=== PATIENT | female | born 1985 | race Caucasian/White ===

== ENCOUNTER 2023-04-07 10:45 | Emergency (ER) | payer OTHER, SELFPAY ==
[2023-04-07 10:54] VITALS: BP 107/70; PULSE 77; RESP 18; TEMP 36.8; O2SAT 100; BMI 35.9
--- NOTE | 2023-04-07 10:58 | XR_ITS ---
The [address] [address] Patient Name: LIANA JASON MRN: [id number] date: 1985 Sex: F Assigned Patient Location: ER Current Patient Location: ER Accession/Order Number: [id number] Exam Date: 04/07/2023 11:25 Report Date: 04/07/2023 12:07 At the request of: NIRMAL MORRISON Procedure: XR mandible <4V EXAM: XR mandible <4V HISTORY: right-sided pain after a seizure two days ago COMPARISON: None TECHNIQUE: Mandible study was performed with a total of 5 views obtained. FINDINGS: Mandible to include the condyles appears grossly unremarkable. No convincing evidence of acute fracture or dislocation. No obvious temporomandibular joint dislocation. Soft tissues appear grossly unremarkable. XR/XR mandible <4V IMPRESSION: Mandible study fails to demonstrate definite evidence of acute fracture or dislocation. If symptoms persist follow-up CT facial bones study may be considered for further evaluation. Follow-up as needed. Electronically authenticated by: SUZI JEONG Date: 04/07/2023 12:07
--- NOTE | 2023-04-07 10:59 | ED_ITS ---
HPI - General Adult General Chief complaint: Dental/Oral Stated complaint: UPPER EXTREMITY PAIN L SIDE FACE Time Seen by Provider: 04/07/23 10:48 Source: patient Mode of arrival: walk-in Limitations: no limitations History of Present Illness HPI narrative: 37-year-old female presents for pain in the right side of her jaw. She's had this for two days and she woke from a seizure. She didn't fall when she had her seizure. She doesn't recall any trauma and she doesn't complain of a tooth pain. It just isn't getting better so she came in here to get it checked out and it's moderate to severe. Related Data Home Medications Medication Instructions Recorded Confirmed levetiracetam 1,000 mg tablet 1,500 mg PO BID 04/07/23 04/07/23 topiramate 50 mg tablet 50 mg PO BID 04/07/23 04/07/23 Previous Rx's Medication Instructions Recorded ibuprofen 800 mg tablet 800 mg PO Q8H PRN pain #20 tabs 04/07/23 Allergies Allergy/AdvReac Type Severity Reaction Status Date / Time No Known Drug Allergies Allergy Verified 04/07/23 10:53 Review of Systems ROS Narrative A ten point review of systems is negative except as noted above. PFSH PFSH Social History Smoking status: Never smoker Exam Narrative Exam Narrative: Nurses note and vital signs reviewed and patient is not hypoxic. General: The patient appears uncomfortable. She is tearful. Skin: Warm, dry, no pallor noted. There is no rash noted. Head: Normocephalic, atraumatic Eye: Normal conjunctiva, no drainage Ears, Nose, Mouth, and Throat: oral mucosa is moist. Nares patent. mouth has no intraoral lesions. There is no obvious dental caries. No gingival swelling or erythema. No bleeding or pus. No swelling to the floor of her mouth. She has no obvious swelling to her face. Cardiovascular: Regular Rate and Rhythm Respiratory: Patient is in no distress, no accessory muscle use, lungs are clear to auscultation, no wheezing, rales or rhonchi Back: non-tender GI: soft and nontender Musculoskeletal: The patient has no evidence of calf tenderness, no pitting edema, symmetrical pulses noted bilaterally Neurological: A&O, normal speech Psychiatric: Cooperative Constitutional Vital Signs, click to edit/add: Last Vital Signs Temp 98.2 F 04/07/23 10:54 Pulse 77 04/07/23 10:54 Resp 18 04/07/23 10:54 BP 107/70 04/07/23 10:54 Pulse Ox 100 04/07/23 10:54 O2 Del Method Room Air 04/07/23 10:54 Course Vital Signs Vital signs: Vital Signs Temperature 98.2 F 04/07/23 10:54 Pulse Rate 77 04/07/23 10:54 Respiratory Rate 18 04/07/23 10:54 Blood Pressure 107/70 04/07/23 10:54 Pulse Oximetry 100 04/07/23 10:54 Oxygen Delivery Method Room Air 04/07/23 10:54 Temperature 98.2 F 04/07/23 10:54 Pulse Rate 77 04/07/23 10:54 Respiratory Rate 18 04/07/23 10:54 Blood Pressure 107/70 04/07/23 10:54 Pulse Oximetry 100 04/07/23 10:54 Oxygen Delivery Method Room Air 04/07/23 10:54 Medical Decision Making MDM Narrative Medical decision making narrative: mandible x-ray per radiologist shows no acute findings. She was given IM Toradol and she is going to follow-up with her dentist. Treatment diagnosis and follow- up were discussed with the patient. Differential Diagnosis Differential Diagnosis: jaw pain, mandible fracture, dental caries Imaging Data mandible x-ray: Radiologist's impression: Procedure: XR mandible <4V EXAM: XR mandible <4V HISTORY: right-sided pain after a seizure two days ago COMPARISON: None TECHNIQUE: Mandible study was performed with a total of 5 views obtained. FINDINGS: Mandible to include the condyles appears grossly unremarkable. No convincing evidence of acute fracture or dislocation. No obvious temporomandibular joint dislocation. Soft tissues appear grossly unremarkable. IMPRESSION: Mandible study fails to demonstrate definite evidence of acute fracture or dislocation. If symptoms persist follow-up CT facial bones study may be considered for further evaluation. Follow-up as needed. Electronically authenticated by: SUZI JEONG Date: 04/07/2023 12:07 Discharge Plan Discharge Chief Complaint: Dental/Oral Clinical Impression: Pain in lower jaw Patient Disposition: Home, Self-Care Time of Disposition Decision: 12:15 Condition: Good Mode of Transportation: Private Vehicle Prescriptions / Home Meds: New ibuprofen 800 mg tablet 800 mg PO Q8H PRN (Reason: pain) Qty: 20 0RF No Action levetiracetam 1,000 mg tablet 1,500 mg PO BID topiramate 50 mg tablet 50 mg PO BID Instructions: Atypical Facial Pain (ED) Additional Instructions: follow-up with your dentist Stand Alone Forms: Portal Instructions Referrals: STEFANI RUBY [Primary Care Provider] - 1 week
--- NOTE | 2023-04-07 11:00 | PC.NURSE ---
Reports pain to right side of jaw, no redness or swelling present.
[2023-04-07] MEDS: KETOROLAC TROMETHAMINE 60 MG/2 ML VIAL IM (12:22)
== END 2023-04-07 12:27 | disposition home or self-care (01) ==
PROVIDERS: Emergency Provider Emergency Medicine; PCP Family Medicine
DX: R68.84 Jaw pain (principal); R56.9 Unspecified convulsions
CPT/HCPCS: 70100; 96372; 99284

== ENCOUNTER 2023-10-03 11:27 | Outpatient (OUT) | payer BC, SELFPAY ==
--- NOTE | 2023-10-03 11:35 | US_ITS ---
[address] [address] Patient Name: LIANA JASON MRN: [id number] date: 1985 Sex: F Assigned Patient Location: [facility] Current Patient Location: [facility] Accession/Order Number: [id number] Exam Date: 10/03/2023 12:12 Report Date: 10/03/2023 12:54 At the request of: NON-STAFF PHYSICIAN Procedure: US renal BI EXAMINATION: US renal BI HISTORY: Dysuria, Tenderness COMPARISON: No relevant comparison available. TECHNIQUE: Ultrasound examination was performed of the bladder. FINDINGS: Right Kidney: Normal in size, contour and echotexture. 2 mm echogenic focus, nonobstructing nephrolith. The cortex measures 1.2 cm. Height: 4.3 cm Length: 10.5 cm Width: 4.1 cm Left Kidney: Normal in size, contour and echotexture. The cortex measures 1.3 cm. 1.1 cm anechoic area inferior lateral cortex, cortical cyst Height: 4.1 cm Length: 10.2 cm Width: 4.0 cm Urinary bladder: 250 mL Ureteral jets: Visualized bilaterally US/US renal BI IMPRESSION: 2 mm nonobstructing right nephrolith 1.1 cm left renal cortical cyst Electronically authenticated by: XANDER VITAL Date: 10/03/2023 12:54
--- OUTSIDE RECORDS SUMMARY | 2023-10-03 11:36 | XMS_ITS | CCD ---
Author Organization [facility] Care Team Providers Care Margin Clerk Name Role Phone DR KEERTHI WILLIAM Consulting Unavailable WILLIAM, DR KEERTHI Acevedo Attending Unavailable WILLIAM, DR KEERTHI Acevedo Admitting Unavailable WILLIAM, DR KEERTHI Acevedo Primary Care Unavailable MISC, DR ARMAS Admitting Unavailable MISC, DR ARMAS Consulting Unavailable MISC, DR ARMAS Attending Unavailable WILLIAM, DR KEERTHI Acevedo Primary Care Unavailable Joycelyn Nash Unavailable MD Keerthi William Primary Care Provider [phone] SHYAM Nash Attending Provider Joycelyn Nash Attending Unavailable Joycelyn Nash Admitting Unavailable Keerthi William Primary Care Unavailable Brigida Martin Primary Care Physician Laila Carmona Unavailable MARTA Santoyo Attending Rekha FAHAD Colby Attending Unavailable Allergies Allergy Classification Reported Allergen(s) Allergy Type Date of Onset Reaction(s) Facility (4 sources) NIFEdipine; Translations: [Procardia] Drug Allergy 6 tachycardia [facility] Repository (3 sources) NIFEdipine; Translations: [nifedipine] Drug Allergy 1 Tachycardia (finding) [facility] Medications Current Medications Medication Drug Class(es) Dates Sig (Normalized) Sig (Original) [id number] 200 actuat albuterol 0.09 mg/actuat metered dose inhaler (1 source) beta2-Adrenergic Agonist Start: 03-15-2023 take 2 puff(s) by inhalation four times daily as needed Albuterol Sulfate HFA 108 (90 Base) MCG/ACT 2 puffs Inhalation 4 times a day prn Feb, Active amitriptyline hydrochloride 25 mg oral tablet (1 source) Tricyclic Antidepressant Start: 10-21-2020 take 25 mg by mouth once daily at bedtime Amitriptyline Active 25 MG PO Daily at bedtime 30 October 21, 2020 12:00am benzonatate 100 mg oral capsule (1 source) Non-narcotic Antitussive Start: 03-14-2023 End: 03-24-2023 take 1 capsule by mouth three times daily Tessalon 100 mg Cap 100 mg = 1 cap(s), Oral, TID, X 10 day(s), # 30 cap(s), Refills(s) 0, Pharmacy: [phone], 154, cm, 03/14/23 11:26:00 EST, Height/Length Dosing, 86.7, kg, 02/11/23 10:10:00 EDT, Weight Dosing Start Date: 03/14/23 Stop Date: 03/24/23 Status: Ordered levETIRAcetam 1000 mg oral tablet (4 sources) Start: 02-11-2023 levetiracetam 1000 mg oral tablet See Instructions, Take 1 and 1/2 tablets BID, Refills(s) 0 Start Date: 02/11/23 Status: Ordered Start: 10-19-2020 End: 10-21-2020 take 750 mg by mouth twice daily Levetiracetam Discontinued 750 MG PO Twice daily October 19, 2020 12:00am October 21, 2020 1:39pm Keppra Active meclizine hydrochloride 25 mg oral tablet (1 source) Antiemetic Start: 10-21-2020 take 25 mg by mouth every eight hours Meclizine Active 25 MG PO Q8H October 21, 2020 12:00am predniSONE 20 mg oral tablet (1 source) Start: 03-15-2023 take 1 tablet by mouth every twelve hours predniSONE 20 MG 1 tablet Orally bid for 5 day(s) Feb, Active tiZANidine 4 mg oral tablet (3 sources) Central alpha-2 Adrenergic Agonist Start: 02-11-2023 take 2 tablets by mouth at bedtime tiZANidine 4 mg Tab 8 mg = 2 tab(s), Oral, Bedtime, Refills(s) 0 Start Date: 02/11/23 Status: Ordered tiZANidine HCl A ctive topiramate 100 mg oral tablet (3 sources) Start: 02-11-2023 take 1 tablet by mouth twice daily topiramate 100 mg Tab 100 mg = 1 tab(s), Oral, BID, Refills(s) 0 Start Date: 02/11/23 Status: Ordered Topamax Active traZODone hydrochloride 50 mg oral tablet (1 source) Serotonin Reuptake Inhibitor Start: 02-11-2023 traZODONE 50 mg Tab See Instructions, take half tablet for 2 weeks then increase to 1 tablet daily at bedtime, Refills(s) 0 Start Date: 02/11/23 Status: Ordered venlafaxine 37.5 mg oral tablet (1 source) Serotonin and Norepinephrine Reuptake Inhibitor Start: 10-19-2020 take 37.5 mg by mouth twice daily Venlafaxine Active 37.5 MG PO Twice daily October 19, 2020 12:00am Completed/Discontinued Medications Medication Drug Class(es) Dates Sig (Normalized) Sig (Original) Ketorolac (2 sources) Nonsteroidal Anti-inflammatory Drug, Cyclooxygenase Inhibitor Start: 09-11-2018 Toradol per 15 mg August, 60 mg Problems Active Problems Problem Classification Problem Date Documented Da te Episodic/Chronic Epilepsy; convulsions (4 sources) Epilepsy, unspecified, not intractable, without status epilepticus; Translations: [EPILEPSY UNS NOT INTRACT W/O SE] Onset: 04-30-2022 Chronic Epilepsy; convulsions (3 sources) Unspecified convulsions; Translations: [Seizure] Onset: 07-30-2021 10-21-2020 Episodic Headache; including migraine (1 source) Headache; Translations: [Headache] 10-21-2020 Episodic Other gastrointestinal disorders (2 sources) Diarrhea; Translations: [Diarrhea, unspecified] Onset: 03-14-2023 Episodic Other injuries and conditions due to external causes (1 source) Injury, unspecified, initial encounter Episodic Other lower respiratory disease (2 sources) Cough; Translations: [Cough, unspecified] Onset: 03-14-2023 Episodic Other upper respiratory infections (1 source) Sinusitis 02-11-2023 Chronic Other upper respiratory infections (2 sources) Acute pharyngitis; Translations: [Acute pharyngitis, unspecified] Onset: 03-14-2023 Episodic Otitis media and related conditions (1 source) Otitis media of left ear 02-11-2023 Episodic Residual codes; unclassified (1 source) Sleep deprivation; Translations: [Sleep deprivation] 10-21-2020 Episodic Superficial injury; contusion (1 source) Contusion of right hand, initial encounter Episodic Thyroid disorders (4 sources) Nontoxic multinodular goiter; Translations: [NONTOXIC MULTINODULAR GOITER] Onset: 07-25-2021 Chronic Unclassified (1 source) Contusion of right hand, initial encounter; Translations: [Contusion of right hand, initial encounter] Onset: 08-18-2022 Unclassified (1 source) History of clinical finding in subject 03-14-2023 Past or Other Problems Problem Classification Problem Date Documented Da te Episodic/Chronic Unclassified (1 source) Contact with and (suspected) exposure to covid-19 Z20.822 Viral infection (3 sources) Disease caused by 2019-nCoV; Translations: [COVID-19] Onset: 03-14-2023 Results Test Name Value Interpretation Reference Range Facility [facility] 04-25-2023 Forms [id number] IFF Normal [facility] ED Note-Physicianon 04-08-20 ED Note-Physician [id number] IFF Normal [facility] RAD - MISCon 04-07-2023 RAD - MISC [id number] IFF Normal [facility] COVID Quick Testingon 2022 Result Negative [employer] Other COVID/FLU RT-PCRon SARS-CoV-2 (COVID-19) RNA CECILE+probe Ql (Unsp spec) Positive [employer] Other COVID/FLU RT-PCR Negative [employer] Other Ambulatory Visit Summaryon 05-14-2022 Ambulatory Visit Summary LIANA JASON :1985 Visit Date:03/14/2023 Ambulatory Visit Instructions Your Diagnosis COVID Cough Sore throat Diarrhea Your Care Team Attending Physician - Leatha Coyne Primary Care Physician - Brigida Garg This Is Your Medications List benzonatate (Tessalon 100 mg Cap) Contact prescribing physician if questions or concerns levetiracetam (levetiracetam 1000 mg oral tablet) tizanidine (tiZANidine 4 mg Tab) topiramate (topiramate 100 mg Tab) trazodone (traZODONE 50 mg Tab) [Image Removed: STOP]Stop taking these medications fluconazole (Diflucan 150 mg Tab) Discharge Vitals Height 154 cm Height 61 in What to do next You Need to Schedule the Following Appointments Follow Up with Natanael LOZANO, Leatha Alvarado When: Only if needed Where: [address], [place] [address]- Medications What How Much When Why Instructions New benzonatate (Tessalon 100 mg Cap) 1 Capsules By Mouth 3 times a day Cough Duration: 10 Days Pickup at [phone] Unchanged levetiracetam (levetiracetam 1000 mg oral tablet) See instructions Take 1 and 1/ 2 tablets BID Contact prescribing physician if questions or concerns Unchanged tizanidine (tiZANidine 4 mg Tab) 2 Tablets By Mouth At bedtime Contact prescribing physician if questions or concerns Unchanged topiramate (topiramate 100 mg Tab) 1 Tablets By Mouth 2 times a day Contact prescribing physician if questions or concerns Unchanged trazodone (traZODONE 50 mg Tab) See instructions take half tablet for 2 weeks then increase to 1 tablet daily at bedtime Contact prescribing physician if questions or concerns Pharmacy Information [email or web address]: [address] [place], [place] [id number] [phone] What How Much When Comments Stop Taking fluconazole (Diflucan 150 mg Tab) 1 Tablets By Mouth Once Allergies Procardia (Tachycardia) Problems Ongoing - Any problem that you are currently receiving treatment for. Cough COVID Diarrhea History of seizures Left otitis media Sinusitis Sore throat Patient Survey You may receive a survey via text or e-mail asking about your office visit. Please share your experience with us by completing your survey. We appreciate your feedback and thank you for choosing us for your care. Education Materials Cough, Adult Coughing is a reflex that clears your throat and your airways (respiratory system). Coughing helps to heal and protect your lungs. It is normal to cough occasionally, but a cough that happens with other symptoms or lasts a long time may be a sign of a condition that needs treatment. An acute cough may only last 2?3 weeks, while a chronic cough may last 8 or more weeks. Coughing is commonly caused by: ? Infection of the respiratory systemby viruses or bacteria. ? Breathing in substances that irritate your lungs. ? Allergies. ? Asthma. ? Mucus that runs down the back of your throat (postnasal drip). ? Smoking. ? Acid backing up from the stomach into the esophagus (gastroesophageal reflux). ? Certain medicines. ? Chronic lung problems. ? Other medical conditions such as heart failure or a blood clot in the lung (pulmonary embolism). Follow these instructions at home: Medicines ? Take ggbz-lhc-rgcilgm and prescription medicines only as told by your health care provider. ? Talk with your health care provider before you take a cough suppressant medicine. Lifestyle ? Avoid cigarette smoke. Do not use any products that contain nicotine or tobacco, such as cigarettes, e-cigarettes, and chewing tobacco. If you need help quitting, ask your health care provider. ? Drink enough fluid to keep your urine pale yellow. ? Avoid caffeine. ? Do not drink alcohol if your health care provider tells you not to drink. General instructions ? Pay close attention to changes in your cough. Tell your health care provider about them. ? Always cover your mouth when you cough. ? Avoid things that make you cough, such as perfume, candles, cleaning products, or campfire or tobacco smoke. ? If the air is dry, use a cool mist vaporizer or humidifier in your bedroom or your home to help loosen secretions. ? If your cough is worse at night, try to sleep in a semi-upright position. ? Rest as needed. ? Keep all follow-up visits as told by your health care provider. This is important. Contact a health care provider if you: ? Have new symptoms. ? Cough up pus. ? Have a cough that does not get better after 2?3 weeks or gets worse. ? Cannot control your cough with cough suppressant medicines and you are losing sleep. ? Have pain that gets worse or pain that is not helped with medicine. ? Have a fever. ? Have unexplained weight loss. ? Have night sweats. Get help right away if: ? You co (more content not included)... Normal [facility] Family Medicine Office/Clini c Noteon 03-14-2023 Family Medicine Office/Clinic Note Chief Complaint Tested Postivie for COVID- History of Present Illness Liana is a 37 yo female presenting today for acute video visit d/t being COVID positive. Pt's PCP is Brigdia Martin Pt reports symptoms started 3 days ago Pt tested positive for COVID today Pt reports they are experiencing: SILVERIO, sore throat, cough, fever, body aches, diarrhea. Pt denies CP, SOB, wheezing, chest tightness, sinus pressure, ear pain/pressure, changes in taste/smell/appetite, abd pain, fatigue, urinary changes, or dizziness at this time. smoker: no no Hx of allergies, asthma, COPD, DM, CVD, CKD, HTN no Hx of deviated septum/sinus surgeries: no Pt had COVID in May Review of Systems PHQ Score Initial Depression Screen Score: 0 SCORE Physical Exam Vitals & Measurements HT: 61 in HT: 154 cm General: could not be assessed Eyes: could not be assessed Ears: Hearing grossly normal to conversational speech. Nose: could not be assessed Mouth: could not be assessed Neck: could not be assessed Lungs: normal respiratory effort. No shortness of breath noted while conversing. No audible wheezing. cough and congestion audible throughout telephone appt Cardiovascular: could not be assessed Neurologic: could not be assessed Skin: could not be assessed Musculoskeletal: could not be assessed Mental status: alert and oriented. Normal mood and affect, tearful throughout phone call Assessment/Plan Pt could not turn on the video portion of the phone - only audio available This visit was conducted via two-way, real-time interactive video communications from my office using IID due to the restrictions of the COVID-19 pandemic. No physical exam was conducted other than those areas of the body visible to telecommunications with the patient located at patient's home, with no-none_? in attendance. If it is determined that the patient should be evaluated in the clinic, the patient will be directed to the appropriate clinic or venue. The patient or their guardian verbally consented to this visit. Total time spent preparing the chart, conducting the encounter with the patient and family, and time spent documenting, reviewing, and ordering tests was _18? minutes. 1. COVID (U07.1: COVID-19) Please inform pt they are positive for COVID-19. Quarantine for 5 days from the start of symptoms or known exposure. Strict quarantine is recommended. If develops SOB/CP, severe pain/headache, seek ED/call 911- informing them of COVID + results prior to arrival/pickup. Discussed that COVID is a viral syndrome which typically last 5 to 12 days. Continue symptomatic treatment with as needed Tylenol/ibuprofen for any discomfort. Fluids, rest encouraged. New CDC guidelines are to quarantine x5 days from symptom onset. After 5 days may return to normal activities as long as overall improvement of symptoms and no fever for 24 hours. Needs to continue to wear a mask in public and while at work or school for the next 5 days after quarantine ends. Work note written until 03/17/23 Take the following: Vit D3 4000-10,000 units QD Vit C 2000 BID/TID Zinc 40 mg (elemental) QD Continue regimen x 2 weeks 2. Cough (R05.9: Cough, unspecified) continue using tessalon perles TID x 10 days - already prescribed by Brigida Swab Suspect viral URI and discussed likely duration of sx and red flags/when to seek emergency care. Rest and push fluids, Vit C, D and zinc x 2 weeks. Pt verbalized understanding f/u PRN Ordered: benzonatate, 100 mg = 1 cap(s), Oral, TID, X 10 day(s), # 30 cap(s), Refills(s) 0, Pharmacy: [email or web address], 154, cm, 03/14/23 11:26:00 EST, Height/Length Dosing, 86.7, kg, 02/11/23 10:10:00 EDT, Weight Dosing 3. Sore throat (J02.9: Acute pharyngitis, unspecified) For symptom management, recommended using Cepacol throat lozenges (if >5 years old), Chloraseptic spray (if >3 years old), tea, honey (avoid if <1 year old), warm salt water gargles. Cool/cold drinks may be soothing to the throat. Follow up with Primary Care Provider if symptoms do not improve over next 7-10 days, if become worse, or if develops rash. 4. Diarrhea (R19.7: Diarrhea, unspecified) Pt denies any alarm features including, profuse watery diarrhea causing hypovolemia, blood in stool, severe abd pain, unexplained weight loss, nocturnal diarrhea, rectal bleeding, pus in stool, fever > 101.3*F, ABRAHAM, family hx of colon CA, celiac dz or IBD. [place] stool form scale discussed. Will order CMP, CBC and stool studies (stool culture, clostridium difficile by PCR, enteric panel by PCR, fecal WBC lactoferrin, giardia lamblia direct detection EIA, OandA exam (ova and parasites) and call pt with results. Recommended the pt use diluted fruit juices or electrolytes drinks and saltine crackers with brothes to meet fluid and salt needs d/t mild illness. Boiled starches and cereals (eg, potatoes, noodles, rice, wheat, and oat) with salt are indicated in patients with watery diarrhea; crackers (more content not included)... Normal [facility] Comment on above: Result Comment: Elec tronically Signed By: Natanael LOZANO, Leatha Alvarado\.br\Date and Time Signed: 03/14/23 11:47 EST Patient Educationon 03-14-20 Patient Education ENT Cough, Adult Coughing is a reflex that clears your throat and your airways (respiratory system). Coughing helps to heal and protect your lungs. It is normal to cough occasionally, but a cough that happens with other symptoms or lasts a long time may be a sign of a condition that needs treatment. An acute cough may only last 2?3 weeks, while a chronic cough may last 8 or more weeks. Coughing is commonly caused by: ? Infection of the respiratory systemby viruses or bacteria. ? Breathing in substances that irritate your lungs. ? Allergies. ? Asthma. ? Mucus that runs down the back of your throat (postnasal drip). ? Smoking. ? Acid backing up from the stomach into the esophagus (gastroesophageal reflux). ? Certain medicines. ? Chronic lung problems. ? Other medical conditions such as heart failure or a blood clot in the lung (pulmonary embolism). Follow these instructions at home: Medicines ? Take zzlq-aie-fzwuign and prescription medicines only as told by your health care provider. ? Talk with your health care provider before you take a cough suppressant medicine. Lifestyle ? Avoid cigarette smoke. Do not use any products that contain nicotine or tobacco, such as cigarettes, e-cigarettes, and chewing tobacco. If you need help quitting, ask your health care provider. ? Drink enough fluid to keep your urine pale yellow. ? Avoid caffeine. ? Do not drink alcohol if your health care provider tells you not to drink. General instructions ? Pay close attention to changes in your cough. Tell your health care provider about them. ? Always cover your mouth when you cough. ? Avoid things that make you cough, such as perfume, candles, cleaning products, or campfire or tobacco smoke. ? If the air is dry, use a cool mist vaporizer or humidifier in your bedroom or your home to help loosen secretions. ? If your cough is worse at night, try to sleep in a semi-upright position. ? Rest as needed. ? Keep all follow-up visits as told by your health care provider. This is important. Contact a health care provider if you: ? Have new symptoms. ? Cough up pus. ? Have a cough that does not get better after 2?3 weeks or gets worse. ? Cannot control your cough with cough suppressant medicines and you are losing sleep. ? Have pain that gets worse or pain that is not helped with medicine. ? Have a fever. ? Have unexplained weight loss. ? Have night sweats. Get help right away if: ? You cough up blood. ? You have difficulty breathing. ? Your heartbeat is very fast. These symptoms may represent a serious problem that is an emergency. Do not wait to see if the symptoms will go away. Get medical help right away. Call your local emergency services (911 in the [place] Do not drive yourself to the hospital. Summary ? Coughing is a reflex that clears your throat and your airways. It is normal to cough occasionally, but a cough that happens with other symptoms or lasts a long time may be a sign of a condition that needs treatment. ? Take bykz-xtg-bspqrwh and prescription medicines only as told by your health care provider. ? Always cover your mouth when you cough. ? Contact a health care provider if you have new symptoms or a cough that does not get better after 2?3 weeks or gets worse. This information is not intended to replace advice given to you by your health care provider. Make sure you discuss any questions you have with your health care provider. Document Revised: 04/26/2019 Document Reviewed: 04/26/2019 Elsevier Patient Education ? 2022 [employer] Infectious Disease Diarrhea, Adult Diarrhea is frequent loose and watery bowel movements. Diarrhea can make you feel weak and cause you to become dehydrated. Dehydration can make you tired and thirsty, cause you to have a dry mouth, and decrease how often you urinate. Diarrhea typically lasts 2?3 days. However, it can last longer if it is a sign of something more serious. It is important to treat your diarrhea as told by your health care provider. Follow these instructions at home: Eating and drinking Follow these recommendations as told by your health care provider: ? Take an oral rehydration solution (ORS). This is an hkuq-xbs-eujzjnh medicine that helps return your body to its normal balance of nutrients and water. It is found at pharmacies and retail stores. ? Drink plenty of fluids, such as water, ice chips, diluted fruit juice, and low-calorie sports drinks. You can drink milk also, if desired. ? Avoid drinking fluids that contain a lot of sugar or caffeine, such as energy drinks, sports drinks, and soda. ? Eat bland, cwdk-zy-etzqfl foods in small amounts as you are able. These foods include bananas, applesauce, rice, lean meats, toast, and crackers. ? Avoid alcohol. ? Avoid spicy or fatty foods. Medicines (more content not included)... Normal [facility] Provider Letteron 03-14-2023 Provider Letter (Inserted Image. Rekha ble to display) March 14, 2023 LIANA JASON [address] [place] [address] : 1985 To Whom It May Concern, Please excuse above patient from work. Date of Illness: From: _03/14/2023 To: _03/16/2023 May Return to Work On:03/17/2023 Sincerely, Leatha Santoyo [facility] [address] [place] [address], [place] [address] [facility] Lab Reportson 02-12-2023 Lab Reports [id number] IFF Normal [facility] Ambulatory Visit Summaryon 1 Ambulatory Visit Summary LIANA JASON :1985 Visit Date:02/11/2023 Ambulatory Visit Instructions Your Diagnosis Left otitis media Sinusitis Non-smoker BMI 36.0-36.9,adult Your Care Team Attending Physician - Brigida Garg Primary Care Physician - Brigida Garg This Is Your Medications List levetiracetam (levetiracetam 1000 mg oral tablet) tizanidine (tiZANidine 4 mg Tab) topiramate (topiramate 100 mg Tab) trazodone (traZODONE 50 mg Tab) Discharge Vitals Temperature (Tympanic) 36.6 ?C Heart Rate (Peripheral) 88 Respiratory Rate 20 Blood Pressure 118/76 Height 154.0 cm Height 61 in Weight 86.7 kg Weight 190.74 lb BMI 36.56 Medications What How Much When Instructions Unchanged levetiracetam (levetiracetam 1000 mg oral tablet) See instructions Take 1 and 1/ 2 tablets BID Unchanged tizanidine (tiZANidine 4 mg Tab) 2 Tablets By Mouth At bedtime Unchanged topiramate (topiramate 100 mg Tab) 1 Tablets By Mouth 2 times a day Unchanged trazodone (traZODONE 50 mg Tab) See instructions take half tablet for 2 weeks then increase to 1 tablet daily at bedtime Allergies Procardia (Tachycardia) Problems Ongoing - Any problem that you are currently receiving treatment for. Left otitis media Sinusitis Patient Survey You may receive a survey via text or e-mail asking about your office visit. Please share your experience with us by completing your survey. We appreciate your feedback and thank you for choosing us for your care. [facility] Family Medicine Office/Clini c Noteon 02-11-2023 Family Medicine Office/Clinic Note HPI Staff Liana is a 37 year old female presenting to [facility] Establish Care: History: Any previous diagnosis: Anxiety,Menorrhagia, seizures epilepsy History of seeing any specialist: Dr Meyer When was your last doctors visit: Last provider: Dr William Any recent labs: CBC & CMP 04/30/2022 Health Maintenance UTD: Colonoscopy: no Mammogram: no Pelvic/pap: 5 years was normal Acute: Current issues/complaints: Respiratory C/O: Onset: 1 week ago Body aches: yes Chest congestion: yes Chills: no Cough: yes Ear complaints: no Eye itching/watering: no Fever: no Headache: yes Nasal congestion: yes Nasal discharge: yes Poor appetite: no Reduced activity: no Sinus pain/pressure: yes Sneezing: yes Sputum production: no Wheezing: no Ill contacts: yes Remedies tried: ibuprofen and Tylenol's Questions/Concerns: pt hasn't taken anything she was afraid to take anything didn't know what would be safe. 02/10/23 tested for covid was negative. History of Present Illness pt presents today for cough and congestion that is worsening. with body aches Review of Systems PHQ Score Initial Depression Screen Score: 0 ROS - Provider Constitutional: no fever, no chills, no sweats, no fatigue Respiratory: no shortness of breath, yes cough, no orthopnea, no wheezing. congestion Cardiovascular: no chest pain, no palpitations, no edema. Neurologic: no headache, no dizziness, no numbness, no weakness. Physical Exam Vitals & Measurements T: 36.6 ?C(Tympanic) HR: 88(Peripheral) RR: 20 BP: 118/76 SpO2: 99% HT: 61 in HT: 154.0 cm WT: 86.7 kg WT: 190.74 lb BMI: 36.56 General: alert, no acute distress ENMT: oral mucosa moist, yes pharyngeal erythema or no exudate, LEft TM red and full of fluid Cardiovascular: regular rate and rhythm, normal peripheral perfusion Respiratory: Lungs CTA, respirations non labored Extremities: no deformity, no trauma Neurological: oriented x 4, LOC appropriate for age, CN II-XII intact, motor strength equal & normal bilaterally, speech normal Assessment/Plan 1. Left otitis media (H66.92: Otitis media, unspecified, left ear) Left otitis media noted on exam. pt states her jaw on the left side is also hurting. will order amoxicillin and medrol dose pack. all questions answered. RTC as needed Ordered: methylPREDNISolone, = 1 packet(s), Oral, As Directed, as directed on package labeling, X 6 day(s), # 21 tab(s), Refills(s) 0, Pharmacy: [email or web address], 154, cm, 02/11/23 10:10:00 EDT, Height/Length Dosing, 86.7, kg, 02/11/23 10:10:00 EDT, Weight Dosing 2. Sinusitis (J32.9: Chronic sinusitis, unspecified) see above Ordered: methylPREDNISolone, = 1 packet(s), Oral, As Directed, as directed on package labeling, X 6 day(s), # 21 tab(s), Refills(s) 0, Pharmacy: [email or web address], 154, cm, 02/11/23 10:10:00 EDT, Height/Length Dosing, 86.7, kg, 02/11/23 10:10:00 EDT, Weight Dosing 3. Non-smoker (Z78.9: Other specified health status) continue not smoking Ordered: methylPREDNISolone, = 1 packet(s), Oral, As Directed, as directed on package labeling, X 6 day(s), # 21 tab(s), Refills(s) 0, Pharmacy: [email or web address], 154, cm, 02/11/23 10:10:00 EDT, Height/Length Dosing, 86.7, kg, 02/11/23 10:10:00 EDT, Weight Dosing 4. BMI 36.0-36.9,adult (Z68.36: Body mass index [BMI] 36.0-36.9, adult) BMI education complere Ordered: methylPREDNISolone, = 1 packet(s), Oral, As Directed, as directed on package labeling, X 6 day(s), # 21 tab(s), Refills(s) 0, Pharmacy: [email or web address], 154, cm, 02/11/23 10:10:00 EDT, Height/Length Dosing, 86.7, kg, 02/11/23 10:10:00 EDT, Weight Dosing Orders: amoxicillin, 500 mg = 1 tab(s), Oral, TID, X 7 day(s), # 21 tab(s), Refills(s) 0, Pharmacy: [email or web address], 154, cm, 02/11/23 10:10:00 EDT, Height/Length Dosing, 86.7, kg, 02/11/23 10:10:00 EDT, Weight Dosing Follow-up No qualifying data available Problem List/Past Medical History Ongoing Left otitis media Sinusitis Historical No qualifying data Medications amoxicillin 500 mg oral tablet, 500 mg= 1 tab(s), Oral, TID levetiracetam 1000 mg oral tablet, See Instructions Medrol 4 mg Tab, 1 packet(s), Oral, As Directed tiZANidine 4 mg Tab, 8 mg= 2 tab(s), Oral, Bedtime topiramate 100 mg Tab, 100 mg= 1 tab(s), Oral, BID traZODONE 50 mg Tab, See Instructions Allergies Procardia (Tachycardia) Social History Tobacco Never (less than 100 in lifetime) Tobacco Use:. Never Smokeless Tobacco Use:. Household tobacco concerns: No., 02/11/2023 [facility] Comment on above: Result Comment: Elec tronically Signed By: Brigida Garg\.br\Date and Time Signed: 02/11/23 10:38 EDT XR hand RT min 3V*on 023 XR hand RT min 3V* [facility] Main [place] [address] [place] [address] XRay Report Signed Patient: Liana Jason MR#: [id number] : 1985 Acct:[id number] Age/Sex: 36 / F ADM Date: 08/18/22 Loc: XDUCLY Room: Type: [facility] Attending Dr: Joycelyn Nash APRN Copies to: Joycelyn Nash APRN Ordering Provider: Joycelyn Nash APRN Date of Service: 08/18/22 XR/XR hand RT min 3V*: Injury 4 views right hand plain film COMPARISON: None HISTORY: Right hand injury. Seizure. Third metacarpal pain ACUTE FINDINGS: None DEGENERATIVE CHANGE: Unremarkable SOFT TISSUE FINDINGS: Unremarkable JOINT EFFUSION: None POSTOP CHANGES: None BONY MINERALIZATION: Adequate XR/XR hand RT min 3V* IMPRESSION: No acute findings Impression dictated by: Haider Law M.D.08/18/2022 1:35 PM Dictation Location: [facility]--03 Transcribed By: [facility] 08/18/22 1335 Dictated By: Haider Law DO 08/18/22 1332 Signed By: 08/18/22 1335 Normal [facility] XR hand RT min 3V* [facility] [employer] Other XR hand RT min 3V* [facility] [employer] Other XR hand RT min 3V* [address] [place] [address] [employer] Other XR hand RT min 3V* [place] [address] [employer] Other XR hand RT min 3V* XRay Report [employer] Other XR hand RT min 3V* Signed [employer] Other XR hand RT min 3V* Patient: Liana Jason MR#: [id number] [employer] Other XR hand RT min 3V* 93 [employer] Other XR hand RT min 3V* : 1985 Acct:[id number] [employer] Other XR hand RT min 3V* Age/Sex: 36 / F ADM Date: 08/18/22 [employer] Other XR hand RT min 3V* Loc: XDUCLY Room: Type: [facility] [employer] Other XR hand RT min 3V* Attending Dr: Joycelyn Nash [facility] [employer] Other XR hand RT min 3V* Copies to: Joycelyn Nash [employer] Other XR hand RT min 3V* Ordering Provider: Joycelyn Nash APRN [employer] Other XR hand RT min 3V* Date of Service: 08/18/22 [employer] Other XR hand RT min 3V* XR/XR hand RT min 3V*: Injury [employer] Other XR hand RT min 3V* 4 views right hand plain film [employer] Other XR hand RT min 3V* COMPARISON: None [employer] Other XR hand RT min 3V* HISTORY: Right hand injury. Seizure. Third metacarpal pain [employer] Other XR hand RT min 3V* ACUTE FINDINGS: None [employer] Other XR hand RT min 3V* DEGENERATIVE CHANGE: Unremarkable [employer] Other XR hand RT min 3V* SOFT TISSUE FINDINGS: Unremarkable [employer] Other XR hand RT min 3V* JOINT EFFUSION: None [employer] Other XR hand RT min 3V* POSTOP CHANGES: None [employer] Other XR hand RT min 3V* BONY MINERALIZATION: Adequate [employer] Other XR hand RT min 3V* XR/XR hand RT min 3V* [employer] Other XR hand RT min 3V* IMPRESSION: No acute findings [employer] Other XR hand RT min 3V* Impression dictated by: Haider Law M.D.08/18/2022 1:35 PM [employer] Other XR hand RT min 3V* Dictation Location: [facility] [employer] Other XR hand RT min 3V* Transcribed By: MAHENDRA 08/18/22 [facility] [employer] Other XR hand RT min 3V* Dictated By: Haider Law DO 08/18/22 1332 [employer] Other XR hand RT min 3V* Signed By: [employer] Other XR hand RT min 3V* 08/18/22 1335 [employer] Other CBC AUTO DIFFon 04-30-2022 BASO # 0.1 103/ul Normal 0.0-0.1 [facility] Comment on above: Performed By: #### C BC #### [facility] [address] [place] [address] Dr. Ayo Martinez Basophils/100 WBC (Bld) 0.9 % Normal 0.2-2.0 [facility] Comment on above: Performed By: #### C BC #### [facility] [address] [place] [address] Dr. Ayo Martinez EO # 0.2 103/ul Normal 0.0-0.7 [facility] Comment on above: Performed By: #### C BC #### [facility] [address] [place] [address] Dr. Ayo Martinez Eosinophils/100 WBC (Bld) 2.1 % Normal 0.9-7.0 [facility] Comment on above: Performed By: #### C BC #### [facility] [address] [place] [address] Dr. Ayo Martinez Erythrocyte distribution width (RBC) [Ratio] 13.2 % Normal 11.0-15.0 [facility] Comment on above: Performed By: #### C BC #### [facility] [address] [place] [address] Dr. Ayo Martinez Hematocrit (Bld) [Volume fraction] 36.1 % Normal 36.0-48.0 [facility] Comment on above: Performed By: #### C BC #### [facility] [address] [place] [address] Dr. Ayo Martinez Hemoglobin (Bld) [Mass/Vol] 11.9 g/dL Critically low 12.0-16.0 [facility] Comment on above: Performed By: #### C BC #### [facility] [address] [place] [address] Dr. Ayo Martinez IG # 0.01 10e3/ul Normal 0.00-0.03 [facility] Comment on above: Performed By: #### C BC #### [facility] [address] [place] [address] Dr. Ayo Martinez IG % 0.1 % Normal 0.0-0.5 [facility] Comment on above: Performed By: #### C BC #### [facility] [address] [place] [address] Dr. Ayo Martinez LYMPH # 2.0 103/ul Normal 1.2-3.8 [facility] Comment on above: Performed By: #### C BC #### [facility] [address] [place] [address] Dr. Ayo Martinez Lymphocytes/100 WBC (Bld) 28.4 % Normal 20.5-60.0 [facility] Comment on above: Performed By: #### C BC #### [facility] [address] [place] [address] Dr. Ayo Martinez MANUAL DIFF REQ NO Normal [facility] Comment on above: Performed By: #### C BC #### [facility] [address] [place] [address] Dr. Ayo Martinez MCH (RBC) [Entitic mass] 27.7 pg Normal 26.7-34.0 [facility] Comment on above: Performed By: #### C BC #### [facility] [address] [place] [address] Dr. Ayo Martinez MCHC (RBC) [Mass/Vol] 33.0 g/dL Normal 29.9-35.2 [facility] Comment on above: Performed By: #### C BC #### [facility] [address] [place] [address] Dr. Ayo Martinez MCV (RBC) [Entitic vol] 84.0 fL Normal 81.0-99.0 [facility] Comment on above: Performed By: #### C BC #### [facility] [address] [place] [address] Dr. Ayo Martinez MONO # 0.6 103/ul Normal 0.3-0.8 [facility] Comment on above: Performed By: #### C BC #### [facility] [address] [place] [address] Dr. Ayo Martinez Monocytes/100 WBC (Bld) 7.8 % Normal 1.7-12.0 [facility] Comment on above: Performed By: #### C BC #### [facility] [address] [place] [address] Dr. Ayo Martinez NEUT # 4.3 103/ul Normal 1.4-6.5 [facility] Comment on above: Performed By: #### C BC #### [facility] [address] [place] [address] Dr. Ayo Martinez Neutrophils/100 WBC (Bld) 60.7 % Normal 43.0-75.0 [facility] Comment on above: Performed By: #### C BC #### [facility] [address] [place] [address] Dr. Ayo Martinez Platelet mean volume (Bld) [Entitic vol] 9.6 fL Normal 9.5-13.5 [facility] Comment on above: Performed By: #### C BC #### [facility] [address] [place] [address] Dr. Ayo Martinez PLT 245 103/ul Normal 150-450 [facility] Comment on above: Performed By: #### C BC #### [facility] [address] [place] [address] Dr. Ayo Martinez RBC 4.30 106/ul Normal 4.20-5.40 [facility] Comment on above: Performed By: #### C BC #### [facility] [address] [place] [address] Dr. Ayo Martinez WBC 7.0 103/ul Normal 4.0-11.0 [facility] Comment on above: Performed By: #### C BC #### [facility] [address] [place] [address] Dr. Ayo Martinez PROF 14(COMP METB)on 01-10-2 023 Albumin [Mass/Vol] 3.5 g/dL Normal 3.4-5.0 [facility] Comment on above: Performed By: #### C MP #### [facility] [address] [place] [address] Dr. Ayo Martinez Albumin/Globulin [Mass ratio] 0.8 {ratio} Normal [facility] Comment on above: Performed By: #### C MP #### [facility] [address] [place] [address] Dr. Ayo Martinez ALP [Catalytic activity/Vol] 129 U/L Critically high 46-116 [facility] Comment on above: Performed By: #### C MP #### [facility] [address] [place] [address] Dr. Ayo Martinez ALT [Catalytic activity/Vol] 20 U/L Normal 14-59 [facility] Comment on above: Performed By: #### C MP #### [facility] [address] [place] [address] Dr. yAo Martinez Anion gap [Moles/Vol] 12.3 mmol/L Normal [facility] Comment on above: Performed By: #### C MP #### [facility] [address] [place] [address] Dr. Ayo Martinez AST [Catalytic activity/Vol] 18 U/L Normal 15-37 [facility] Comment on above: Performed By: #### C MP #### [facility] [address] [place] [address] Dr. Ayo Martinez Bilirubin [Mass/Vol] 0.3 mg/dL Normal 0.2-1.0 [facility] Comment on above: Performed By: #### C MP #### [facility] [address] [place] [address] Dr. Ayo Martinez Calcium [Mass/Vol] 8.9 mg/dL Normal 8.5-10.1 [facility] Comment on above: Performed By: #### C MP #### [facility] [address] [place] [address] Dr. Ayo Martinez Chloride [Moles/Vol] 108 mmol/L Critically high 98-107 [facility] Comment on above: Performed By: #### C MP #### [facility] [address] [address] [address] Ayo Martinez CO2 [Moles/Vol] 24.8 mmol/L Normal 21.0-32.0 [facility] Comment on above: Performed By: #### C MP #### [facility] [address] [address] [address] Ayo Martinez Creatinine [Mass/Vol] 0.87 mg/dL Normal 0.55-1.02 [facility] Comment on above: Performed By: #### C MP #### [facility] [address] [address] [address] Ayo Martinez EGFR-AF CHILEAN >60 Normal >=60 [facility] Comment on above: Performed By: #### C MP #### [facility] [address] [place] [address] Dr. Ayo Martinez EGFR-NON AF CHILEAN >60 Normal >=60 [facility] Comment on above: Performed By: #### C MP #### [facility] [address] [place] [address] Dr. Ayo Martinez Globulin (S) [Mass/Vol] 4.4 g/dL Normal [facility] Comment on above: Performed By: #### C MP #### [facility] [address] [place] [address] Dr. Ayo Martinez Glucose [Mass/Vol] 88 mg/dL Normal 74-106 [facility] Comment on above: Performed By: #### C MP #### [facility] [address] [place] [address] Dr. Ayo Martinez Potassium [Moles/Vol] 4.1 mmol/L Normal 3.5-5.1 [facility] Comment on above: Performed By: #### C MP #### [facility] [address] [place] [address] Dr. Ayo Martinez Protein [Mass/Vol] 7.9 g/dL Normal 6.4-8.2 [facility] Comment on above: Performed By: #### C MP #### [facility] [address] [place] [address] Dr. Ayo Martinez Sodium [Moles/Vol] 141 mmol/L Normal 136-145 [facility] Comment on above: Performed By: #### C MP #### [facility] [address] [place] [address] Dr. Ayo Martinez Urea nitrogen [Mass/Vol] 10.0 mg/dL Normal 7.0-18.0 [facility] Comment on above: Performed By: #### C MP #### [facility] [address] [place] [address] Dr. Ayo Martinez Urea nitrogen/Creatini ne [Mass ratio] 11.5 mg/mg Normal [facility] Comment on above: Performed By: #### C MP #### [facility] [address] [place] [address] Dr. Ayo Martinez LEVETIRACETAM, SERUM OR PLAS MAon 07-30-2021 Levetiracetam, S 20.9 ug/mL Normal 10.0-40.0 [facility] Comment on above: Performed By: #### K EPPRA #### [facility] [address] [place] [address] Dr. Ayo Martinez CBC AUTO DIFFon 07-25-2021 BASO # 0.1 103/ul Normal 0.0-0.1 [facility] Comment on above: Performed By: #### C BC #### [facility] [address] [place] [address] Dr. Ayo Martinez Basophils/100 WBC (Bld) 0.6 % Normal 0.2-2.0 [facility] Comment on above: Performed By: #### C BC #### [facility] [address] [place] [address] Dr. Ayo Martinez EO # 0.2 103/ul Normal 0.0-0.7 [facility] Comment on above: Performed By: #### C BC #### [facility] [address] [place] [address] Dr. Ayo Martinez Eosinophils/100 WBC (Bld) 1.9 % Normal 0.9-7.0 [facility] Comment on above: Performed By: #### C BC #### [facility] [address] [address] [address] Ayo Martinez Erythrocyte distribution width (RBC) [Ratio] 14.4 % Normal 11.0-15.0 [facility] Comment on above: Performed By: #### C BC #### [facility] [address] [place] [address] Dr. Ayo Martinez Hematocrit (Bld) [Volume fraction] 37.8 % Normal 36.0-48.0 [facility] Comment on above: Performed By: #### C BC #### [facility] [address] [place] [address] Dr. Ayo Martinez Hemoglobin (Bld) [Mass/Vol] 11.9 g/dL Critically low 12.0-16.0 [facility] Comment on above: Performed By: #### C BC #### [facility] [address] [place] [address] Dr. Ayo Martinez IG # 0.03 10e3/ul Normal 0.00-0.03 [facility] Comment on above: Performed By: #### C BC #### [facility] [address] [place] [address] Dr. Ayo Martinez IG % 0.4 % Normal 0.0-0.5 [facility] Comment on above: Performed By: #### C BC #### [facility] [address] [place] [address] Dr. Ayo Martinez LYMPH # 2.1 103/ul Normal 1.2-3.8 [facility] Comment on above: Performed By: #### C BC #### [facility] [address] [place] [address] Dr. Ayo Martinez Lymphocytes/100 WBC (Bld) 25.7 % Normal 20.5-60.0 [facility] Comment on above: Performed By: #### C BC #### [facility] [address] [place] [address] Dr. Ayo Martinez MANUAL DIFF REQ NO Normal [facility] Comment on above: Performed By: #### C BC #### [facility] [address] [place] [address] Dr. Ayo Martinez MCH (RBC) [Entitic mass] 26.8 pg Normal 26.7-34.0 [facility] Comment on above: Performed By: #### C BC #### [facility] [address] [place] [address] Dr. Ayo Martinez MCHC (RBC) [Mass/Vol] 31.5 g/dL Normal 29.9-35.2 [facility] Comment on above: Performed By: #### C BC #### [facility] [address] [place] [address] Dr. Ayo Martinez MCV (RBC) [Entitic vol] 85.1 fL Normal 81.0-99.0 [facility] Comment on above: Performed By: #### C BC #### [facility] [address] [place] [address] Dr. Ayo Martinez MONO # 0.5 103/ul Normal 0.3-0.8 [facility] Comment on above: Performed By: #### C BC #### [facility] [address] [place] [address] Dr. Ayo Martinez Monocytes/100 WBC (Bld) 6.1 % Normal 1.7-12.0 [facility] Comment on above: Performed By: #### C BC #### [facility] [address] [place] [address] Dr. Ayo Martinez NEUT # 5.3 103/ul Normal 1.4-6.5 [facility] Comment on above: Performed By: #### C BC #### [facility] [address] [place] [address] Dr. Ayo Martinez Neutrophils/100 WBC (Bld) 65.3 % Normal 43.0-75.0 [facility] Comment on above: Performed By: #### C BC #### [facility] [address] [place] [address] Dr. Ayo Martinez Platelet mean volume (Bld) [Entitic vol] 9.8 fL Normal 9.5-13.5 [facility] Comment on above: Performed By: #### C BC #### [facility] [address] [address] [address] Ayo Martinez PLT 320 103/ul Normal 150-450 [facility] Comment on above: Performed By: #### C BC #### [facility] [address] [place] [address] Dr. Ayo Martinez RBC 4.44 106/ul Normal 4.20-5.40 [facility] Comment on above: Performed By: #### C BC #### [facility] [address] [place] [address] Dr. Ayo Martinez WBC 8.1 103/ul Normal 4.0-11.0 [facility] Comment on above: Performed By: #### C BC #### [facility] [address] [place] [address] Dr. Ayo Martinez FREE T3on 07-25-2021 FREE T3 3.63 pg/mlL Normal 2.77-5.27 [facility] Comment on above: Performed By: #### F T3, TSH, CMP #### [facility] [address] [place] [address] Dr. Ayo Martinez FREE T4on 07-25-2021 Free T4 [Mass/Vol] 1.00 ng/dL Normal 0.78-2.19 [facility] Comment on above: Performed By: #### F T4 #### [facility] [address] [place] [address] Dr. Ayo Martinez PROF 14(COMP METB)on 022 Albumin [Mass/Vol] 3.7 g/dL Normal 3.4-5.0 [facility] Comment on above: Performed By: #### F T3, TSH, CMP #### [facility] [address] [place] [address] Dr. Ayo Martinez Albumin/Globulin [Mass ratio] 1.0 {ratio} Normal [facility] Comment on above: Performed By: #### F T3, TSH, CMP #### [facility] [address] [place] [address] Dr. Ayo Martinez ALP [Catalytic activity/Vol] 136 U/L Critically high 46-116 [facility] Comment on above: Performed By: #### F T3, TSH, CMP #### [facility] [address] [address] [address] Ayo Martinez ALT [Catalytic activity/Vol] 17 U/L Normal 14-59 [facility] Comment on above: Performed By: #### F T3, TSH, CMP #### [facility] [address] [address] [address] Ayo Martinez Anion gap [Moles/Vol] 14.7 mmol/L Normal [facility] Comment on above: Performed By: #### F T3, TSH, CMP #### [facility] [address] [address] [address] Ayo Martinez AST [Catalytic activity/Vol] 12 U/L Critically low 15-37 [facility] Comment on above: Performed By: #### F T3, TSH, CMP #### [facility] [address] [address] [address] Ayo Martinez Bilirubin [Mass/Vol] 0.2 mg/dL Normal 0.2-1.3 [facility] Comment on above: Performed By: #### F T3, TSH, CMP #### [facility] [address] [address] [address] Ayo Martinez Calcium [Mass/Vol] 8.6 mg/dL Normal 8.5-10.1 [facility] Comment on above: Performed By: #### F T3, TSH, CMP #### [facility] [address] [address] [address] Ayo Martinez Chloride [Moles/Vol] 105 mmol/L Normal 98-107 [facility] Comment on above: Performed By: #### F T3, TSH, CMP #### [facility] [address] [address] [address] yAo Martinez CO2 [Moles/Vol] 23.4 mmol/L Normal 22.0-30.0 [facility] Comment on above: Performed By: #### F T3, TSH, CMP #### [facility] [address] [address] [address] Ayo Martinez Creatinine [Mass/Vol] 0.79 mg/dL Normal 0.52-1.04 [facility] Comment on above: Performed By: #### F T3, TSH, CMP #### [facility] [address] [place] [address] Dr. Ayo Martinez EGFR-AF CHILEAN >60 Normal >=60 [facility] Comment on above: Performed By: #### F T3, TSH, CMP #### [facility] [address] [place] [address] Dr. Ayo Martinez EGFR-NON AF CHILEAN >60 Normal >=60 [facility] Comment on above: Performed By: #### F T3, TSH, CMP #### [facility] [address] [place] [address] Dr. Ayo Martinez Globulin (S) [Mass/Vol] 3.8 g/dL Normal [facility] Comment on above: Performed By: #### F T3, TSH, CMP #### [facility] [address] [place] [address] Dr. Ayo Martinez Glucose [Mass/Vol] 90 mg/dL Normal 74-106 [facility] Comment on above: Performed By: #### F T3, TSH, CMP #### [facility] [address] [place] [address] Dr. Ayo Martinez Potassium [Moles/Vol] 4.1 mmol/L Normal 3.4-5.0 [facility] Comment on above: Performed By: #### F T3, TSH, CMP #### [facility] [address] [place] [address] Dr. Ayo Martinez Protein [Mass/Vol] 7.5 g/dL Normal 6.1-8.2 [facility] Comment on above: Performed By: #### F T3, TSH, CMP #### [facility] [address] [place] [address] Dr. Ayo Martinez Sodium [Moles/Vol] 139 mmol/L Normal 137-145 [facility] Comment on above: Performed By: #### F T3, TSH, CMP #### [facility] [address] [place] [address] Dr. Ayo Martinez Urea nitrogen [Mass/Vol] 10.0 mg/dL Normal 7.0-18.0 [facility] Comment on above: Performed By: #### F T3, TSH, CMP #### [facility] [address] [address] [address] Ayo Martinez Urea nitrogen/Creatini ne [Mass ratio] 12.7 mg/mg Normal [facility] Comment on above: Performed By: #### F T3, TSH, CMP #### [facility] [address] [address] [address] Ayo Martinez TSHon 07-25-2021 TSH 2.067 uIU/mL Normal 0.470-4.680 [facility] Comment on above: Performed By: #### F T3, TSH, CMP #### [facility] [address] [address] [address] Ayo Martinez TSH RANGE SEE BELOW Normal [facility] Comment on above: Result Comment: <0.3 4 UIU/ml HYPERTHYROID 0.34-5.60 UIU/ml EUTHYROID >5.60 UIU/ml HYPOTHYROID Performed By: #### F T3, TSH, CMP #### [facility] [address] [address] [address] Ayo Martinez Vital Signs Date Time Vital Sign Value Performing Clinician Facility 03-15-2023 11:30-0500 Body height 154.94 cm Laila Carmona Other [employer] Other 03-15-2023 11:30-0500 Body mass index (BMI) [Ratio] 35.33 kg/m2 Laila Carmona Other [employer] Other 03-15-2023 11:30-0500 Body temperature 98.1 [degF] Laila Carmona Other [employer] Other 03-15-2023 11:30-0500 Body weight 84.82 kg Laila Carmona Other [employer] Other 03-15-2023 11:30-0500 Respiratory rate 20 /min Laila Carmona Other [employer] Other 03-15-2023 11:30-0500 SaO2% (BldA) [Mass fraction] 98 % Laila Carmona Other [facility] Other 08-18-2022 13:50-0400 Body height 154.94 cm Joycelyn Nash Other [employer] Other 08-18-2022 13:50-0400 Body mass index (BMI) [Ratio] 35.9 kg/m2 Joycelyn Nash Other [facility] Other 08-18-2022 13:50-0400 Body temperature 98.4 [degF] Joycelyn Nash Other [facility] Other 08-18-2022 13:50-0400 Body weight 86.18 kg Joycelyn Nash Other [facility] Other 08-18-2022 13:50-0400 Diastolic blood pressure 68 mm[Hg] Joycelyn Nash Other [facility] Other 08-18-2022 13:50-0400 Respiratory rate 20 /min Joycelyn Nash Other [employer] Other 08-18-2022 13:50-0400 SaO2% (BldA) [Mass fraction] 100 % Joycelyn Nash Other [employer] Other 08-18-2022 13:50-0400 Systolic blood pressure 108 mm[Hg] Joycelyn Nash Other [employer] Other Encounters Encounter Date Encounter Type Care Provider Facility Start: 03-15-2023 End: 03-15-2023 ambulatory Laila Carmona Other [employer] Other Start: 03-15-2023 Office outpatient vi sit 15 minutes Laila Kristine [facility] Start: 03-14-2023 End: 03-15-2023 ambulatory CONSTRUCTION PROJECT ADMINISTRATOR-C Leatha Santoyo Facility:[facility] Start: 03-14-2023 End: 03-14-2023 Off-Site Leatha Santoyo [facility] Start: 02-17-2023 ambulatory CONSTRUCTION PROJECT ADMINISTRATOR-C Leatha Santoyo Facility:[facility] Start: 02-17-2023 ambulatory CONSTRUCTION PROJECT ADMINISTRATOR-C Leatha Santoyo Facility:[facility] Start: 02-11-2023 End: 02-12-2023 ambulatory CONSTRUCTION PROJECT ADMINISTRATOR Brigida L Veronica Facility[facility] Start: 08-18-2022 Office outpatient vi sit 15 minutes Joycelyn Nash [facility] Start: 08-18-2022 End: 08-18-2022 ambulatory MD Keerthi William Work Phone: [employer] Other Start: 08-18-2022 End: 08-18-2022 Patient encounter procedure MD Keerthi William Work Phone: [facility] Work Phone: Start: 04-30-2022 End: 05-01-[address] DOCTOR OWEN Facility:[facility] Start: 07-25-2021 End: 07-26-[address] KEERTHI WILLIAM Facility:[facility] Procedures Date Procedure Procedure Detail Performing Clinician Start: 08-18-2022 Plain X-ray of right hand MD Keerthi William Work Phone: Payers Date Payer Category Payer Private Health Insurance [id number] 2022 Self-pay [id number] 1985 Unknown [id number] 1983 Unknown [id number] 1983 Unknown [id number] [id number] 1983 Unknown [id number] [id number] 1961 Unknown [id number] Unknown [id number] Social History Date Type Detail Facility Unknown if ever smoked [employer] Other [facility]igned At [facility] Start: 10-19-2020 End: 02-11-2023 Tobacco smoking status NHIS Never smoked tobacco (finding) [facility] Start: 1985 Sex Assigned At Female F [facility] Tobacco smoking status Never [facility] Functional Status Date Assessment Result Facility 03-14-2023 Functional Status Symptomatic Af ter Exposure to Contagion Telehealth Patient [facility] Evaluation note 03-15-2023 Note Date & Type Note Facility 03-15-2023 Evaluation note Encounter Date Diagnosis Assessment Notes Feb, Contact with and (suspected) exposure to covid-19 (ICD-10 - Z20.822) Feb, COVID-19 (ICD-10 - U07.1) Discharge Instructions for COVID-19 (Suspected or Confirmed ) material was printed Drink plenty fluids, get plenty of rest. Take Tylenol or Motrin for aches pains or fevers. You must quarantine for 5 days after the onset of your symptoms of COVID. Follow-up with your family physician if no improvement in 2 to 3 days [facility] Other Hospital Discharge instructions 03-14-2023 Note Date & Type Note Facility 03-14-2023 Hospital Discharge instructions Patient Education 03/14/2023 11:44:48 Cough, Adult Cough, Adult Coughing is a reflex that clears your throat and your airways (respiratory system). Coughing helps to heal and protect your lungs. It is normal to cough occasionally, but a cough that happens with other symptoms or lasts a long time may be a sign of a condition that needs treatment. An acute cough may only last 2 3 weeks, while a chronic cough may last 8 or more weeks. Coughing is commonly caused by: Infection of the respiratory systemby viruses or bacteria. Breathing in substances that irritate your lungs. Allergies. Asthma. Mucus that runs down the back of your throat (postnasal drip). Smoking. Acid backing up from the stomach into the esophagus (gastroesophageal reflux). Certain medicines. Chronic lung problems. Other medical conditions such as heart failure or a blood clot in the lung (pulmonary embolism). Follow these instructions at home: Medicines Take bqha-hrl-lhjcitz and prescription medicines only as told by your health care provider. Talk with your health care provider before you take a cough suppressant medicine. Lifestyle Avoid cigarette smoke. Do not use any products that contain nicotine or tobacco, such as cigarettes, e-cigarettes, and chewing tobacco. If you need help quitting, ask your health care provider. Drink enough fluid to keep your urine pale yellow. Avoid caffeine. Do not drink alcohol if your health care provider tells you not to drink. General instructions Pay close attention to changes in your cough. Tell your health care provider about them. Always cover your mouth when you cough. Avoid things that make you cough, such as perfume, candles, cleaning products, or campfire or tobacco smoke. If the air is dry, use a cool mist vaporizer or humidifier in your bedroom or your home to help loosen secretions. If your cough is worse at night, try to sleep in a semi-upright position. Rest as needed. Keep all follow-up visits as told by your health care provider. This is important. Contact a health care provider if you: Have new symptoms. Cough up pus. Have a cough that does not get better after 2 3 weeks or gets worse. Cannot control your cough with cough suppressant medicines and you are losing sleep. Have pain that gets worse or pain that is not helped with medicine. Have a fever. Have unexplained weight loss. Have night sweats. Get help right away if: You cough up blood. You have difficulty breathing. Your heartbeat is very fast. These symptoms may represent a serious problem that is an emergency. Do not wait to see if the symptoms will go away. Get medical help right away. Call your local emergency services (911 in the [place] Do not drive yourself to the hospital. Summary Coughing is a reflex that clears your throat and your airways. It is normal to cough occasionally, but a cough that happens with other symptoms or lasts a long time may be a sign of a condition that needs treatment. Take fejw-lgw-eolipbx and prescription medicines only as told by your health care provider. Always cover your mouth when you cough. Contact a health care provider if you have new symptoms or a cough that does not get better after 2 3 weeks or gets worse. This information is not intended to replace advice given to you by your health care provider. Make sure you discuss any questions you have with your health care provider. Document Revised: 04/26/2019 Document Reviewed: 04/26/2019 [employer] Patient Education 2022 [employer]. 03/14/2023 11:44:46 Diarrhea, Adult Diarrhea, Adult Diarrhea is frequent loose and watery bowel movements. Diarrhea can make you feel weak and cause you to become dehydrated. Dehydration can make you tired and thirsty, cause you to have a dry mouth, and decrease how often you urinate. Diarrhea typically lasts 2 3 days. However, it can last longer if it is a sign of something more serious. It is important to treat your diarrhea as told by your health care provider. Follow these instructions at home: Eating and drinking Follow these recommendations as told by your health care provider: Take an oral rehydration solution (ORS). This is an wmop-qdj-smjgwtj medicine that helps return your body to its normal balance of nutrients and water. It is found at pharmacies and retail stores. Drink plenty of fluids, such as water, ice chips, diluted fruit juice, and low-calorie sports drinks. You can drink milk also, if desired. Avoid drinking fluids that contain a lot of sugar or caffeine, such as energy drinks, sports drinks, and soda. Eat bland, xdpi-ua-sspmdk foods in small amounts as you are able. These foods include bananas, applesauce, rice, lean meats, toast, and crackers. Avoid alcohol. Avoid spicy or fatty foods. Medicines Take kcwq-hrd-jgzkwmq and prescription medicines only as told by your health care provider. If you were prescribed an antibiotic medicine, take it as told by your health care provider. Do not stop using the antibiotic even if you start to feel better. General instructions Wash your hands often using soap and water. If soap and water are not available, use a hand family development specialist. Others in the household should wash their hands as well. Hands should be washed: ?After using the toilet or changing a diaper. ?Before preparing, cooking, or serving food. ?While caring for a sick person or while visiting someone in a hospital. Drink enough fluid to keep your urine pale yellow. Rest at home while you recover. Watch your condition for any changes. Take a warm bath to relieve any burning or pain from frequent diarrhea episodes. Keep all follow-up visits as told by your health care provider. This is important. Contact a health care provider if: You have a fever. Your diarrhea gets worse. You have new symptoms. You cannot keep fluids down. You feel light-headed or dizzy. You have a headache. You have muscle cramps. Get help right away if: You have chest pain. You feel extremely weak or you faint. You have bloody or black stools or stools that look like tar. You have severe pain, cramping, or bloating in your abdomen. You have trouble breathing or you are breathing very quickly. Your heart is beating very quickly. Your skin feels cold and clammy. You feel confused. You have signs of dehydration, such as: ?Dark urine, very little urine, or no urine. ?Cracked lips. ?Dry mouth. ?Sunken eyes. ?Sleepiness. ?Weakness. Summary Diarrhea is frequent loose and sometimes watery bowel movements. Diarrhea can make you feel weak and cause you to become dehydrated. Drink enough fluids to keep your urine pale yellow. Make sure that you wash your hands after using the toilet. If soap and water are not available, use hand family development specialist. Contact a health care provider if your diarrhea gets worse or you have new symptoms. Get help right away if you have signs of dehydration. This information is not intended to replace advice given to you by your health care provider. Make sure you discuss any questions you have with your health care provider. Document Revised: 10/17/2021 Document Reviewed: 10/17/2021 [employer] Patient Education 2022 [employer]. 03/14/2023 11:44:44 COVID-19 COVID-19 COVID-19, or coronavirus disease 2019, is an infection that is caused by a new (novel) coronavirus called SARS-CoV-2. COVID-19 can cause many symptoms. In some people, the virus may not cause any symptoms. In others, it may cause mild or severe symptoms. Some people with severe infection develop severe disease. What are the causes? This illness is caused by a virus. The virus may be in the air as tiny specks of fluid (aerosols) or droplets, or it may be on surfaces. You may catch the virus by: Breathing in droplets from an infected person. Droplets can be spread by a person breathing, speaking, singing, coughing, or sneezing. Touching something, like a table or a doorknob, that has virus on it (is contaminated) and then touching your mouth, nose, or eyes. What increases the risk? Risk for infection: You are more likely to get infected with the COVID-19 virus if: You are within 6 ft (1.8 m) of a person with COVID-19 for 15 minutes or longer. You are providing care for a person who is infected with COVID-19. You are in close personal contact with other people. Close personal contact includes hugging, kissing, or sharing eating or drinking utensils. Risk for serious illness caused by COVID-19: You are more likely to get seriously ill from the COVID-19 virus if: You have cancer. You have a long-term (chronic) disease, such as: ?Chronic lung disease. This includes pulmonary embolism, chronic obstructive pulmonary disease, and cystic fibrosis. ?Long-term disease that lowers your body's ability to fight infection (immunocompromise). ?Serious cardiac conditions, such as heart failure, coronary artery disease, or cardiomyopathy. ?Diabetes. ?Chronic kidney disease. ?Liver diseases. These include cirrhosis, nonalcoholic fatty liver disease, alcoholic liver disease, or autoimmune hepatitis. You have obesity. You are or were recently . You have sickle cell disease. What are the signs or symptoms? Symptoms of this condition can range from mild to severe. Symptoms may appear any time from 2 to 14 days after being exposed to the virus. They include: Fever or chills. Shortness of breath or trouble breathing. Feeling tired or very tired. Headaches, body aches, or muscle aches. Runny or stuffy nose, sneezing, coughing, or sore throat. New loss of taste or smell. This is rare. Some people may also have stomach problems, such as nausea, vomiting, or diarrhea. Other people may not have any symptoms of COVID-19. How is this diagnosed? This condition may be diagnosed by testing samples to check for the COVID-19 virus. The most common tests are the PCR test and the antigen test. Tests may be done in the lab or at home. They include: Using a swab to take a sample of fluid from the back of your nose and throat (nasopharyngeal fluid), from your nose, or from your throat. Testing a sample of saliva from your mouth. Testing a sample of coughed-up mucus from your lungs (sputum). How is this treated? Treatment for COVID-19 infection depends on the severity of the condition. Mild symptoms can be managed at home with rest, fluids, and uvca-vij-pdzjwyp medicines. Serious symptoms may be treated in a hospital intensive care unit (ICU). Treatment in the ICU may include: ?Supplemental oxygen. Extra oxygen is given through a tube in the nose, a face mask, or a aguila. ?Medicines. These may include: ?Antivirals, such as monoclonal antibodies. These help your body fight off certain viruses that can cause disease. ?Anti-inflammatories, such as corticosteroids. These reduce inflammation and suppress the immune system. ?Antithrombotics. These prevent or treat blood clots, if they develop. ?Convalescent plasma. This helps boost your immune system, if you have an underlying immunosuppressive condition or are getting immunosuppressive treatments. ?Prone positioning. This means you will lie on your stomach. This helps oxygen to get into your lungs. ?Infection control measures. If you are at risk for more serious illness caused by COVID-19, your health care provider may prescribe two long-acting monoclonal antibodies, given together every 6 months. How is this prevented? To protect yourself: Use preventive medicine (pre-exposure prophylaxis). You may get pre-exposure prophylaxis if you have moderate or severe immunocompromise. Get vaccinated. Anyone 6 months old or older who meets guidelines can get a COVID-19 vaccine or vaccine series. This includes people who are or making breast milk (lactating). Get an added dose of COVID-19 vaccine after your first vaccine or vaccine series if you have moderate to severe immunocompromise. This applies if you have had a solid organ transplant or have been diagnosed with an immunocompromising condition. ?You should get the added dose 4 weeks after you got the first COVID-19 vaccine or vaccine series. ?If you get an mRNA vaccine, you will need a 3-dose primary series. ?If you get the J&J/Smitha vaccine, you will need a 2-dose primary series, with the second dose being an mRNA vaccine. Talk to your health care provider about getting experimental monoclonal antibodies. This treatment is approved under emergency use authorization to prevent severe illness before or after being exposed to the COVID-19 virus. You may be given monoclonal antibodies if: ?You have moderate or severe immunocompromise. This includes treatments that lower your immune response. People with immunocompromise may not develop protection against COVID-19 when they are vaccinated. ?You cannot be vaccinated. You may not get a vaccine if you have a severe allergic reaction to the vaccine or its components. ?You are not fully vaccinated. ?You are in a facility where COVID-19 is present and: ?Are in close contact with a person who is infected with the COVID-19 virus. ?Are at high risk of being exposed to the COVID-19 virus. ?You are at risk of illness from new variants of the COVID-19 virus. To protect others: If you have symptoms of COVID-19, take steps to prevent the virus from spreading to others. Stay home. Leave your house only to get medical care. Do not use public transit, if possible. Do not travel while you are sick. Wash your hands often with soap and water for at least 20 seconds. If soap and water are not available, use alcohol-based hand family development specialist. Make sure that all people in your household wash their hands well and often. Cough or sneeze into a tissue or your sleeve or elbow. Do not cough or sneeze into your hand or into the air. Where to find more information Centers for Disease Control and Prevention: www.cdc.gov/coronavirus World Health Organization: www.who.int/health-topics/coronavi wilman Get help right away if: You have trouble breathing. You have pain or pressure in your chest. You are confused. You have bluish lips and fingernails. You have trouble waking from sleep. You have symptoms that get worse. These symptoms may be an emergency. Get help right away. Call 911. Do not wait to see if the symptoms will go away. Do not drive yourself to the hospital. Summary COVID-19 is an infection that is caused by a new coronavirus. Sometimes, there are no symptoms. Other times, symptoms range from mild to severe. Some people with a severe COVID-19 infection develop severe disease. The virus that causes COVID-19 can spread from person to person through droplets or aerosols from breathing, speaking, singing, coughing, or sneezing. Mild symptoms of COVID-19 can be managed at home with rest, fluids, and sdma-jgb-otpwpfc medicines. This information is not intended to replace advice given to you by your health care provider. Make sure you discuss any questions you have with your health care provider. Document Revised: 03/28/2022 Document Reviewed: 03/28/2022 [employer] Patient Education 2022 [employer]. 03/14/2023 11:44:44 Upper Respiratory Infection, Adult, Tyqn-vr-Rddn Upper Respiratory Infection, Adult An upper respiratory infection (URI) affects the nose, throat, and upper airways that lead to the lungs. The most common type of URI is often called the common cold. URIs usually get better on their own, without medical treatment. What are the causes? A URI is caused by a germ (virus). You may catch these germs by: Breathing in droplets from an infected person's cough or sneeze. Touching something that has the germ on it (is contaminated) and then touching your mouth, nose, or eyes. What increases the risk? You are more likely to get a URI if: You are very young or very old. You have close contact with others, such as at work, school, or a health care facility. You smoke. You have long-term (chronic) heart or lung disease. You have a weakened disease-fighting system (immune system). You have nasal allergies or asthma. You have a lot of stress. You have poor nutrition. What are the signs or symptoms? Runny or stuffy (congested) nose. Cough. Sneezing. Sore throat. Headache. Feeling tired (fatigue). Fever. Not wanting to eat as much as usual. Pain in your forehead, behind your eyes, and over your cheekbones (sinus pain). Muscle aches. Redness or irritation of the eyes. Pressure in the ears or face. How is this treated? URIs usually get better on their own within 7 10 days. Medicines cannot cure URIs, but your doctor may recommend certain medicines to help relieve symptoms, such as: Xypt-jgz-qpmshhu cold medicines. Medicines to reduce coughing (cough suppressants). Coughing is a type of defense against infection that helps to clear the nose, throat, windpipe, and lungs (respiratory system). Take these medicines only as told by your doctor. Medicines to lower your fever. Follow these instructions at home: Activity Rest as needed. If you have a fever, stay home from work or school until your fever is gone, or until your doctor says you may return to work or school. ?You should stay home until you cannot spread the infection anymore (you are not contagious). ?Your doctor may have you wear a face mask so you have less risk of spreading the infection. Relieving symptoms Rinse your mouth often with salt water. To make salt water, dissolve 1 tsp (3 6 g) of salt in 1 cup (237 mL) of warm water. Use a cool-mist humidifier to add moisture to the air. This can help you breathe more easily. Eating and drinking Drink enough fluid to keep your pee (urine) pale yellow. Eat soups and other clear broths. General instructions Take gqdr-jwj-bgcydjn and prescription medicines only as told by your doctor. Do not smoke or use any products that contain nicotine or tobacco. If you need help quitting, ask your doctor. Avoid being where people are smoking (avoid secondhand smoke). Stay up to date on all your shots (immunizations), and get the flu shot every year. Keep all follow-up visits. How to prevent the spread of infection to others Wash your hands with soap and water for at least 20 seconds. If you cannot use soap and water, use hand family development specialist. Avoid touching your mouth, face, eyes, or nose. Cough or sneeze into a tissue or your sleeve or elbow. Do not cough or sneeze into your hand or into the air. Contact a doctor if: You are getting worse, not better. You have any of these: ?A fever or chills. ?Brown or red mucus in your nose. ?Yellow or brown fluid (discharge)coming from your nose. ?Pain in your face, especially when you bend forward. ?Swollen neck glands. ?Pain when you swallow. ?White areas in the back of your throat. Get help right away if: You have shortness of breath that gets worse. You have very bad or constant: ?Headache. ?Ear pain. ?Pain in your forehead, behind your eyes, and over your cheekbones (sinus pain). ?Chest pain. You have long-lasting (chronic) lung disease along with any of these: ?Making high-pitched whistling sounds when you breathe, most often when you breathe out (wheezing). ?Long-lasting cough (more than 14 days). ?Coughing up blood. ?A change in your usual mucus. You have a stiff neck. You have changes in your: ?Vision. ?Hearing. ?Thinking. ?Mood. These symptoms may be an emergency. Get help right away. Call 911. Do not wait to see if the symptoms will go away. Do not drive yourself to the hospital. Summary An upper respiratory infection (URI) is caused by a germ (virus). The most common type of URI is often called the common cold. URIs usually get better within 7 10 days. Take ucgi-lay-drbxwiq and prescription medicines only as told by your doctor. This information is not intended to replace advice given to you by your health care provider. Make sure you discuss any questions you have with your health care provider. Document Revised: 11/07/2021 Document Reviewed: 11/07/2021 [employer] Patient Education 2022 [employer] Follow Up Care 03/14/2023 10:03:40 With:Leatha Coyne Address: [address] [place] [address], [place] [address]- When: only if needed [facility] Primary Care Evaluation note 08-18-2022 Note Date & Type Note Facility 08-18-2022 Evaluation note Encounter Date Diagnosis Assessment Notes Jul, Injury (ICD-10 - T14.90XA) Jul, Contusion of right hand, initial encounter (ICD-10 - S60.221A) XR images and final report reviewed, no acute bony abnormalities. Discussed diagnosis with patient. Tamir wrap is provided today in office. Encouraged RICE therapy discussed- rest extremity, avoid excessive or strenuous activity, complete activity as tolerated; ice area for 15-20 minutes at a time multiple times a day, ensure thin cloth barrier between skin and ice; Splint/TAMIR wrap area; keep extremity elevated. Advised patient to use OTC NSAIDs/Tylenol as directed as needed for discomfort. Instructed patient to follow up with PCP or ortho if sx do not improve in the next 5-7 days. Advised patient to have follow-up with neurology about seizures tomorrow. Immediate eval by ER for warning s/sx as discussed. Patient verbalizes understanding and is agreeable to treatment plan. 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 Hospitalization History difficult pregna ncy and dehydration Hospitalization History seizures October [employer] Other Evaluation + Plan note Note Date & Type Note Facility Evaluation + Plan note No data available for this section [facility] Evaluation note Note Date & Type Note Facility Evaluation note No assessment information availa [facility] Work Phone: Progress note Note Date & Type Note Facility Progress note No data available for this section [facility] Care Summary Purpose Family History No Family History Records Found Relationship Condition Age at Onset Recorded Date/T waldo Not Specified Hypertension Unknown Advance Directives No Advanced Directives Records Found Advance Directive Response Recorded Date/ Time Advance Directives No September 11 9 4:49pm Additional Source Comments INFORMATION SOURCE (unrecogn ized section and content) DATE CREATED AUTHOR 05/02/2022 [facility] DATE CREATED AUTHOR AUTHOR'S ORGANIZ ATION 08/28/2022 [facility] DATE CREATED AUTHOR AUTHOR'S ORGANIZ ATION 04/26/2023 [facility] REASON FOR VISIT (unrecogniz ed section and content) RIGHT HAND PAINCOVID TEST, C OUGH, SORE THROAT, BODY ACHES, WORK NEEDS A TEST Care Teams (unrecognized sec tion and content) Team Status: Active Member Role Status Dates Keerthi William MD Primary Care Provider Active Team Status: Inactive Member Role Status Dates Keerthi William MD Primary Care Provider Active Joycelyn Nash APRN Attending Provider Active Goals (unrecognized section and content) Goals may be documented in a n alternate section FOR RECORDS PERTAINING TO PATIENTS WHO ARE OR HAVE BEEN ENROLLED IN A CHEMICAL DEPENDENCY/SUBSTANCEABUSE PROGRAM, SOME INFORMATION MAY BE OMITTED. This clinical summary was aggregated from multiple sources. Caution should be exercised in using it in the provision of clinical care. This summary normalizes information from multiple sources, and as a consequence, information in this document may materially change the coding, format and clinical context of patient data. In addition, data may be omitted in some cases. CLINICAL DECISIONS SHOULD BE BASED ON THE PRIMARY CLINICAL RECORDS. [facility] [employer] [facility]. provides no warranty or guarantee of the accuracy or completeness of information in this document.
== END 2023-10-03 11:28 | disposition home or self-care (01) ==
LOC: RAD 11:31
PROVIDERS: PCP Family Medicine
DX: R30.0 Dysuria (principal); N20.0 Calculus of kidney; N28.1 Cyst of kidney, acquired
CPT/HCPCS: 76775

== ENCOUNTER 2023-11-07 09:32 | Emergency (ER) | payer BC, SELFPAY ==
[2023-11-07] VITALS (28 sets, daily range): BP systolic 110–148; BP diastolic 58–103; PULSE 59–120; O2SAT 96–100; BMI 30.8
--- NOTE | 2023-11-07 10:13 | CT_ITS ---
[address] [address] Patient Name: LIANA JASON MRN: [id number] date: 1985 Sex: F Assigned Patient Location: ER Current Patient Location: ER Accession/Order Number: [id number] Exam Date: 11/07/2023 10:33 Report Date: 11/07/2023 12:06 At the request of: JULIENNE RICE Procedure: CT abdomen pelvis wo con EXAMINATION: CT abdomen pelvis wo con HISTORY: stone ; low back pain on right side COMPARISON: CT abdomen pelvis 10/26/2016 TECHNIQUE: Axial, Coronal, and Sagittal images were obtained without and/or with IV contrast as indicated by examination type. Dose reduction techniques were achieved by using automated exposure control and/or adjustment of mA and/or kV according to patient size and/or use of iterative reconstruction technique. FINDINGS: LUNG BASES: No visible pulmonary or pleural disease. LIVER: No enlargement, atrophy, suspicious density, or significant focal lesion. BILIARY: No dilatation or calcification. PANCREAS: No lesion, fluid collection, or abnormal duct dilatation. SPLEEN: No enlargement or focal lesion. ADRENALS: No mass or enlargement. KIDNEYS: Stable small left renal cyst. No mass, obstruction, or calcification. BOWEL/MESENTERY: Dense oval structure within the cecum and 2 smaller structures within distal sigmoid colon suspected to represent mineral/medication tablets. No visible mass, obstruction, or bowel wall thickening. AORTA/VASCULAR: No aneurysm or dissection. RETROPERITONEUM: No mass or adenopathy. LYMPH NODES: No adenopathy. URINARY BLADDER: No visible focal wall thickening, lesion, or calculus. PELVIC ORGANS: No visible mass. Pelvic organs appropriate for patient age. ABDOMINAL WALL: No mass or hernia. BONES: No bony lesion or fracture. OTHER: Negative. CT/CT abdomen pelvis wo con IMPRESSION: 1. No urinary tract calculi or obstructive uropathy. 2. No acute or suspicious findings to account for patient's symptoms. Electronically authenticated by: TITA CONNOLLY Date: 11/07/2023 12:06
[2023-11-07 10:22] LABS: Basophils Absolute Auto 0.1 10^3/uL (0.0-0.1); Eosinophils Absolute Auto 0.1 10^3/uL (0.0-0.7); Eosinophils Percent Auto 1.4 % (0.9-7.0); Hematocrit 41.9 % (36.0-48.0); Hemoglobin 13.2 g/dL (12.0-16.0); Immature Granulocytes Abs Auto 0.02 10^3/uL (0.00-0.03); Immature Granulocytes Pct Auto 0.3 % (0.0-0.5); Lymphocytes Absolute Auto 2.4 10^3/uL (1.2-3.8); Lymphocytes Percent Auto 33.4 % (20.5-60.0); Mean Corpuscular HGB Conc 31.5 g/dL (29.9-35.2); Mean Corpuscular Hemoglobin 28.6 pg (26.7-34.0); Mean Corpuscular Volume 90.9 fL (81.0-99.0); Mean Platelet Volume 11.8 fL (9.5-13.5); Monocytes Absolute Auto 0.5 10^3/uL (0.3-0.8); Neutrophils Absolute Auto 4.1 10^3/uL (1.4-6.5); Neutrophils Percent Auto 56.9 % (43.0-75.0); Platelet Count 235 10^3/uL (150-450); Red Blood Count 4.61 10^6/uL (4.20-5.40); Red Cell Distribution Width 13.2 % (11.0-15.0); White Blood Count 7.3 10^3/uL (4.0-11.0)
--- NOTE | 2023-11-07 10:31 | ED.GENADUL1 ---
HPI HPI - General Adult General Chief complaint: Abdominal Pain Stated complaint: ABDOMINAL PAIN/ SEIZURE Time Seen by Provider: 11/07/23 10:11 Source: patient Mode of arrival: Wheelchair History of Present Illness HPI narrative: Pt is a 38yo female who has had 7-8 days of left lower back pain and left flank pain from possible kidney stone. Pt has had 3-4 seizures today, pt takes Keppra and also topamax. pt has no hx of kidney stone. pt was sent to ER from PCP office for eval. PT had an US of renal bialteal on 10/03/23. Pt was seen to have a 2mm renal nonobst stone. Pt was in the PCP office today, and sent to the ER. US report was reviewed, pt has a 2mm nonobstructin right nephrolith. 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 pt has a history of seizure, pt sees Dr Richard Felix at [place], pt takes Topamax and Keppra. Pt had Keppra levels checked 1 year ago. no head injury, no CP or SOB. REVIEW OF SYSTEMS: Unless otherwise stated in this report the patient's positive and negative responses for review of systems for constitutional, eyes, ENT, cardiovascular, respiratory, gastrointestinal, neurological, , musculoskeletal, and integument systems and related systems to the presenting problem are either stated in the history of present illness or were not pertinent or were negative for the symptoms and/or complaints related to the presenting medical problem vital signs reviewed and patient is not hypoxic. ? General: The patient appears well and in mod apparent distress to pain. Patient is resting uncomfortably on cart. Not toxic, lethargic, or listless. Skin: Warm, dry, no pallor noted. There is no rash noted. Head: Normocephalic, atraumatic Eye: Normal conjunctiva, no drainage, EOMI. PERRL. Ears, Nose, Mouth, and Throat: oral mucosa is moist. Nares patent. Cardiovascular: Regular Rate and Rhythm, no murmurs, gallops, or rubs Respiratory: Patient is in no distress, no accessory muscle use, lungs are clear to auscultation, no wheezing, rales or rhonchi Back: non-tender, moderate CVA tenderness on the right, non on the left to percussion. NO CTLS midline or paracervicl tenderness to palpation. GI: Soft, obese, no LLQ TTP, mild left fland tenderness to palpation, no masses appreciated. No rebound, guarding, or rigidity noted. no peritoneal signs. Musculoskeletal: The patient has full range of motion of all extremities and joints with no difficulty. Patient has no motor, no sensory deficits. Neurological: A&O x4, normal speech, no focal neurological deficits. Psychiatric: Cooperative; pt had an episode in the triage that was possible seizure vs psueoseizure. Related Data Home Medications ?Medication ?Instructions ?Recorded ?Confirmed levetiracetam 1,000 mg tablet 1,500 mg PO BID 04/07/23 11/07/23 tamsulosin 0.4 mg capsule 0.4 mg PO Q24H 11/07/23 11/07/23 topiramate 100 mg tablet 100 mg PO Q12H 11/07/23 11/07/23 trazodone 50 mg tablet 50 mg PO DAILY 11/07/23 11/07/23 Previous Rx's ?Medication ?Instructions ?Recorded ibuprofen 800 mg tablet 800 mg PO Q8H PRN pain #20 tabs 04/07/23 Allergies Allergy/AdvReac Type Severity Reaction Status Date / Time No Known Drug Allergies Allergy Verified 04/07/23 10:53 Opioid HPI Opioid Management Most Recent Opioid Data: Last MAR Pain Assessment 11/07/23 11:46 PFSH PFSH Social History Smoking status: Never smoker Exam Constitutional Vital Signs, click to edit/add: Last Vital Signs Pulse 59 L 11/07/23 12:50 Resp 16 11/07/23 12:50 BP 110/73 11/07/23 12:45 Pulse Ox 98 11/07/23 12:50 O2 Del Method Room Air 11/07/23 09:41 Course Vital Signs Vital signs: Vital Signs Pulse Rate 104 H 11/07/23 09:41 Respiratory Rate 20 11/07/23 09:41 Blood Pressure 137/102 H 11/07/23 09:41 Pulse Oximetry 100 11/07/23 09:41 Oxygen Delivery Method Room Air 11/07/23 09:41 Pulse Rate 59 L 11/07/23 12:50 Respiratory Rate 16 11/07/23 12:50 Blood Pressure 110/73 11/07/23 12:45 Pulse Oximetry 98 07/19/24 12:50 Oxygen Delivery Method Room Air 11/07/23 09:41 Medical Decision Making MDM Narrative Medical decision making narrative: CT abd/pelvis shows no acute findings. labs show no other specific findings, CO2 18. pt was given fluids pt follow up with PCP and neuro Dr Felix as needed no questions at discharge pt was given work note questions of seizure vs psuedoseizure Lab Data Lab results reviewed: Yes I reviewed the patient's lab results Lab results narrative: CO2 is low, no elevated WBC Labs: Lab Results 11/07/23 Range/Units 09:58 WBC 7.3 (4.0-11.0) 10^3/uL RBC 4.61 (4.20-5.40) 10^6/uL Hgb 13.2 (12.0-16.0) g/dL Hct 41.9 (36.0-48.0) % MCV 90.9 (81.0-99.0) fL MCH 28.6 (26.7-34.0) pg MCHC 31.5 (29.9-35.2) g/dL RDW 13.2 (11.0-15.0) % Plt Count 235 (150-450) 10^3/uL MPV 11.8 (9.5-13.5) fL Neut % (Auto) 56.9 (43.0-75.0) % Lymph % (Auto) 33.4 (20.5-60.0) % Glynn % (Auto) 7.0 (1.7-12.0) % Eos % (Auto) 1.4 (0.9-7.0) % Baso % (Auto) 1.0 (0.2-2.0) % Neut # (Auto) 4.1 (1.4-6.5) 10^3/uL Lymph # (Auto) 2.4 (1.2-3.8) 10^3/uL Glynn # (Auto) 0.5 (0.3-0.8) 10^3/uL Eos # (Auto) 0.1 (0.0-0.7) 10^3/uL Baso # (Auto) 0.1 (0.0-0.1) 10^3/uL Abs Immat Gran (auto) 0.02 (0.00-0.03) 10^3/uL Imm/Tot Granulo (auto) 0.3 (0.0-0.5) % Sodium 139 (136-145) mmol/L Potassium 3.9 (3.5-5.1) mmol/L Chloride 109 H (98-107) mmol/L Carbon Dioxide 18.6 L (21.0-32.0) mmol/L Anion Gap 15.3 BUN 9.0 (7.0-18.0) mg/dL Creatinine 0.95 (0.55-1.02) mg/dL Est GFR ( Amer) >60 (>=60) Est GFR (Non-Af Amer) >60 (>=60) BUN/Creatinine Ratio 9.5 Glucose 86 (74-106) mg/dL Lactate 2.2 H* (0.4-2.0) mmol/L Calcium 9.0 (8.5-10.1) mg/dL Total Bilirubin 0.5 (0.2-1.0) mg/dL AST 17 (15-37) U/L ALT 19 (14-59) U/L Alkaline Phosphatase 105 (46-116) U/L Troponin I High Sens <4.0 L (4.0-51.3) pg/mL Total Protein 8.4 H (6.4-8.2) g/dL Albumin 4.2 (3.4-5.0) g/dL Globulin 4.2 g/dL Albumin/Globulin Ratio 1.0 Lipase 53.0 (16.0-77.0) U/L ECG Data Attestation: I personally reviewed and interpreted this ECG as follows: (EKG reading. sinus tachy 119. artifact, QTc 199. no STEMI.) Discharge Plan Discharge Stand Alone Forms: Work/School Release, Portal Instructions Chief Complaint: Abdominal Pain Clinical Impression: Seizure, Back pain, Renal colic on right side Patient Disposition: Home, Self-Care Time of Disposition Decision: 13:32 Condition: Fair Prescriptions / Home Meds: No Action levetiracetam 1,000 mg tablet 1,500 mg PO BID ibuprofen 800 mg tablet 800 mg PO Q8H PRN (Reason: pain) Qty: 20 0RF trazodone 50 mg tablet 50 mg PO DAILY tamsulosin 0.4 mg capsule 0.4 mg PO Q24H topiramate 100 mg tablet 100 mg PO Q12H Print Language: Guinean Instructions: Renal Colic (ED), Recurrent Seizures in Adults (ED), Back Pain (ED) Additional Instructions: Follow up with your PCP and Dr Felix Neurologist Increase fluids Use motrin or tylenol as needed for pain Referrals: STEFANI RUBY [Primary Care Provider] - 1 week
[2023-11-07] MEDS: 0.9 % SODIUM CHLORIDE 1,000 ML 999 ML IV (10:44)
[2023-11-07 10:51] LABS: Alanine Aminotransferase 19 U/L (14-59); Albumin Level 4.2 g/dL (3.4-5.0); Alkaline Phosphatase 105 U/L (46-116); Anion Gap 15.3; Aspartate Amino Transferase 17 U/L (15-37); BUN Creatinine Ratio 9.5; Bilirubin Total 0.5 mg/dL (0.2-1.0); Carbon Dioxide 18.6 mmol/L (21.0-32.0); Chloride 109 mmol/L (98-107); Estimated GFR (African America >60 (>=60); Estimated GFR (Non-African Ame >60 (>=60); Globulin 4.2 g/dL; Glucose 86 mg/dL (74-106); Potassium 3.9 mmol/L (3.5-5.1); Sodium 139 mmol/L (136-145); Total Protein 8.4 g/dL (6.4-8.2); Troponin I High Sensitivity <4.0 pg/mL (4.0-51.3)
[2023-11-07 11:00] LABS: Lactate/Lactic Acid 2.2 mmol/L (0.4-2.0)
[2023-11-07] MEDS: KETOROLAC TROMETHAMINE 30 MG/ML VIAL 15 MG IVP (11:45)
[2023-11-07] MEDS: LEVETIRACETAM 1,000 MG in 0.9 % SODIUM CHLORIDE 100 ML 440 MG IV (11:46)
[2023-11-07] MEDS: MORPHINE SULFATE 4 MG/ML VIAL IV (11:46)
[2023-11-07] MEDS: ONDANSETRON PF 4 MG/2 ML VIAL IV (11:46)
--- NOTE | 2023-11-07 12:55 | ECG_ITS ---
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
== END 2023-11-07 13:54 | disposition home or self-care (01) ==
PROVIDERS: Emergency Provider Emergency Medicine; PCP Family Medicine
DX: N23 Unspecified renal colic (principal); R56.9 Unspecified convulsions; M54.9 Dorsalgia, unspecified
CPT/HCPCS: 36415; 74176; 80053; 83605; 83690; 84484; 85025; 93005; 96365; 96375; 99285; J1885; J1953; J2270; J2405

== ENCOUNTER 2024-08-20 17:21 | Outpatient (REF) | payer OTHER, SELFPAY | END 2024-08-20 17:22 | disposition home or self-care (01) | LOC: LAB 17:21 | PROVIDERS: PCP Family Medicine; Visit Provider Nurse Practitioner | DX: R19.7 Diarrhea, unspecified (principal) | CPT/HCPCS: 87045; 87046; 87427; 87493 ==

== ENCOUNTER 2025-02-20 10:04 | Emergency (ER) | payer OTHER, SELFPAY ==
[2025-02-20 10:07] VITALS: BP 119/83; PULSE 90; TEMP 36.6; O2SAT 99; BMI 36.6
--- OUTSIDE RECORDS SUMMARY | 2025-02-20 10:13 | XMS_ITS | CCD ---
Author Organization [facility] CliniSyok Care Team Providers Care Director Erp Name Role Phone DR KEERTHI WILLIAM Consulting Unavailable WILLIAM, DR KEERTHI Acevedo Attending Unavailable WILLIAM, DR KEERTHI Acevedo Admitting Unavailable WILLIAM, DR KEERTHI Acevedo Primary Care Unavailable MISC, DR ARMAS Admitting Unavailable MISC, DR ARMAS Consulting Unavailable MISC, DR ARMAS Attending Unavailable WILLIAM, DR KEERTHI Acevedo Primary Care Unavailable Joycelyn Nash Unavailable MD Keerthi William Primary Care Provider [phone] SHYAM Nash Attending Provider [phone] Joycelyn Nash Attending Unavailable Joycelyn Nash Admitting Unavailable Keerthi William Primary Care Unavailable VeronicaBrigida lee Primary Care Physician Laila Carmona Unavailable Brigida Martin Admitting Unavailable Veronica, Brigida Padilla Attending Unavailable Veronica, Brigida Padilla Attending Unavailable Veronica, Brigida Padilla Attending Unavailable NYDIA SARGENT Attending Unavailable Leatha Santoyoce Attending Unavailab NYDIA Moser Admitting Unavailable NYDIA SARGENT Attending Unavailable Keerthi William MD Primary Care Provider Kenyon MEJIA, Calderon Unavailable Richard Ferrari DO Unavailable [phone] Brigida Martin MD Unavailable CALDERON PRESCOTT Attending Unavailable CALDERON PRESCOTT Attending Unavailable CALDERON PRESCOTT Attending Unavailable CALDERON PRESCOTT Attending Unavailable KENYON, CALDERON Attending Unavailable CALDERON PRESCOTT Referring Unavailable Veronica, TITLE ONE TEACHER Brigida L Attending Unavailable Veronica, TITLE ONE TEACHER Brigida Padilla Attending Unavailable Veronica, TITLE ONE TEACHER Brigida Padilla Attending Unavailable Veronica, TITLE ONE TEACHER Brigida Padilla Referring Unavailable Madiha Pierce Attending Unavailable Veronica, TITLE ONE TEACHER Brigida L Admitting Unavailable Veronica, TITLE ONE TEACHER Brigida L Attending Unavailable Veronica, TITLE ONE TEACHER Brigida L Attending Unavailable Veronica, TITLE ONE TEACHER Brigida L Attending Unavailable Veronica, TITLE ONE TEACHER Brigida L Attending Unavailable Veronica, Brigida L Attending Unavailable Veronica, Brigida L Admitting Unavailable Veronica, Brigida L Attending Unavailable Veronica, Brigida L Admitting Unavailable Veronica, Brigida L Attending Unavailable Shantelle Geraldine HOWE Attending Provider NON STAFF Primary Care Provider Unavailabl e Allergies Allergy ClassificationReported Allergen(s)Allergy TypeDate of OnsetReaction(s) FacilityNIFEdipine (1 source)NIFEdipine; Translations: [Procardia[facility] ([facility] sources)NIFEdipine; Translations: [Procardia]Drug Bnzdixa39-47-1310 [facility] Repository (20 sources)NIFEdipine; Translations: [nifedipine]Drug Jwsvgtn20-41-2645 Tachycardia (finding)[facility] Medications Current Medications MedicationDrug Class(es)DatesSig (Normalized)Sig (Original)acetaminophen 325 mg / HYDROcodone bitartrate 5 mg oral tablet (1 source)Opioid AgonistStart: 01-03-3830azolsjvuhddhz-hydrocodone 325 mg-5 mg oral tablet 1 tab(s), Oral, q6hr for pain, 30 tab(s), Refill(s) 0, [facility], 154, cm, 10/14/23 10:34:00 EDT, Height/Length Dosing, 85.6, kg, 10/14/23 10:34:00 EDT, Weight Dosing Start Date: 10/14/23 Status: Ordered [id number] 200 actuat albuterol 0.09 mg/actuat metered dose inhaler (14 sources)beta2-Adrenergic AgonistStart: 79-51-4666qadc 2 puff(s) by mouth four times daily as neededalbuterol HFA 90 mcg/act inhaler INHALE 2 PUFFS BY MOUTH FOUR TIMES DAILY NEEDED 03/15/2023 ActiveStart: 78-33-2589dchn 2 puff(s) by inhalation four times daily as neededAlbuterol Sulfate HFA 108 (90 Base) MCG/ACT 2 puffs Inhalation 4 times a day prn Feb, Active benzonatate 100 mg oral capsule (1 source)Non-narcotic AntitussiveStart: 03-14-2023 End: 56-08-8425zaid 1 capsule by mouth three times dailyTessalon 100 mg Cap 100 mg = 1 cap(s), Oral, TID, X 10 day(s), # 30 cap(s), Refills(s) 0, Pharmacy: [facility], 154, cm, 03/14/23 11:26:00 EST, Height/Length Dosing, 86.7, kg, 02/11/23 10:10:00 EDT, Weight Dosing Start Date: 03/14/23 Stop Date: 03/24/23 Status: Orderedibuprofen 800 mg oral tablet (14 sources)Nonsteroidal Anti-inflammatory DrugStart: 16-56-9770xnqh 1 tablet by mouth every eight hoursibuprofen 800 mg Tab 800 mg = 1 tab(s), Oral, q8hr, # 30 tab(s), Refills(s) 0, Pharmacy: [facility], 154, cm, 10/14/23 10:34:00 EDT, Height/Length Dosing, 85.6, kg, 10/14/23 10:34:00 EDT, Weight Dosing Start Date: 10/29/23 Status: Orderedibuprofen 800 MG tablet Take 200 mg by mouth in the morning and 200 mg in the evening and 200 mg before bedtime. ActivelamoTRIgine 25 mg oral tablet (18 sources)Mood Stabilizer, Anti-epileptic AgentStart: 10-06-2024 End: 38-35-1255lzje 2 tablets by mouth twice dailyLamotrigine 25 mg tablet Active 50 MG PO Twice daily 120 30 3 October 19, 2024 11:51am Complies with drug therapyStart: 10-06-2024 End: 08-01-5191Wilkzcejuvq 25 mg tablet Discontinued 25 MG PO October 05, 2024 11:00pm October 06, 2024 11:54amStart: 04-05-2024 End: 95-59-0526wnbq 2 tablets by mouth in the morninglamoTRIgine (LaMICtal) 25 MG tablet Indications: 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 status epilepticus, unspecified epilepsy type (CMS/HCC) , Psychogenic nonepileptic seizure (CMS/HCC) Take 2 tablets (50 mg) by mouth in the morning and 2 tablets (50 mg) before bedtime. 120 tablet 2 05/06/2024 08/04/2024 ActiveStart: 02-02-2024 End: 00-21-3022nndv 2 tablets by mouth in the morninglamoTRIgine (LaMICtal) 25 MG tablet Indications: 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 status epilepticus, unspecified epilepsy type (CMS/HCC) , Psychogenic nonepileptic seizure (CMS/HCC) Take 2 tablets (50 mg) by mouth in the morning and 2 tablets (50 mg) before bedtime. 120 tablet 02/02/2024 03/03/2024ctiveStart: 85-87-4927qomn 2 tablets by mouth once daily in the morning, then take 1 tablet by mouth at bedtime, then take 2 tablets by mouth twice dailylamoTRIgine (LaMICtal) 25 MG tablet Indications: 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 status epilepticus, unspecified epilepsy type (CMS/HCC) , Psychogenic nonepileptic seizure (CMS/HCC) Take 50 mg by mouth daily in the am and 25 mg by mouth at bedtime for 2 weeks then increase to 50 mg by mouth twice daily thereafter. 120 tablet 12/31/2023 ActiveStart: 68-12-9414cwlj 2 tablets by mouth once daily in the morning, then take 1 tablet by mouth at bedtime, then take 2 tablets by mouth twice dailylamoTRIgine (LaMICtal) 25 MG tablet Indications: 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 status epilepticus, unspecified epilepsy type (CMS/HCC) , Psychogenic nonepileptic seizure (CMS/HCC) Take 50 mg by mouth daily in the am and 25 mg by mouth at bedtime for 2 weeks then increase to 50 mg by mouth twice daily thereafter. 120 tablet 12/31/2023 ActiveStart: 11-12-2023 End: 94-88-3428eqhe 1 tablet by mouth once daily, then take 1 tablet by mouth twice dailylamoTRIgine (LaMICtal) 25 MG tablet Indications: 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 status epilepticus, unspecified epilepsy type (CMS/HCC) , Psychogenic nonepileptic seizure (CMS/HCC) Take 25 mg by mouth daily for 2 weeks then increase to 25 mg by mouth twice daily. 60 tablet 1 11/12/2023 12/31/2023 Discontinued (Reorder)levETIRAcetam 1000 mg oral tablet (20 sources)Start: 10-06-2024 End: 33-96-8832Qjginxcjnfqzo 1,000 mg tablet Active 1500 MG PO Twice daily 270 90 2 February 07, 2025 12:46pm Complies with drug therapyStart: 10-06-2024 End: 06-84-4775Ceomdvgnmmebl 1,000 mg tablet Discontinued MG PO October 05, 2024 11:00pm October 06, 2024 11:54amStart: 11-62-7004oogb 1.5 tablets by mouth in the morninglevETIRAcetam (Keppra) 1000 MG tablet Indications: Seizure disorder (CMS/HCC) Take 1.5 tablets (1,500 mg) by mouth in the morning and 1.5 tablets (1,500 mg) before bedtime. 90 tablet 2 02/25/2024 ActiveStart: 64-58-3609fuee 1.5 tablets by mouth in the morninglevETIRAcetam (Keppra) 1000 MG tablet Indications: Seizure disorder (CMS/HCC) Take 1.5 tablets (1,500 mg) by mouth in the morning and 1.5 tablets (1,500 mg) before bedtime. 90 tablet 2 11/17/2023 ActiveStart: 61-86-0334pouaznkbtdspa 1000 mg oral tablet See Instructions, Take 1 and 1/2 tablets BID, Refills(s) 0 Start Date: 02/11/23 Status: OrderedStart: 10-19-2020 End: 39-00-6796zovx 1 tablet by mouth twice dailyLevetiracetam 750 mg tablet Discontinued 750 MG PO Twice daily October 18, 2020 11:00pm October 21, 2020 12:39pmKeppra Activemeclizine hydrochloride 25 mg oral tablet (3 sources)AntiemeticStart: 10-21-2020 End: 36-95-1947evkn 1 tablet by mouth every eight hours as needednitrofurantoin, macrocrystals 25 mg / nitrofurantoin, monohydrate 75 mg oral capsule (1 source)Nitrofuran AntibacterialStart: 10-14-2023 End: 49-84-6857sxuc 1 capsule by mouth twice dailyMacrobid 100 mg Cap 100 mg = 1 cap(s), Oral, BID, X 7 day(s), # 14 cap(s), Refills(s) 0, Pharmacy: [facility], 154, cm, 10/14/23 10:34:00 EDT, Height/Length Dosing, 85.6, kg, 10/13/2409:34:00 EDT, Weight Dosing Start Date: 10/14/23 Stop Date: 10/21/23 Status: Orderedondansetron 4 mg disintegrating oral tablet (13 sources)Serotonin-3 Receptor Antagonisttake 1 tablet by mouth every eight hours as needed for nausea and vomitingondansetron ODT (Zofran-ODT) 4 MG disintegrating tablet Take 4 mg by mouth every 8 (eight) hours ifneeded for nausea or vomiting ActivepredniSONE 20 mg oral tablet (1 source)Start: 97-98-4571yijz 1 tablet by mouth every twelve hourspredniSONE 20 MG 1 tablet Orally bid for 5 day(s) Feb, Activerimegepant 75 mg disintegrating oral tablet (5 sources)Start: 10-06-2024 End: 00-24-9836Mbaytigwep (Nurtec Odt) 75 mg tablet,disintegrating Active 75 MG PO As Directed 8 January 31, 2025 3:09pm Episodic migraine Migraine, unspecified, not intractable, without status migrainosus Takeone 75 mg tablet by mouth as needed for migraine. Allow tablet to dissolve entirely. Complies with drug therapyStart: 01-26-1978Rhutyldivi Sulfate (Nurtec) 75 MG tablet dispersible Indications: Episodic migraine (CMS/HCC) Take one 75 mg tablet by mouth as needed for migraine. Allow tablet to dissolve entirely. 8 tablet 5 05/19/2024 ActiveStart: 22-29-1306Zphmcblbxj Sulfate (Nurtec) 75 MG tablet dispersible Indications: Episodic migraine (CMS/HCC) Take one 75 mg tablet by mouth as needed for migraine. Allow tablet to dissolve entirely. 8 tablet 5 05/19/2024 Activesulfamethoxazole 800 mg / trimethoprim 160 mg oral tablet (1 source)Dihydrofolate Reductase Inhibitor Antibacterial, Sulfonamide AntimicrobialStart: 10-03-2023 End: 14-82-1047Ispwqkk D.S. 800 mg-160 mg Tab 1 tab(s), Oral, q12hr for 5 day(s), 10 tab(s), Refill(s) 0, [facility], 154, cm, 10/03/23 10:57:00 EDT, Height/Length Dosing, 859, kg, 10/03/23 10:57:00EDT, Weight Dosing Start Date: 10/03/23 Stop Date: 10/08/23 Status: Orderedtamsulosin hydrochloride 0.4 mg oral capsule (3 sources)alpha-Adrenergic BlockerStart: 46-36-1157zfyq 1 capsule by mouth once dailyFlomax 0.4 mg Cap 0.4 mg = 1 cap(s), Oral, Daily, # 10 cap(s), Refills(s) 0, Pharmacy: [facility], 154, cm, 10/03/23 10:57:00 EDT, Height/Length Dosing, 859, kg, 10/03/23 10:57:00 EDT, Weight Dosing Start Date: 10/06/23 Status: OrderedtiZANidine 4 mg oral tablet (20 sources)Central alpha-2 Adrenergic AgonistStart: 10-06-2024 End: 04-56-9508hsrk 1 tablet by mouth once daily at bedtime as neededTizanidine 4 mg tablet Active 4 MG PO Daily at bedtime as needed for muscle spasticity January 12, 2025 9:51am Complies with drug therapyStart: 37-00-8077ouih 2 tablets by mouth at bedtimetiZANidine (Zanaflex) 4 MG tablet Indications: Nonintractable headache, unspecified chronicity pattern, unspecified headache type Take 2 tablets (8 mg) by mouth at bedtime 30 tablet 2 05/12/2024 Active Start: 10-36-5876svKQJthfsq (Zanaflex) 4 MG tablet Take 8 mg by mouth at bedtime 04/19/2023 ActivetiZANidine HCl Activetopiramate 50 mg oral tablet (9 sources)Start: 11-12-2023 End: 53-78-5116xtro 1 tablet by mouth in the morning, then take 2 tablets by mouth in the evening, then take 1 tablet by mouth twice daily, then take 1 tablet by mouth once dailytopiramate 50 MG tablet Indications: 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 status epilepticus, unspecified epilepsy type (CMS/HCC) Take 50 mg by mouth in the am and 100 mg in the evening for 2 weeks. Then reduce to 50 mg by mouth twice daily for 2 weeks. Then reduce to 50 mg by mouth daily for 2 weeks and discontinue. 84 tablet 11/12/2023 12/31/2023 Discontinued (Therapy completed)Start: 58-99-0013uzzf 1 tablet by mouth twice dailytopiramate 100 mg Tab 100 mg = 1 tab(s), Oral, BID, Refills(s) 0 Start Date: 02/11/23 Status: OrderedTopamax ActivetraZODone hydrochloride 50 mg oral tablet (19 sources)Serotonin Reuptake InhibitorStart: 10-14-2024 End: 76-31-2413Wqwauaccg 50 mg tablet Active 75 MG PO Daily at bedtime 45 2 January 12, 2025 2:31pm DepressionDepression, unspecified Complies with drug therapyStart: 10-06-2024 End: 67-42-6182Tkttumvxq 50 mg tablet Discontinued 50 MG PO October 05, 2024 11:00pm October 14, 2024 11:41amStart: 29-57-6171mupn 1 tablet by mouth at bedtimetraZODone (Desyrel) 50 MG tablet Indications: Depression, unspecified depression type (CMS/HCC) Take 1 tablet (50 mg) by mouth at bedtime 30 tablet 2 03/04/2024 ActiveStart: 61-32-1370zeay 1 tablet by mouth at bedtimetraZODone (Desyrel) 50 MG tablet Indications: Depression, unspecified depression type (CMS/HCC) Take 1 tablet (50 mg) by mouth at bedtime 30 tablet 2 02/18/2024 ActiveStart: 43-43-7573qfda 1 tablet by mouth at bedtimetraZODone (Desyrel) 50 MG tablet Indications: Depression, unspecified depression type (CMS/HCC) Take 1 tablet (50 mg) by mouth at bedtime 30 tablet 2 11/12/2023 ActiveStart: 12-18-2216vrnPSZZET 50 mg Tab See Instructions, take half tablet for 2 weeks then increase to 1 tablet daily at bedtime, Refills(s) 0 Start Date: 02/11/23 Status: Ordered Completed/Discontinued Medications MedicationDrug Class(es)DatesSig (Normalized)Sig (Original)amitriptyline hydrochloride 25 mg oral tablet (2 sources)Tricyclic AntidepressantStart: 10-21-2020 End: 77-26-8924cyol 1 tablet by mouth once daily at bedtimeAmitriptyline 25 mg Tablet Discontinued 25 MG PO Daily at bedtime 30 30 0 October 20, 2020 11:00pm Nov emb2024 9:28amcyclobenzaprine hydrochloride 10 mg oral tablet (6 sources)Muscle RelaxantStart: 10-06-2024 End: 94-01-8062Ijkipqgdiucdval 10 mg tablet Discontinued 10 MG PO October 05, 2024 11:00pm February 20, 2025 9:29amStart: 93-19-2661slxs 1 tablet by mouth three times daily as neededcyclobenzaprine (Flexeril) 10 MG tablet Take 10 mg by mouth 3 (three) times a day as needed 03/24/2024 ActiveKetorolac (2 sources)Nonsteroidal Anti-inflammatory Drug, Cyclooxygenase InhibitorStart: 84-90-5713Wvvqrlj per 15 mg August, 60 mgdivalproex sodium 250 mg delayed release oral tablet (1 source)Mood Stabilizer, Anti-epileptic AgentStart: 11-15-2024 End: 30-76-2956ybce 1 tablet by mouth twice dailyDivalproex (Depakote) 250 mg tablet,delayed release (DR/EC) Discontinued 250 MG PO Twice daily 10 50 November 14, 2024 11:00pm February 20, 2025 9:29am Episodic migraine Migraine, unspecified, not intractable, without status migrainosusvenlafaxine 37.5 mg oral tablet (2 sources)Serotonin and Norepinephrine Reuptake InhibitorStart: 10-19-2020 End: 83-43-3278ttuw 1 tablet by mouth twice dailyVenlafaxine 37.5 mg tablet Discontinued 37.5 MG PO Twice daily October 18, 2020 11:00pm February 20, 2025 9:29am Problems Active Problems Problem ClassificationProblemDateDocumented DateEpisodic/ChronicAbdominal pain (4 sources)Right flank exoj10-30-0758UbsjtipqCuqskjgo of urinary tract (4 sources)Kidney dmkit04-53-8771BgasvvcbMlalmbov; convulsions (20 sources)Epilepsy, unspecified, not intractable, without status epilepticus; Translations: [Idiopathic generalized epilepsy]Onset: 32-16-3098SjlxivzTosgstdb; convulsions (5 sources)Unspecified convulsions; Translations: [Seizure]Onset: 07-30-2021 96-78-8702PgyopdavFljbrmk on above:Problem List clean-up per request of Phys. EHR CmteFever of unknown origin (2 sources)Ubvyb32-57-0048JezdkvjpCmzkmxmutfcwl symptoms and ill-defined conditions (4 sources)Blood in vrguy61-85-1520DxhsrjlpNhisxymm; including migraine (3 sources)Migraine, unspecified, not intractable, without status migrainosus; Translations: [Migraine, unspecified, without mention of intractable migraine without mention of status migrainosus]96-23-8568ZrjdewhUlcwfler; including migraine (8 sources)Headache; Translations: [Headache]78-81-1032PaxqfqmjUysatjo on above: Problem List clean-up per request of Phys. EHR CmteMiscellaneous mental health disorders (20 sources)Dissociative convulsions; Translations: [Conversion disorder with seizures or convulsions]Onset: 567937-66-3227UoabeetOdmr disorders (5 sources)Depressive disorder; Translations: [Depression, unspecified depression type (CMS/HCC)]69-38-7740YqtkapqBezzhxy (3 sources)Candidiasis of weumen05-83-3038LggkwkoxGekyy gastrointestinal disorders (7 sources)Diarrhea; Translations: [Diarrhea, unspecified]Onset: 03-14-2023 EpisodicOther injuries and conditions due to external causes (1 source)Injury, unspecified, initial encounterEpisodicOther lower respiratory disease (7 sources)Cough; Translations: [Cough, unspecified]Onset: 98-92-4000Ywciufhl Other lower respiratory disease (2 sources)Bkyilhtj73-74-5388CnfokapvJqade nutritional; endocrine; and metabolic disorders (4 sources)Body mass index 30+ - suvhjzl37-34-5235SwudgqyKlwwj screening for suspected conditions (not mental disorders or infectious disease) (17 sources)MRI scan abnormal; Translations: [Abnormal findings on diagnostic imaging of other specified body structures]Onset: 132173-09-8803Mzolplc Other upper respiratory infections (6 sources)Vpslehwms57-76-0578GptnvzjJyclo upper respiratory infections (7 sources)Acute pharyngitis; Translations: [Acute pharyngitis, unspecified] Onset: 56-39-1291SxpusjzqAwecjg media and related conditions (6 sources)Otitis media of left aen89-02-0988WnvwuikyKjsazmwf codes; unclassified (2 sources)Sleep deprivation; Translations: [Sleep deprivation]10-21-2020 EpisodicComment on above:Problem List clean-up per request of Phys. EHR Cmte Residual codes; unclassified (2 sources)Generalized aches and xayla11-54-3320AodtvzuuAlbhrabxnmz; intervertebral disc disorders; other back problems (2 sources)Spasm of back apuxsbf44-96-1084HzgnocadWarmdfbusqn injury; contusion (1 source)Contusion of right hand, initial encounterEpisodicThyroid disorders (17 sources)Nontoxic multinodular goiter; Translations: [Goiter]Onset: 89-63-8969OlydfzjAupuxvwrgzne (1 source)Contusion of right hand, initial encounter; Translations: [Contusion of right hand, initial encounter]Onset: 45-48-0348Odeemdzsjcyt (6 sources)History of clinical finding in ggoapdb93-27-7962Ulgextg tract infections (2 sources)Urinary tract infectious wqmvvba51-72-8456KqcvcflaCwzxq infection (8 sources)Disease caused by 2019-nCoV; Translations: [COVID-19]Onset: 03-14-2023 Past or Other Problems Problem ClassificationProblemDateDocumented DateEpisodic/ChronicUnclassified (1 source)Contact with and (suspected) exposure to covid-19 Z20.822 Results Test NameValueInterpretationReference RangeFacilityC Urineon 96-89-9490Orhqjfch identified Cx Nom (U)Microbiology PROCEDURE: Urine Culture [R1] SOURCE: U CleanCatch BODY SITE: COLLECTED DATE/TIME: 08/20/2024 12:01 EDT RECEIVED DATE/TIME: 08/20/2024 17:52 EDT START DATE/TIME: 08/20/2024 17:52 EDT FREE TEXT SOURCE: Brigida Garg, Brigida Padilla FINAL REPORTS Final Report [] Verified Date/Time: 08/22/2024 06:42 EDT <10,000 cfu/ml Mixed skin contaminants Performing Locations R1: This test was performed at: [facility], [address] [place] [address], [id number]- , , QttpniHdgdxiMiddletown HospitalComment on above:Performed By: #### [id number] #### [facility] [address] [place] [id number] Medicine Office/Clinic Noteon 29-84-7008Kvgqyq Medicine Office/Clinic NoteFami Medicine Office/Clinic Note HPI Staff Liana is a 38 year old female presenting with diarrhea, back pain, frequency, vaginal burning Finished Bactrim 2 weeks ago for UTI Diarrhea started Friday tried Imodium did help some, stomach still hurts stomach is gurgling Frequency- she is going every hour Vaginal burning- it will burn even she doesn't have to urinate about the same burning when she is urinating History of Present Illness pt presents today for diarrhea since friday. urinary frequency and yeast infection symptoms Review of Systems PHQ Score Initial Depression Screen Score: 0 SCORE Physical Exam Vitals & Measurements T: 36.2 ???C(Oral) HR: 80(Peripheral) RR: 20 BP: 124/84 SpO2: 100% HT: 61 in HT: 154.0 cm WT: 90.1 kg WT: 198.636 lb BMI: 37.99 General: alert, no acute distress ENMT: oral mucosa moist, no pharyngeal erythema or exudate Cardiovascular: regular rate and rhythm, normal peripheral perfusion Respiratory: Lungs CTA, respirations non labored Extremities: no deformity, no trauma Neurological: oriented x 4, LOC appropriate for age, CN II-XII intact, motor strength equal & normal bilaterally, speech normal perineum and vaginal opening are excoriated and red, white discharge noted Assessment/Plan 1. Diarrhea (R19.7: Diarrhea, unspecified) pt has had diarrhea since Friday. she finished second round of antibiotics 2 weeks ago. she was provided supplies to collect stool sample and take to [facility]. would like to rule out c diff. pt c/o cramping with the diarrhea. will send bentyl. also send cipro and flagyl. pt will hold those until we get the stool culture back. encouraged her to stay hydrated. if diarrhea worsens or she becomes weak or dizzy she will go to ER for IV hydration. pt will remain off of work until Friday 2. Frequency of urination (R35.0: Frequency of micturition) U/A results in chart. will send for culture. pt was on Macrobid then Bactrim for recent UTI. Ordered: ciprofloxacin, 500 mg = 1 tab(s), Oral, q12hr, X 7 day(s), # 14 tab(s), Refills(s) 0, Pharmacy: [facility], 154, cm, 08/20/24 11:50:00 EDT, Height/Length Dosing, 90.1, kg, 08/20/24 11:50:00 EDT, Weight Dosing dicyclomine, 20 mg = 1 tab(s), Oral, QID, X 10 day(s), # 40 tab(s), Refills(s) 0, [facility], cm, 08/20/24 11:50:00 EDT, Height/Length Dosing, 90.1, kg, 08/20/24 11:50:00 EDT, Weight Dosing fluconazole, 150 mg = 1 tab(s), Oral, Daily, # 7 tab(s), Refills(s) 0, Pharmacy: [facility], 154, cm, 08/20/24 11:50:00 EDT, Height/Length Dosing, 90.1, kg, 08/20/24 11:50:00 EDT, Weight Dosing metronidazole, 500 mg = 1 tab(s), Oral, q8hr, X 7 day(s), # 21 tab(s), Refills(s) 0, Pharmacy: [facility], 154, cm, 08/20/24 11:50:00 EDT, Height/Length Dosing, 90.1, kg, 08/20/24 11:50:00EDT, Weight Dosing Urine Culture Urnls Dip Stick Auto w/o Microscopy POC 59268 3. Non-smoker (Z78.9: Other specified health status) continue not smoking Ordered: ciprofloxacin, 500 mg = 1 tab(s), Oral, q12hr, X 7 day(s), # 14 tab(s), Refills(s) 0, Pharmacy: [facility], 154, cm, 08/20/24 11:50:00 EDT, Height/Length Dosing, 90.1, kg, 08/20/24 11:50:00 EDT, Weight Dosing dicyclomine, 20 mg = 1 tab(s), Oral, QID, X 10 day(s), # 40 tab(s), Refills(s) 0, Pharmacy: [facility], 154, cm, 08/20/24 11:50:00 EDT, Height/Length Dosing, 90.1, kg, 08/20/24 11:50:00 EDT, Weight Dosing fluconazole, 150 mg = 1 tab(s), Oral, Daily, # 7 tab(s), Refills(s) 0, Pharmacy: [facility], 154, cm, 08/20/24 11:50:00 EDT, Height/Length Dosing, 90.1, kg, 08/20/24 11:50:00 EDT, Weight Dosing fluconazole, 150 mg = 1 tab(s), Oral, Once, take 1 tab on day one and 1 tabon day four, # 2 tab(s),Refills(s) 1, Pharmacy: [facility], 154, cm, 07/07/24 11:39:00 EDT, Height/Length Dosing, 87, kg, 07/07/24 11:39:00 EDT, Weight Dosing metronidazole, 500 mg = 1 tab(s), Oral, q8hr, X 7 day(s), # 21 tab(s), Refills(s) 0, Pharmacy: [facility], 154, cm, 08/20/24 11:50:00 EDT, Height/Length Dosing, 90.1, kg, 08/20/24 11:50:00EDT, Weight Dosing 4. BMI 37.0-37.9, adult (Z68.37: Body mass index [BMI] 37.0-37.9, adult) BMI education Ordered: ciprofloxacin, 500 mg = 1 tab(s), Oral, q12hr, X 7 day(s), # 14 tab(s), Refills(s) 0, Pharmacy: [facility], 154, cm, 08/20/24 11:50:00 EDT, Height/Length Dosing, 90.1, kg, 08/20/24 11:50:00 EDT, Weight Dosing dicyclomine, 20 mg = 1 tab(s), Oral, QID, X 10 day(s), # 40 tab(s), Refills(s) 0, Pharmacy: [facility]29, 154, cm, 08/20/24 11:50:00 EDT, Height/Length Dosing, 90.1, kg, 08/20/24 11:50:00 EDT, Weight Dosing fluconazole, 150 mg = 1 tab(s), Oral, Daily, # 7 tab(s), Refills(s) 0, Pharmacy: [facility], 154, cm, 08/20/24 11:50:00 EDT, Height/Length Dosing, 90.1, kg, 08/20/24 11:50:00 EDT, Weight Dosing metronidazole, 500 mg = 1 tab(s), Oral, q8hr, X 7 day(s), # 21 tab(s), Refills(s) 0, Pharmacy: [facility], 154, (more content not included)...[facility] HospitalComment on above:Result Comment: Electronically Signed By: Brigida Garg\.br\Date and Time Signed: 08/20/24 12:47 EDTProvider Letteron [id number] LetterProvider Letter August 20, 2024 LIANA JASON [address] [place] [address] : 1985 To Whom It May Concern, Please excuse above patient from work. Date of Illness: From: 08/20/2024 To: 08/22/2024 May Return to Work On: 08/23/2024 Sincerely, [address] [address] PjcpgcWhrfmsMiddletown HospitalC Urineon [id number] identified Cx Nom (U)Microbiology PROCEDURE: Urine Culture [R1] SOURCE: U CleanCatch BODY SITE: COLLECTED DATE/TIME: 07/07/2024 11:47 EDT RECEIVED DATE/TIME: 07/07/2024 17:59 EDT START DATE/TIME: 07/07/2024 17:59 EDT FREE TEXT SOURCE: Veronica VÁSQUEZ, Brigida VÁSQUEZ, Brigida Padilla FINAL REPORTS Final Report [] Verified Date/Time: 07/09/2024 11:28 EDT <10,000 cfu/ml Mixed skin contaminants Performing Locations R1: This test was performed at: [facility], [address] [place] [address], [address] [place] [address], RgzaauSrdofkMiddletown HospitalComment on above:Performed By: #### [id number] #### [facility] [address] [place] [address] Medicine Office/Clinic Noteon [id number] Medicine Office/Clinic NoteFacape cod and [facility] Medicine Office/Clinic Note HPI Staff Liana is a 38 year old female presenting for UTI symptoms Dysuria: Onset: 2-3 weeks Symptoms: burring, frequency, odor , itching OTC used: fluconazole had extra Last UTI: Hx of kidney stones: yes UA in office documented in chart History of Present Illness pt presents today for UTI and yeast symptoms Review of Systems PHQ Score Initial Depression Screen Score: 0 SCORE Physical Exam Vitals & Measurements HR: 80(Peripheral) RR: 18 BP: 110/84 SpO2: 99% HT: 61 in HT: 154.0 cm WT: 87.0 kg WT: 191.802 lb BMI: 36.68 General: alert, no acute distress ENMT: oral mucosa moist, no pharyngeal erythema or exudate Cardiovascular: regular rate and rhythm, normal peripheral perfusion Respiratory: Lungs CTA, respirations non labored Extremities: no deformity, no trauma Neurological: oriented x 4, LOC appropriate for age, CN II-XII intact, motor strength equal & normal bilaterally, speech normal Assessment/Plan 1. Urinary tract infection (N39.0: Urinary tract infection, site not specified) pt having urinary symptoms. has history of kidney stones. will send Macrobid and will also send urine for culture. Ordered: E&M of Est. Patient Low 20-29 Min 01739 2. Yeast infection of the vagina (B37.31: Acute candidiasis of vulva and vagina) will send diflucan Ordered: E&M of Est. Patient Low 20-29 Min 60516 3. Adult BMI 36.0-36.9 kg/sq m (Z68.36: Body mass index [BMI] 36.0-36.9, adult) BMI education given Ordered: brompheniramine/dextromethorphan/PSE, 5 mL, Oral, QID for cough and congestion, 200 mL, Refill(s) 0, [facility], 154, cm, 04/01/24 8:57:00 EST, Height/Length Dosing, 86.4, kg, 04/01/24 8:57:00 EST, Weight Dosing cyclobenzaprine, 10 mg = 1 tab(s), Oral, TID, PRN for spasm, # 30 tab(s), Refills(s) 0, Pharmacy: [facility], 154, cm, 03/24/24 11:47:00 EST, Height/Length Dosing, 87.1, kg, 03/24/24 11:47:00 EST, Weight Dosing fluconazole, 150 mg = 1 tab(s), Oral, Once, take 1 tab on day one and 1 tabon day four, # 2 tab(s),Refills(s) 1, Pharmacy: [facility], 154, cm, 07/07/24 11:39:00 EDT, Height/Length Dosing, 87, kg, 07/07/24 11:39:00 EDT, Weight Dosing nitrofurantoin, 100 mg = 1 cap(s), Oral, BID, X 7 day(s), # 14 cap(s), Refills(s) 0, Pharmacy: [facility], 154, cm, 07/07/24 11:39:00 EDT, Height/Length Dosing, 87, kg, 07/07/24 11:39:00 EDT, Weight Dosing E&M of Est. Patient Low 20-29 Min 40538 Urine Culture 4. Non-smoker (Z78.9: Other specified health status) continue not smoking Ordered: brompheniramine/dextromethorphan/PSE, 5 mL, Oral, QID for cough and congestion, 200 mL, Refill(s) 0, [facility], 154, cm, 04/01/24 8:57:00 EST, Height/Length Dosing, 86.4, kg, 04/01/24 8:57:00 EST, Weight Dosing cyclobenzaprine, 10 mg = 1 tab(s), Oral, TID, PRN for spasm, # 30 tab(s), Refills(s) 0, Pharmacy: [facility], 154, cm, 03/24/24 11:47:00 EST, Height/Length Dosing, 87.1, kg, 03/24/24 11:47:00 EST, Weight Dosing fluconazole, 150 mg = 1 tab(s), Oral, Once, take 1 tab on day one and 1 tabon day four, # 2 tab(s),Refills(s) 1, Pharmacy: [facility], 154, cm, 07/07/24 11:39:00 EDT, Height/Length Dosing, 87, kg, 07/07/24 11:39:00 EDT, Weight Dosing nitrofurantoin, 100 mg = 1 cap(s), Oral, BID, X 7 day(s), # 14 cap(s), Refills(s) 0, Pharmacy: [facility], 154, cm, 07/07/24 11:39:00 EDT, Height/Length Dosing, 87, kg, 07/07/24 11:39:00 EDT, Weight Dosing E&M of Est. Patient Low 20-29 Min 47085 Urine Culture Frequency of urination (R35.0: Frequency of micturition) u/a positive for leuks and protein. will send for culture Ordered: Urnls Dip Stick Auto w/o Microscopy POC 14989 Orders: doxycycline, 100 mg = 1 cap(s), Oral, BID, # 20 cap(s), Refills(s) 0, Pharmacy: [facility], 154, cm, 04/01/24 8:57:00 EST, Height/Length Dosing, 86.4, kg, 04/01/24 8:57:00 EST, Weight Dosing ibuprofen, 800 mg = 1 tab(s), Oral, q8hr, # 30 tab(s), Refills(s) 0, Pharmacy: [facility], 154, cm, 10/14/23 10:34:00 EDT, Height/Length Dosing, 85.6, kg, 10/14/23 10:34:00 EDT, Weight Dosing Follow-up No qualifying data available Problem List/Past Medical History Ongoing Adult BMI 36.0-36.9 kg/sq m Back muscle spasm Body aches Cough COVID Diarrhea Fever Hematuria History of seizures Kidney stone Left otitis media Obesity (BMI 30-39.9) Right flank pain Sinusitis Sore throat Urinary tract infection Wheezing Yeast infection of the vagina Historical No qualifying data Medications Diflucan 150 mg Tab, 150 mg= 1 tab(s), Oral, Once, 1 refills lamotrigine 25 mg Tab levetiracetam 1000 mg oral tablet, See Instructions Macrobid 100 mg Cap, 100 mg= 1 cap(s), Oral, BID tizanidine, 4 mg, Oral, Once a day (at bedtime) traZODONE 50 mg Tab Allergies Procardia (Tachycardia) Social History Alcohol - Denies Alcohol Use, 10/14/2023 (more content not included)...[facility] HospitalComment on above: Result Comment: Electronically Signed By: Brigida Garg\.br\Date and Time Signed: 07/07/24 11:48 EDTLaboratory - Microbiology and Antimicrobial susceptibilityOrdered By: Altagracia Vargas on [id number] identified Cx Nom (U) <10,000 cfu/ml Mixed skin contaminantsKing's [facility]aughters [facility] Medicine Office/Clinic Noteon [id number] Medicine Office/Clinic NoteFacape cod and the [facility] Medicine Office/Clinic Note HPI Staff This visit was conducted via two-way, real-time interactive video communications by Brigida Garg from my office using [employer]. The patient was located at their home, located at [address] [facility] [phone], with _ in attendance. A signed authorization for treatment has been obtained via our standard authorization packet or by verbal consent by the patient or their legal membership sales representative. The patient's identity and location in [place] has been verified by our office staff. If it isdetermined that the patient should be evaluated in the clinic, the patient will be directed to the appropriate clinic or venue. A limited physical exam will be conducted reviewing those areas of the body visible via telecommunications. Total time spent preparing the chart, conducting the encounter with the patient and family, and time spent documenting, reviewing, and ordering tests was _ minutes. All records and visits comply with HIPAA standards. Patient or Guardian reported vitals: Temp: _ Wt: 190.47 lbs Ht: 154 cm BP: _ HR: _ Sp02: _ Symptoms started- started 4 days ago Headache- yes Body aches- yes the worst Earache- no Runny/stuffy nose- no Problem with Smell- no Problem with Taste- no Sore throat- a little bit Cough- cough Scratchy tickly a liitle bit AMADOR- Orthopnea- Lung Hx asthma, bronchitis, chest colds- no Fever/chills- yes GI symptoms- COVID exposure- loni Did not COVID tested- Tried- Tylenol Is running fever this morning 102.8 went down to 100.9 History of Present Illness pt presents via video visit for cough, fever, body aches Physical Exam via video visit she is bundled up in her winter coat and a blanket because she is so cold. cheeks are red. Assessment/Plan 1. Cough (R05.9: Cough, unspecified) pt presents via video visit for cough, fever body aches. unable to test for flu or covid. has been sick for 4 days so wouldn't be able to order tamiflu anyways. will treat with doxy and medrol dose pack. pt did not want bromfed or tessalon pearls. Ordered: TELEHEALTH Office Visit Level 3 Est 10942 2. Fever (R50.9: Fever, unspecified) rotate tylenol and motrin Ordered: TELEHEALTH Office Visit Level 3 Est 03067 3. Body aches (R52: Pain, unspecified) stay hydrated. Ordered: TELEHEALTH Office Visit Level 3 Est 18184 Orders: doxycycline, 100 mg = 1 cap(s), Oral, BID, # 20 cap(s), Refills(s) 0, Pharmacy: [facility], 154, cm, 04/01/24 8:57:00 EST, Height/Length Dosing, 86.4, kg, 04/01/24 8:57:00 EST, Weight Dosing methylPREDNISolone, = 1 packet(s), Oral, As Directed, as directed on package labeling, X 6 day(s), # 21 tab(s), Refills(s) 0, Pharmacy: [facility], 154, cm, 04/01/24 8:57:00 EST, Height/Length Dosing, 86.4, kg, 04/01/24 8:57:00 EST, Weight Dosing Follow-up No qualifying data available Problem List/Past Medical History Ongoing Adult BMI 36.0-36.9 kg/sq m Back muscle spasm Body aches Cough COVID Diarrhea Fever Hematuria History of seizures Kidney stone Left otitis media Obesity (BMI 30-39.9) Right flank pain Sinusitis Sore throat Wheezing Historical No qualifying data Medications Bromfed DM oral syrup, 5 mL, Oral, QID, PRN cyclobenzaprine 10 mg Tab, 10 mg= 1 tab(s), Oral, TID, PRN doxycycline hyclate 100 mg Cap, 100 mg= 1 cap(s), Oral, BID ibuprofen 800 mg Tab, 800 mg= 1 tab(s), Oral, q8hr lamotrigine 25 mg Tab levetiracetam 1000 mg oral tablet, See Instructions Medrol 4 mg Tab, 1 packet(s), Oral, As Directed tizanidine, 4 mg, Oral, Once a day (at bedtime) traZODONE 50 mg Tab Allergies Procardia (Tachycardia) Social History Alcohol - Denies Alcohol Use, 10/14/2023 Never., 03/24/2024 Substance Abuse - Denies Substance Abuse, 10/14/2023 Never., 03/24/2024 Tobacco Never (less than 100 in lifetime) Tobacco Use:. Never Smokeless Tobacco Use:. Household tobacco concerns: No. Yes, 04/01/2024[facility] Comment on above:Result Comment: Electronically Signed By: Brigida Garg\.br\Date and Time Signed: 04/29/24 14:42 ESTAmbulatory Visit Summaryon [id number] Visit SummaryAmbulatory Visit Summary LIANA JASON :1985 Visit Date:04/01/2024 Ambulatory Visit Instructions Your Diagnosis Cough Fever Wheezing Adult BMI 36.0-36.9 kg/sq m Obesity (BMI 30-39.9) Non-smoker Your Care Team Attending Physician - Brigida Garg Primary Care Physician - Brigida Garg This Is Your Medications List amoxicillin (amoxicillin 875 mg Tab) azithromycin (azithromycin 250 mg Tab) benzonatate (Tessalon 100 mg Cap) brompheniramine/dextromethorphan/PSE (Bromfed DM oral syrup) cyclobenzaprine (cyclobenzaprine 10 mg Tab) ibuprofen (ibuprofen 800 mg Tab) lamotrigine (lamotrigine 25 mg Tab) levetiracetam (levetiracetam 1000 mg oral tablet) methylPREDNISolone (Medrol 4 mg Tab) tizanidine trazodone (traZODONE 50 mg Tab) Discharge Vitals Temperature (Tympanic) 36.8 ???C Heart Rate (Peripheral) 97 Respiratory Rate 18 Blood Pressure 128/76 Height 154 cm Height 61 in Weight 86.4 kg Weight 190.479 lb BMI 36.43 Medications What How Much When Why Instructions New azithromycin (azithromycin 250 mg Tab) 1 Packets By Mouth As Directed Cough Non-smoker Obesity (BMI 30-39.9) Wheezing Adult BMI 36.0-36.9 kg/sq m Duration: 5 Days as directed on package labeling Pickup at [facility] New benzonatate (Tessalon 100 mg Cap) 1 Capsules By Mouth 3 times a day Cough Non-smoker Obesity (BMI 30-39.9) Wheezing Adult BMI 36.0-36.9 kg/sq m Duration: 10 Days Pickup at [facility] New brompheniramine/ dextromethorphan/ PSE (Bromfed DM oral syrup) 5 Milliliter By Mouth 4 times a day as needed for for cough and congestion Cough Non-smoker Obesity (BMI 30-39.9) Wheezing Adult BMI36.0-36.9 kg/sq m Pickup at [facility] New methylPREDNISolone (Medrol 4 mg Tab) 1 Packets By Mouth As Directed Cough Non-smoker Obesity (BMI 30-39.9) Wheezing Adult BMI 36.0-36.9 kg/sq m Duration: 6 Days as directed on package labeling Pickup at [facility] Unchanged amoxicillin (amoxicillin 875 mg Tab) 1 Tablets By Mouth 2 times a day Duration: 7 Days Unchanged cyclobenzaprine (cyclobenzaprine 10 mg Tab) 1 Tablets By Mouth 3 times a day as needed for for spasm BMI 36.0-36.9,adult Non-smoker Adult BMI 36.0-36.9 kg/sq m Unchanged ibuprofen (ibuprofen 800 mg Tab) 1 Tablets By Mouth Every 8 hours Unchanged lamotrigine (lamotrigine 25 mg Tab) TAKE 2 TABLETS BY MOUTH IN THE MORNING and TAKE 2 TABLETS BEFORE bedtime Unchanged levetiracetam (levetiracetam 1000 mg oral tablet) See instructions Take 1 and 1/ 2 tablets BID Unchanged tizanidine 4 Milligram By Mouth Once a day (at bedtime) Unchanged trazodone (traZODONE 50 mg Tab) TAKE 1 TABLET BY MOUTH AT BEDTIME Pharmacy Information [facility]: [address] [place], [place] [id number] [phone] Allergies Procardia (Tachycardia) Problems Ongoing - Any problem that you are currently receiving treatment for. Adult BMI 36.0-36.9 kg/sq m Back muscle spasm Cough COVID Diarrhea Fever Hematuria History of seizures Kidney stone Left otitis media Obesity (BMI 30-39.9) Right flank pain Sinusitis Sore throat Wheezing Patient Survey You may receive a survey via text or e-mail asking about your office visit. Please share your experience with us by completing your survey. We appreciate your feedback and thank you for choosing us for your care. [facility] Medicine Office/Clinic Noteon [id number] Medicine Office/Clinic NoteFacape cod and the [facility] Medicine Office/Clinic Note Chief Complaint Acute Sick Visit HPI Staff Liana is a 38 year old female presenting for acute visit Acute: deep barky cough, loss of voice Amoxicillin sent in on 03/29 for cough and sinus and pt stated couldn't afford appt Non productive cough & body aches for the past week. Denies sore throat. Fever of 101.2 at home yesterday am. Has been taking Tylenol & ibuprofen. History of Present Illness pt presents today with URI symptoms Review of Systems PHQ Score Initial Depression Screen Score: 0 SCORE Physical Exam Vitals & Measurements T: 36.8 ???C(Tympanic) HR: 97(Peripheral) RR: 18 BP: 128/76 SpO2: 99% HT: 61 in HT: 154 cm WT: 86.4 kg WT: 190.479 lb BMI: 36.43 General: alert, no acute distress ENMT: oral mucosa moist, yes pharyngeal erythema or no exudate Cardiovascular: regular rate and rhythm, normal peripheral perfusion Respiratory: Lungs expiratory wheezes, respirations non labored Extremities: no deformity, no trauma Neurological: oriented x 4, LOC appropriate for age, CN II-XII intact, motor strength equal & normal bilaterally, speech normal Assessment/Plan 1. Cough (R05.9: Cough, unspecified) pt presents today with severe cough and laryngitis. will treat with z bakari, medrol dose pack, tessalon pearls and bromfed. will stay home from work today and tomorrow. Ordered: azithromycin, = 1 packet(s), Oral, As Directed, as directed on package labeling, X 5 day(s), # 6 tab(s), Refills(s) 0, Pharmacy: [facility], 154, cm, 04/01/24 8:57:00 EST, Height/Length Dosing, 86.4, kg, 04/01/24 8:57:00 EST, Weight Dosing benzonatate, 100 mg = 1 cap(s), Oral, TID, X 10 day(s), # 30 cap(s), Refills(s) 0, Pharmacy: [facility], 154, cm, 04/01/24 8:57:00 EST, Height/Length Dosing, 86.4, kg, 04/01/24 8:57:00 EST, Weight Dosing brompheniramine/dextromethorphan/PSE, 5 mL, Oral, QID for cough and congestion, 200 mL, Refill(s) 0, [facility], 154, cm, 04/01/24 8:57:00 EST, Height/Length Dosing, 86.4, kg, 04/01/24 8:57:00 EST, Weight Dosing methylPREDNISolone, = 1 packet(s), Oral, As Directed, as directed on package labeling, X 6 day(s), # 21 tab(s), Refills(s) 0, Pharmacy: [facility], 154, cm, 04/01/24 8:57:00 EST, Height/Length Dosing, 86.4, kg, 04/01/24 8:57:00 EST, Weight Dosing 2. Fever (R50.9: Fever, unspecified) rotate tylenol and motrin 3. Wheezing (R06.2: Wheezing) medrol dose pack sent in Ordered: azithromycin, = 1 packet(s), Oral, As Directed, as directed on package labeling, X 5 day(s), # 6 tab(s), Refills(s) 0, Pharmacy: [facility], 154, cm, 04/01/24 8:57:00 EST, Height/Length Dosing, 86.4, kg, 04/01/24 8:57:00 EST, Weight Dosing benzonatate, 100 mg = 1 cap(s), Oral, TID, X 10 day(s), # 30 cap(s), Refills(s) 0, Pharmacy: [facility], 154, cm, 04/01/24 8:57:00 EST, Height/Length Dosing, 86.4, kg, 04/01/24 8:57:00 EST, Weight Dosing brompheniramine/dextromethorphan/PSE, 5 mL, Oral, QID for cough and congestion, 200 mL, Refill(s) 0, [facility], 154, cm, 04/01/24 8:57:00 EST, Height/Length Dosing, 86.4, kg, 04/01/24 8:57:00 EST, Weight Dosing methylPREDNISolone, = 1 packet(s), Oral, As Directed, as directed on package labeling, X 6 day(s), # 21 tab(s), Refills(s) 0, Pharmacy: [facility], 154, cm, 04/01/24 8:57:00 EST, Height/Length Dosing, 86.4, kg, 04/01/24 8:57:00 EST, Weight Dosing 4. Adult BMI 36.0-36.9 kg/sq m (Z68.36: Body mass index [BMI] 36.0-36.9, adult) BMI education given Ordered: azithromycin, = 1 packet(s), Oral, As Directed, as directed on package labeling, X 5 day(s), # 6 tab(s), Refills(s) 0, Pharmacy: [facility], 154, cm, 04/01/24 8:57:00 EST, Height/Length Dosing, 86.4, kg, 04/01/24 8:57:00 EST, Weight Dosing benzonatate, 100 mg = 1 cap(s), Oral, TID, X 10 day(s), # 30 cap(s), Refills(s) 0, Pharmacy: [facility], 154, cm, 04/01/24 8:57:00 EST, Height/Length Dosing, 86.4, kg, 04/01/24 8:57:00 EST, Weight Dosing brompheniramine/dextromethorphan/PSE, 5 mL, Oral, QID for cough and congestion, 200 mL, Refill(s) 0, [facility], 154, cm, 04/01/24 8:57:00 EST, Height/Length Dosing, 86.4, kg, 04/01/24 8:57:00 EST, Weight Dosing methylPREDNISolone, = 1 packet(s), Oral, As Directed, as directed on package labeling, X 6 day(s), # 21 tab(s), Refills(s) 0, Pharmacy: [facility], 154, cm, 04/01/24 8:57:00 EST, Height/Length Dosing, 86.4, kg, 04/01/24 8:57:00 EST, Weight Dosing 5. Obesity (BMI 30-39.9) (E66.9: Obesity, unspecified) see above Ordered: azithromycin, = 1 packet(s), Oral, As Directed, as directed on package labeling, X 5 day(s), # 6 tab(s), Refills(s) 0, Pharmacy: [facility], 154, cm, 04/01/24 8:57:00 EST, Height/Length Dosing, 86.4, kg, 04/01/24 8:57:00 EST, Weight Dosing benzonatate, 100 mg = 1 cap(s), Oral, TID, X 10 day(s), # 30 cap(s), Refills(s) 0, Pharmacy (more content not included)...[facility] Comment on above:Result Comment: Electronically Signed By: Brigida Garg\.br\Date and Time Signed: 04/01/24 09:08 ESTProvider Letteron 04-01-2024 Provider LetterProvider Letter April 01, 2024 LIANA JASON [address] [place] [address] : 1985 To Whom It May Concern, Please excuse above patient from work due to illness Date of Illness: From: To: _04-02-24 May Return to Work On:04-03-24 Restrictions: _ Comments: _ Sincerely, [place] [address] BelsesIndxmlMiddletown HospitalProvider LetterProvider Letter April 01, 2024 LIANA JASON [address] [place] [address] : 1985 To Whom It May Concern, Please excuse above patient from work due to illness. Date of Illness: From: _04-01-24 To: _04-01-24 May Return to Work On:04-02-24 Restrictions: _ Comments: _ Sincerely, [place] [id number] VfhnobEqcjvqMiddletown HospitalAmbulatory Visit Summaryon [id number] Visit SummaryAmbulatory Visit Summary EREN LIANA :1985 Visit Date:03/24/2024 Ambulatory Visit Instructions Your Diagnosis Back muscle spasm BMI 36.0-36.9,adult, Adult BMI 36.0-36.9 kg/sq m Non-smoker Your Care Team Attending Physician - Brigida Garg Primary Care Physician - Brigida Garg This Is Your Medications List cyclobenzaprine (cyclobenzaprine 10 mg Tab) ibuprofen (ibuprofen 800 mg Tab) lamotrigine (lamotrigine 25 mg Tab) levetiracetam (levetiracetam 1000 mg oral tablet) tizanidine trazodone (traZODONE 50 mg Tab) Discharge Vitals Temperature (Tympanic) 36.8 ???C Heart Rate (Peripheral) 91 Respiratory Rate 18 Blood Pressure 128/80 Height 154 cm Height 61 in Weight 87.1 kg Weight 192.022 lb BMI 36.73 Medications What How Much When Why Instructions New cyclobenzaprine (cyclobenzaprine 10 mg Tab) 1 Tablets By Mouth 3 times a day as needed for for spasm BMI 36.0-36.9,adult Non-smoker Adult BMI 36.0-36.9 kg/sq m Pickup at [facility] Unchanged ibuprofen (ibuprofen 800 mg Tab) 1 Tablets By Mouth Every 8 hours Unchanged lamotrigine (lamotrigine 25 mg Tab) TAKE 2 TABLETS BY MOUTH IN THE MORNING and TAKE 2 TABLETS BEFORE bedtime Unchanged levetiracetam (levetiracetam 1000 mg oral tablet) See instructions Take 1 and 1/ 2 tablets BID Unchanged tizanidine 4 Milligram By Mouth Once a day (at bedtime) Unchanged trazodone (traZODONE 50 mg Tab) TAKE 1 TABLET BY MOUTH AT BEDTIME Pharmacy Information [facility]: [address], [place] [id number] [phone] Medications and Immunizations Administered Given Kenalog-40, 40 mg, IntraMuscular. For: Back muscle spasm ketorolac 30 mg/mL Inj 1 mL, 30 mg, IntraMuscular. For: Back muscle spasm Allergies Procardia (Tachycardia) Problems Ongoing - Any problem that you are currently receiving treatment for. Adult BMI 36.0-36.9 kg/sq m Back muscle spasm Cough COVID Diarrhea Hematuria History of seizures Kidney stone Left otitis media Right flank pain Sinusitis Sore throat Patient Survey You may receive a survey via text or e-mail asking about your office visit. Please share your experience with us by completing your survey. We appreciate your feedback and thank you for choosing us for your care. [facility] Medicine Office/Clinic Noteon [id number] Medicine Office/Clinic NoteFacape cod and the islands mental [facility] center Medicine Office/Clinic Note Chief Complaint Back pain HPI Staff Liana is a 38 year old female presenting with upper back spasms, possible pinched nerve Ramsay something pop on Friday while bending over. Current pain is 7/10. Has been taking Tizanidine & Ibuprofen. Has shooting pain that radiates to Rt shoulder. History of Present Illness pt presents today with upper back pain Review of Systems PHQ Score Initial Depression Screen Score: 0 SCORE Physical Exam Vitals & Measurements T: 36.8 ???C(Tympanic) HR: 91(Peripheral) RR: 18 BP: 128/80 SpO2: 99% HT: 61 in HT: 154 cm WT: 87.1 kg WT: 192.022 lb BMI: 36.73 General: alert, no acute distress ENMT: oral mucosa moist, no pharyngeal erythema or exudate Cardiovascular: regular rate and rhythm, normal peripheral perfusion Respiratory: Lungs CTA, respirations non labored Extremities: no deformity, no trauma Neurological: oriented x 4, LOC appropriate for age, CN II-XII intact, motor strength equal & normal bilaterally, speech normallimited ROM when bending due to pain Assessment/Plan 1. Back muscle spasm (M62.830: Muscle spasm of back) pt presents today for right upper back muscle pain. will give toradol and kenalog in office today. will send cyclobenzaprine to pharmacy. 2. BMI 36.0-36.9,adult, (Z68.36: Body mass index [BMI] 36.0-36.9, adult)Adult BMI 36.0-36.9 kg/sq m BMI education given Ordered: cyclobenzaprine, 10 mg = 1 tab(s), Oral, TID, PRN for spasm, # 30 tab(s), Refills(s) 0, Pharmacy: [facility], 154, cm, 03/24/24 11:47:00 EST, Height/Length Dosing, 87.1, kg, 03/24/24 11:47:00 EST, Weight Dosing 3. Non-smoker (Z78.9: Other specified health status) continue not smoking Ordered: cyclobenzaprine, 10 mg = 1 tab(s), Oral, TID, PRN for spasm, # 30 tab(s), Refills(s) 0, Pharmacy: [facility], 154, cm, 03/24/24 11:47:00 EST, Height/Length Dosing, 87.1, kg, 03/24/24 11:47:00 EST, Weight Dosing Orders: fluconazole, 150 mg = 1 tab(s), Oral, Once, take 1 tab on day one and 1 tabon day four, # 2 tab(s),Refills(s) 1, Pharmacy: [facility], 154, cm, 11/07/23 8:58:00 EDT, Height/Length Dosing, 84.2, kg, 11/07/23 8:58:00 EDT, Weight Dosing tamsulosin, 0.4 mg = 1 cap(s), Oral, Daily, # 10 cap(s), Refills(s) 0, Pharmacy: [facility], 154, cm, 10/03/23 10:57:00 EDT, Height/Length Dosing, 859, kg, 10/03/23 10:57:00 EDT, Weight Dosing Follow-up No qualifying data available Problem List/Past Medical History Ongoing Adult BMI 36.0-36.9 kg/sq m Back muscle spasm Cough COVID Diarrhea Hematuria History of seizures Kidney stone Left otitis media Right flank pain Sinusitis Sore throat Historical No qualifying data Medications cyclobenzaprine 10 mg Tab, 10 mg= 1 tab(s), Oral, TID, PRN ibuprofen 800 mg Tab, 800 mg= 1 tab(s), Oral, q8hr lamotrigine 25 mg Tab levetiracetam 1000 mg oral tablet, See Instructions tizanidine, 4 mg, Oral, Once a day (at bedtime) traZODONE 50 mg Tab Allergies Procardia (Tachycardia) Social History Alcohol - Denies Alcohol Use, 10/14/2023 Never., 03/24/2024 Substance Abuse - Denies Substance Abuse, 10/14/2023 Never., 03/24/2024 Tobacco Never (less than 100 in lifetime) Tobacco Use:. Never Smokeless Tobacco Use:. Household tobacco concerns: No. Yes, 03/24/2024[facility] Comment on above:Result Comment: Electronically Signed By: Brigida Garg.ken\Date and Time Signed: 03/24/24 12:05 [facility] Medicine Office/Clinic Note on [id number] Note HPI Staff Liana is a 38 year old female presenting for kidney stones 10/13 referred to urology 2 stones on rt and cyst lt kidney Has appt with Urology November 18 10/03/23 SAUMYA @ [facility] Too many seizures since last . She current has a migraines now, Only gets migraines if she has seizures History of Present Illness pt presents today for follow up on kidney stone pain. KUB was ordered. do not have results Review of Systems PHQ Score Initial Depression Screen Score: 0 SCORE Physical Exam Vitals & Measurements T: 37.0 ?C(Temporal Artery) HR: 84(Peripheral) RR: 22 BP: 152/90 SpO2: 100% HT: 61 in HT: 154.0 cm WT: 84.2 kg WT: 185.24 lb BMI: 35.5 General: alert, no acute distress ENMT: oral mucosa moist, no pharyngeal erythema or exudate Cardiovascular: regular rate and rhythm, normal peripheral perfusion Respiratory: Lungs CTA, respirations non labored Extremities: no deformity, no trauma Neurological: oriented x 4, LOC appropriate for age, CN II-XII intact, motor strength equal & normal bilaterally, speech normal Assessment/Plan 1. Kidney stone (N20.0: Calculus of kidney) pt is visibly very uncomfortable. pt states when she is sick or in pain her seizure activity worsens. she has not contacted her neurologist about this. had a small seizure while nurse was checking her in. pt is shaking, crying and is dehydrated. provider instructed pt to go to ER. I ordered a KUB afew weeks ago to assess where the stones were, but she never went to get it done. pt was wheeled tohicle and taken to [facility] by her . offered pain medication pt declines. states it doesn't help the pain anyway. has appointment with urology on 11/18 2. Right flank pain (R10.9: Unspecified abdominal pain) pain is out of control. pt is crying shaking. and says she is having more and more seizures becauseof the pain 3. Non-smoker (Z78.9: Other specified health status) continue not smoking Orders: acetaminophen-hydrocodone, 1 tab(s), Oral, q6hr for pain, 30 tab(s), Refill(s) 0, [facility], 154, cm, 10/14/23 10:34:00 EDT, Height/Length Dosing, 85.6, kg, 10/14/23 10:34:00 EDT, Weight Dosing tamsulosin, 0.4 mg = 1 cap(s), Oral, Daily, # 30 cap(s), Refills(s) 0, Pharmacy: [facility], 154, cm, 10/14/23 10:34:00 EDT, Height/Length Dosing, 85.6, kg, 10/14/23 10:34:00 EDT, Weight Dosing Follow-up No qualifying data available Problem List/Past Medical History Ongoing Cough COVID Diarrhea Hematuria History of seizures Kidney stone Left otitis media Right flank pain Sinusitis Sore throat Historical No qualifying data Medications Flomax 0.4 mg Cap, 0.4 mg= 1 cap(s), Oral, Daily ibuprofen 800 mg Tab, 800 mg= 1 tab(s), Oral, q8hr levetiracetam 1000 mg oral tablet, See Instructions topiramate 100 mg Tab, 100 mg= 1 tab(s), Oral, BID Allergies Procardia (Tachycardia) Social History Alcohol - Denies Alcohol Use, 10/14/2023 Substance Abuse - Denies Substance Abuse, 10/14/2023 Tobacco Never (less than 100 in lifetime) Tobacco Use:. Never Smokeless Tobacco Use:. Cigarettes, Householdtobacco concerns: No., 11/07/2023[facility]:Result Comment: Electronically Signed By: Brigida Garg\.br\Date and Time Signed: 11/07/23 09:33 EDTC Urineon [id number] identified Cx Nom (U)Microbiology PROCEDURE: Urine Culture [R1] SOURCE: U CleanCatch BODY SITE: COLLECTED DATE/TIME: 10/14/2023 13:10 EDT RECEIVED DATE/TIME: 10/14/2023 18:01 EDT START DATE/TIME: 10/14/2023 18:01 EDT FREE TEXT SOURCE: Brigida Garg Jodi L FINAL REPORTS Final Report [] Verified Date/Time: 10/16/2023 10:36 EDT 3,000 cfu/ml Mixed skin contaminants Performing Locations R1: This test was performed at: [facility], [address] [place] [address], [address] [place] [address], MjsykbKbrbkqMiddletown HospitalComment on above:Performed By: #### [id number] #### [facility] [address] [place], [place] [id number] Visit Summaryon [id number] Visit Summary LIANA JASON :1985 Visit Date:10/14/2023 Ambulatory Visit Instructions Your Diagnosis Kidney stone Right flank pain Hematuria BMI 36.0-36.9,adult Adult-onset obesity Non-smoker Your Care Team Attending Physician - Brigida Garg Primary Care Physician - Brigida Garg This Is Your Medications List acetaminophen-hydrocodone (acetaminophen-hydrocodone 325 mg-5 mg oral tablet) levetiracetam (levetiracetam 1000 mg oral tablet) tamsulosin (Flomax 0.4 mg Cap) tizanidine (tiZANidine 4 mg Tab) topiramate (topiramate 100 mg Tab) trazodone (traZODONE 50 mg Tab) Discharge Vitals Temperature (Temporal Artery) 36.8 ?C Heart Rate (Peripheral) 96 Respiratory Rate 20 Blood Pressure 115/60 Height 154 cm Height 61 in Weight 85.60 kg Weight 188.32 lb BMI 36.09 Medications What How Much When Instructions Unchanged acetaminophen-hydrocodone (acetaminophen-hydrocodone 325 mg-5 mg oral tablet) 1 Tablets By Mouth Every 6 hours as needed for for pain Unchanged levetiracetam (levetiracetam 1000 mg oral tablet) See instructions Take 1 and 1/ 2 tablets BID Unchanged tamsulosin (Flomax 0.4 mg Cap) 1 Capsules By Mouth Every day Unchanged tizanidine (tiZANidine 4 mg Tab) 2 [...] currently receiving treatment for. Cough COVID Diarrhea Hematuria History of seizures Kidney stone Left otitis media Right flank pain Sinusitis Sore throat Patient Survey You may receive a survey via text or e-mail asking about your office visit. Please share your experience with us by completing your survey. We appreciate your feedback and thank you for choosing us for your care. [facility]-14-2023 Coding Summary. [id number] [file] [id number] (more content not included)...[facility] Consenton [id number]#1.00TIFF [facility] Medicine Office/Clinic Noteon 10-14-2023 Family Medicine Office/Clinic NoteHPI Staff Liana is a 38 year old female presenting to discuss pain pt had kidney stone and continues to have pain. burning and stingy with urination, hematuria when voiding.constant pain. History of Present Illness pt presents today for pain due to kidney stone Review of Systems PHQ Score Initial Depression Screen Score: 0 SCORE Physical Exam Vitals & Measurements T: 36.8 ?C(Temporal Artery) HR: 96(Peripheral) RR: 20 BP: 115/60 SpO2: 99% HT: 61 in HT: 154 cm WT: 85.60 kg WT: 188.32 lb BMI: 36.09 General: alert, no acute distress ENMT: oral mucosa moist, no pharyngeal erythema or exudate Cardiovascular: regular rate and rhythm, normal peripheral perfusion Respiratory: Lungs CTA, respirations non labored Extremities: no deformity, no trauma Neurological: oriented x 4, LOC appropriate for age, CN II-XII intact, motor strength equal & normal bilaterally, speech normal right CVA tenderness Assessment/Plan 1. Kidney stone (N20.0: Calculus of kidney) pt had renal u/s last week and was found to have a non non-obstructing stone. order for KUB provided. referral to urology sent. she has 2 stones on right and a cyst on left kidney. Ordered: ketorolac, 60 mg = 2 mL, Injection, IntraMuscular, Once, Stop date 10/14/23 12:03:00 EDT, Routine, Start date 10/14/23 12:03:00 EDT, 10/14/23 12:03:00 EDT nitrofurantoin, 100 mg = 1 cap(s), Oral, BID, X 7 day(s), # 14 cap(s), Refills(s) 0, Pharmacy: [facility], 154, cm, 10/14/23 10:34:00 EDT, Height/Length Dosing, 85.6, kg, 10/14/23 10:34:00 EDT, [place] D[place] [facility] Urine Culture Urnls Dip Stick Auto w/o Microscopy POC 59712 2. Right flank pain (R10.9: Unspecified abdominal pain) pain is not improving at all. is having difficulty getting through work due to the pain. will give 60mg of toradol in office today. medication agreement signed and OARRS report reviewed will also prescribe narcotic to help with the pain. will send urine for culture Ordered: ketorolac, 60 mg = 2 mL, Injection, IntraMuscular, Once, Stop date 10/14/23 12:03:00 EDT, Routine, Start date 10/14/23 12:03:00 EDT, 10/14/23 12:03:00 EDT nitrofurantoin, 100 mg = 1 cap(s), Oral, BID, X 7 day(s), # 14 cap(s), Refills(s) 0, Pharmacy: [facility], 154, cm, 10/14/23 10:34:00 EDT, Height/Length Dosing, 85.6, kg, 10/14/23 10:34:00 EDT, Weight Dosing [facility] [place] Urine Culture Urnls Dip Stick Auto w/o Microscopy POC 34588 3. Hematuria (R31.9: Hematuria, unspecified) will try to get urine sample today Ordered: ketorolac, 60 mg = 2 mL, Injection, IntraMuscular, Once, Stop date 10/14/23 12:03:00 EDT, Routine, Start date 10/14/23 12:03:00 EDT, 10/14/23 12:03:00 EDT nitrofurantoin, 100 mg = 1 cap(s), Oral, BID, X 7 day(s), # 14 cap(s), Refills(s) 0, Pharmacy: [facility], 154, cm, 10/14/23 10:34:00 EDT, Height/Length Dosing, 85.6, kg, 10/14/23 10:34:00 EDT, Weight Dosing [facility] [place] Urine Culture Urnls Dip Stick Auto w/o Microscopy POC 10613 4. BMI 36.0-36.9,adult (Z68.36: Body mass index [BMI] 36.0-36.9, adult) BMI education complete Ordered: ketorolac, 60 mg = 2 mL, Injection, IntraMuscular, Once, Stop date 10/14/23 12:03:00 EDT, Routine, Start date 10/14/23 12:03:00 EDT, 10/14/23 12:03:00 EDT nitrofurantoin, 100 mg = 1 cap(s), Oral, BID, X 7 day(s), # 14 cap(s), Refills(s) 0, Pharmacy: [facility], 154, cm, 10/14/23 10:34:00 EDT, Height/Length Dosing, 85.6, kg, 10/14/23 10:34:00 EDT, Weight Dosing [facility] [place] Urine Culture Urnls Dip Stick Auto w/o Microscopy POC 27200 5. Adult-onset obesity (E66.9: Obesity, unspecified) see above Ordered: ketorolac, 60 mg = 2 mL, Injection, IntraMuscular, Once, Stop date 10/14/23 12:03:00 EDT, Routine, Start date 10/14/23 12:03:00 EDT, 10/14/23 12:03:00 EDT nitrofurantoin, 100 mg = 1 cap(s), Oral, BID, X 7 day(s), # 14 cap(s), Refills(s) 0, Pharmacy: [facility], 154, cm, 10/14/23 10:34:00 EDT, Height/Length Dosing, 85.6, kg, 10/14/23 10:34:00 EDT, Weight Dosing [facility] [place] Urine Culture Urnls Dip Stick Auto w/o Microscopy POC 08016 6. Non-smoker (Z78.9: Other specified health status) continue not smoking Ordered: nitrofurantoin, 100 mg = 1 cap(s), Oral, BID, X 7 day(s), # 14 cap(s), Refills(s) 0, Pharmacy: [facility], 154, cm, 10/14/23 10:34:00 EDT, Height/Length Dosing, 85.6, kg, 10/14/23 10:34:00 EDT, Weight Dosing Urine Culture Orders: acetaminophen-hydrocodone, 1 tab(s), Oral, q6hr for pain, 15 tab(s), Refill(s) 0, [facility], 154, cm, 10/03/23 10:57:00 EDT, Height/Length Dosing, 859, kg, 10/03/23 10:57:00 EDT, Weight Dosing acetaminophen-hydrocodone, 1 tab(s), Oral, q6hr for pain, 30 tab(s), Refill(s) 0, [facility], 154, cm, 10/14/23 10:34:00 EDT, Height/Length Dosing, 85.6, kg, 10/14/23 10:34:00 EDT, Weight D (more content not included)... [facility]:Result Comment: Electronically Signed By: Brigida Garg.br\Date and Time Signed: 10/14/23 13:32 EDT Medication Consenton [id number] Consent [id number]#1.00[facility] Hospital[facility] Orderon [id number] Order [id number]#1.00[facility] HospitalPhysician Referralon [id number] Referral [id number]#1.00[facility] HospitalRAD - Ultrasound Reporton [id number] - Ultrasound Report [id number]#1.00[facility] HospitalC Urineon [id number] identified Cx Nom (U)Microbiology PROCEDURE: Urine Culture [R1] SOURCE: U CleanCatch BODY SITE: COLLECTED DATE/TIME: 10/03/2023 11:32 EDT RECEIVED DATE/TIME: 10/03/2023 17:31 EDT START DATE/TIME: 10/03/2023 17:31 EDT FREE TEXT SOURCE: ROSETTA WALTERS, NYDIA SARGENT CNP, NYDIA Sorensen FINAL REPORTS Final Report [] Verified Date/Time: 10/05/2023 11:24 EDT 4,000 cfu/ml Mixed skin contaminants Performing Locations R1: This test was performed at: [facility], [address] [place] [address], [id number] , , FgykgiOutmcyMiddletown HospitalComment on above:Performed By: #### [id number] #### [facility] [address] [place] [id number] Visit Summaryon [id number] Visit Summary LIANA JASON :1985 Visit Date:10/03/2023 Ambulatory Visit Instructions Your Diagnosis Costovertebral angle tenderness Hematuria of undiagnosed cause Dysuria Scanty urine BMI 36.0-36.9,adult Non-smoker Your Care Team Attending Physician - NYDIA SARGENT CNP Primary Care Physician - Brigida Garg This Is Your Medications List levetiracetam (levetiracetam 1000 mg oral tablet) tizanidine (tiZANidine 4 mg Tab) topiramate (topiramate 100 mg Tab) trazodone (traZODONE 50 mg Tab) Discharge Vitals Heart Rate (Peripheral) 80 Respiratory Rate 18 Blood Pressure 130/84 Height 154.0 cm Height 61 in Weight 85.9 kg Weight 188.98 lb BMI 36.22 What to do next You Need to Complete the Following Urine Culture, Urine, Clean Catch, Routine collect, 10/03/23, Order for future visit, Nurse collect, [facility] Medicine Office/Clinic Noteon [id number] Medicine Office/Clinic NoteHPI Staff Liana is a 38 year old female presenting for acute uti symptoms Dysuria: Onset: 1 week ago Symptoms: Burning, hesitancy , intermittent flank pain rates 7/10 with walking 4 with sitting OTC used: Tylenol, Advil Last UTI: 2-3 years ago Hx of kidney stones: Pt had a small one was able pass on her own 7-8 years ago Pt stopped her period 2-3 days ago, hasn't taking any medicine today. UA in office documented in chart History of Present Illness 38 year old patient of Adolph Martin presents today for an acute visit for evaluation of UTI.She reports her symptoms began about one week ago. She states she took some acetaminophen and this has not helped. She thought at first the dysuria was due to her menstrual cycle but that ended 2-3 days ago. She states the dysuria continued and she has hesitancy, and bilateral flank pain. She reports she has kidney stones in the past and it has been about 2-3 years ago since she has had a UTI. Review of Systems PHQ Score Initial Depression Screen Score: 0 SCORE Constitutional: no fever, no chills, no sweats, no weakness Skin: no Jaundice, no rash, no lesions, nopetechiae Respiratory: no shortness of breath, no cough, no orthopnea, no wheezing Cardiovascular: no chest pain, no palpitations, no edema Genitourinary: no dysuria, no hematuria, no discharge, no pain Musculoskeletal: no back pain, no trauma Neurologic: no headache, no dizziness, no numbness, no weakness Psychiatric: no sleeping problems, no irritability, no mood swings/depression. Additional ROS info: Except as noted in the above Review of Systems and in the History of Present Illness all other systems have been reviewed and are negative or noncontributory. Physical Exam Vitals & Measurements HR: 80(Peripheral) RR: 18 BP: 130/84 HT: 61 in HT: 154.0 cm WT: 85.9 kg WT: 188.98 lb BMI: 36.22 General: alert, moderate distress Skin: warm, dry Head: no trauma, normocephalic Neck: Trachea midline, no adenopathy, no tenderness Eye: normal conjunctiva, sclera clear Cardiovascular: regular rate and rhythm, normal peripheral perfusion Respiratory: Lungs CTA, respirations non labored Gastrointestinal: soft, non distended, moderate above the pubic region tenderness, no guarding. Back: Moderate Bilateral CV tenderness, Normal ROM, Normal alignment. Extremities: no deformity, no trauma Neurological: oriented x 4, LOC appropriate for age speech normal Psychiatric: cooperative, affect tearful, normal judgement, normal psychiatric thoughts. Assessment/Plan 1. Costovertebral angle tenderness (M54.9: Dorsalgia, unspecified) POCT UA - leucocytes & blood- Given patient CV tenderness and previous hx of renal calcui - Order for STAT US of bilateral kidneys sent to [facility] Awaiting results of the US f/u in 5 days if no improvement Ordered: sulfamethoxazole-trimethoprim, 1 tab(s), Oral, q12hr for 5 day(s), 10 tab(s), Refill(s) 0, [facility], 154, cm, 10/03/23 10:57:00 EDT, Height/Length Dosing, 859, kg, 10/03/23 10:57:00EDT, Weight Dosing US Renal 2. Hematuria of undiagnosed cause (R31.9: Hematuria, unspecified) POCT UA - leucocytes & blood- Given patient CV tenderness and previous hx of renal calcui - Order for STAT US of bilateral kidneys sent to [facility] Awaiting results of the US f/u in 5 days if no improvement Ordered: sulfamethoxazole-trimethoprim, 1 tab(s), Oral, q12hr for 5 day(s), 10 tab(s), Refill(s) 0, [facility], 154, cm, 10/03/23 10:57:00 EDT, Height/Length Dosing, 859, kg, 10/03/23 10:57:00EDT, Weight Dosing US Renal 3. Dysuria (R30.0: Dysuria) POCT UA - leucocytes & blood- Given patient CV tenderness and previous hx of renal calcui - Order for STAT US of bilateral kidneys sent to [facility] Awaiting results of the US f/u in 5 days if no improvement Ordered: sulfamethoxazole-trimethoprim, 1 tab(s), Oral, q12hr for 5 day(s), 10 tab(s), Refill(s) 0, [facility], 154, cm, 10/03/23 10:57:00 EDT, Height/Length Dosing, 859, kg, 10/03/23 10:57:00EDT, Weight Dosing Urine Culture Urnls Dip Stick Auto w/o Microscopy POC 60968 US Renal 4. Scanty urine (R34: Anuria and oliguria) POCT UA - leucocytes & blood- Given patient CV tenderness and previous hx of renal calcui - Order for STAT US of bilateral kidneys sent to [facility] Awaiting results of the US f/u in 5 days if no improvement Ordered: sulfamethoxazole-trimethoprim, 1 tab(s), Oral, q12hr for 5 day(s), 10 tab(s), Refill(s) 0, [facility], 154, cm, 10/03/23 10:57:00 EDT, Height/Length Dosing, 859, kg, 10/03/23 10:57:00EDT, Weight Dosing Urine Culture Urnls Dip Stick Auto w/o Microscopy POC 22117 US Renal 5. BMI 36.0-36.9,adult (Z68.36: Body mass index [BMI] 36.0-36.9, adult) The standard range for ages 18 and older is >=18.5 and < 25 kg/m2. Your BMI today was above this range, this falls in the overweight to obese category and there are medical benefits to weight loss. We can offer community health counselor (more content not included)...[facility]Comment on above:Result Comment: Electronically Signed By: NYDIA SARGENT CNP.ken\Date and Time Signed: 10/03/23 15:28 EDTPatient Educationon [id number] EducationUrology Dysuria Dysuria is pain or discomfort during urination. The pain or discomfort may be felt in the part of the body that drains urine from the bladder (urethra) or in the surrounding tissue of the genitals. The pain may also be felt in the groin area, lower abdomen, or lower back. You may have to urinate frequently or have the sudden feeling that you have to urinate (urgency). Dysuria can affect anyone, but it is more common in females. Dysuria can be caused by many different things, including: ? Urinary tract infection. ? Kidney stones or bladder stones. ? Certain STIs (sexually transmitted infections), such as chlamydia. ? Dehydration. ? Inflammation of the tissues of the vagina. ? Use of certain medicines. ? Use of certain soaps or scented products that cause irritation. Follow these instructions at home: Medicines ? Take fmor-zqa-xjqmchs and prescription medicines only as told by your health care provider. ? If you were prescribed an antibiotic medicine, take it as told by your health care provider. Do not stop taking the antibiotic even if you start to feel better. Eating and drinking ? Drink enough fluid to keep your urine pale yellow. ? Avoid caffeinated beverages, tea, and alcohol. These beverages can irritate the bladder and make dysuria worse. In males, alcohol may irritate the prostate. General instructions ? Watch your condition for any changes. ? Urinate often. Avoid holding urine for long periods of time. ? If you are female, you should wipe from front to back after urinating or having a bowel movement.Use each piece of toilet paper only once. ? Empty your bladder after sex. ? Keep all follow-up visits. This is important. ? If you had any tests done to find the cause of dysuria, it is up to you to get your test results.Ask your health care provider, or the department that is doing the test, when your results will be ready. Contact a health care provider if: ? You have a fever. ? You develop pain in your back or sides. ? You have nausea or vomiting. ? You have blood in your urine. ? You are not urinating as often as you usually do. Get help right away if: ? Your pain is severe and not relieved with medicines. ? You cannot eat or drink without vomiting. ? You are confused. ? You have a rapid heartbeat while resting. ? You have shaking or chills. ? You feel extremely weak. Summary ? Dysuria is pain or discomfort while urinating. Many different conditions can lead to dysuria. ? If you have dysuria, you may have to urinate frequently or have the sudden feeling that you have to urinate (urgency). ? Watch your condition for any changes. Keep all follow-up visits. ? Make sure that you urinate often and drink enough fluid to keep your urine pale yellow. This information is not intended to replace advice given to you by your health care provider. Make sure you discuss any questions you have with your health care provider. Document Revised: 11/17/2020 Document Reviewed: 11/17/2020 [employer] Patient Education ? 2022 [place]. Hematuria, Adult Hematuria is blood in the urine. Blood may be visible in the urine, or it may be identified with a test. This condition can be caused by infections of the bladder, urethra, kidney, or prostate. Otherpossible causes include: ? Kidney stones. ? Cancer of the urinary tract. ? Too much calcium in the urine. ? Conditions that are passed from parent to child (inherited conditions). ? Exercise that requires a lot of energy. Infections can usually be treated with medicine, and a kidney stone usually will pass through your urine. If neither of these is the cause of your hematuria, more tests may be needed to identify the cause of your symptoms. It is very important to tell your health care provider about any blood in your urine, even if it ispainless or the blood stops without treatment. Blood in the urine, when it happens and then stops and then happens again, can be a symptom of a very serious condition, including cancer. There is no pain in the initial stages of many urinary cancers. Follow these instructions at home: Medicines ? Take bljz-rpg-oeisclj and prescription medicines only as told by your health care provider. ? If you were prescribed an antibiotic medicine, take it as told by your health care provider. Do not stop taking the antibiotic even if you start to feel better. Eating and drinking ? Drink enough fluid to keep your urine pale yellow. It is recommended that you drink 3?4 quarts (2.8?3.8 L) a day. If you have been diagnosed with an infection, drinking cranberry juice in addition to large amounts of water is recommended. ? Avoid caffeine, tea, and carbonated beverages. These tend to irritate the bladder. ? Avoid alcohol because it may irritate the prostate (in males). General instructions ? If you have been diagnosed with a kidney stone, follow y (more content not included)...[facility] 73-59-3544Mcrkd [id number]#1.00TIFFMain Campus Medical Center [id number]#1.00TIFF [facility] Note-Physicianon 27-86-8498GV Note-Physician [id number]#1.00TIFFMiddletown HospitalRAD - MISCon 98-08-3378YLC - MISC [id number]#1.00TIFMemorial HospitalCOVID Quick Testingon 38-80-5825QkvgqvOoazuqisWxgaz [employer] Other COVID/FLU RT-PCRon 30-04-6880EPNC-CoV-2 (COVID-19) RNA CECILE+probe Ql (Unsp spec)PositiveNort Dropl[employer] Other COVID/FLU RT-PCRNegativeNoTapestry Other Ambulatory Visit Summaryon 31-12-7834Jpludqrkfs Visit Summary JASON LIANA :1985 Visit Date:03/14/2023 Ambulatory Visit Instructions Your [...] When: Only if needed [facility] [address] [facility] [place] [address]- Medications What How Much When Why Instructions New benzonatate (Tessalon 100 mg Cap) 1 Capsules By Mouth 3 times a day Cough Duration: 10 Days Pickup at [facility] Unchanged levetiracetam (levetiracetam 1000 mg oral [...] physician if questions or concerns Pharmacy Information [facility]: [address] [place], [place] [id number] [phone] What How Much When Comments Stop Taking [...] these instructions at home: Medicines ? Take xxoy-vnn-nxojnsu and prescription medicines only as told by [...] if: ? You co (more content not included)...[facility] Medicine Office/Clinic Noteon 75-63-1401Tvsovc Medicine Office/Clinic NoteChief Complaint Tested Postivie for COVID- History of Present Illness Liana is a 37 yo female presenting today for acute video visit d/t being COVID positive. Pt's PCP is Brigida Martin Pt reports symptoms started 3 days [...] interactive video communications from my office using [employer] due to the restrictions of the COVID-19 [...] day(s), # 30 cap(s), Refills(s) 0, Pharmacy: [facility], 154, cm, 03/14/23 11:26:00 EST, Height/Length [...] nocturnal diarrhea, rectal bleeding, pus in stool, fever> 101.3*F, ABRAHAM, family hx of colon CA, celiac dz or IBD. Wetzel stool form scale discussed. Will order CMP, [...] with watery diarrhea; crackers (more content not included)...[facility]letown HospitalComment on above:Result Comment: Electronically Signed By: Natanael LOZANO, Leatha Alvarado\.br\Date and Time Signed: 03/14/23 11:47 ESTPatient Educationon 17-29-9324Mcneuvs EducationENT Cough, Adult Coughing is a reflex that [...] these instructions at home: Medicines ? Take cvny-xfe-mluhlyx and prescription medicines only as told by [...] a condition that needs treatment. ? Take lsbu-vcm-unmxjcf and prescription medicines only as told by your health care provider. ? Always cover your mouth when you cough. ? Contact a health care provider if you have new symptoms or a cough that does not get better after2?3 weeks or gets worse. This information is not intended to replace advice given to you by your health care provider. Make sure you discuss any questions you have with your health care provider. Document Revised: 04/26/2019 Document Reviewed: 04/26/2019 Elsevier Patient Education ? 2022 [employer] Infectious Disease Diarrhea, Adult Diarrhea is [...] oral rehydration solution (ORS). This is an orwd-sqx-hosrmlx medicine that helps return your body to [...] sports drinks, and soda. ? Eat bland, kksx-pp-ixiadb foods in small amounts as you are able. These foods include bananas, applesauce, rice, lean meats, toast, and crackers. ? Avoid alcohol. ? Avoid spicy or fatty foods. Medicines (more content not included)...[facility]letown HospitalProvider Letteron [phone] Letter March 14, 2023 LIANA JAS[place] [address] : 1985 To Whom It May Concern, Please excuse above patient from work. Date of Illness: From: _03/14/2023 To: _03/16/2023 May Return to Work On:03/17/2023 Sincerely, Leatha [facility] [address] [place] [address] XmplsbMkzpapPaulding County HospitalAmbulatory Visit Summaryon 67-15-1236Zvexbluogw Visit Summary LIANA JASON :1985 Visit Date:02/11/2023 [...] you for choosing us for your care. [facility] HospitalFacape cod and [facility] Medicine Office/Clinic Noteon 52-98-4157Qombli Medicine Office/Clinic NoteHPI Staff Liana is a 37 year old female presenting to [facility] Establish Care: History: Any previous diagnosis: Anxiety,Menorrhagia, [...] afraid to take anything didn't know what wouldbe safe. 02/10/23 tested for covid was negative. [...] day(s), # 21 tab(s), Refills(s) 0, Pharmacy: [facility], 154, cm, 02/11/23 10:10:00 EDT, Height/Length Dosing, 86.7, kg, 02/11/23 10:10:00 EDT, Weight Dosing 2. Sinusitis (J32.9: Chronic sinusitis, unspecified) see above Ordered: methylPREDNISolone, = 1 packet(s), Oral, As Directed, as directed on package labeling, X 6 day(s), # 21 tab(s), Refills(s) 0, Pharmacy: [facility], 154, cm, 02/11/23 10:10:00 EDT, Height/Length Dosing, 86.7, kg, 02/11/23 10:10:00 EDT, Weight Dosing 3. Non-smoker (Z78.9: Other specified health status) continue not smoking Ordered: methylPREDNISolone, = 1 packet(s), Oral, As Directed, as directed on package labeling, X 6 day(s), # 21 tab(s), Refills(s) 0, Pharmacy: [facility], 154, cm, 02/11/23 10:10:00 EDT, Height/Length Dosing, 86.7, kg, 02/11/23 10:10:00 EDT, Weight Dosing 4. BMI 36.0-36.9,adult (Z68.36: Body mass index [BMI] 36.0-36.9, adult) BMI education complere Ordered: methylPREDNISolone, = 1 packet(s), Oral, As Directed, as directed on package labeling, X 6 day(s), # 21 tab(s), Refills(s) 0, Pharmacy: [facility], 154, cm, 02/11/23 10:10:00 EDT, Height/Length Dosing, 86.7, kg, 02/11/23 10:10:00 EDT, Weight Dosing Orders: amoxicillin, 500 mg = 1 tab(s), Oral, TID, X 7 day(s), # 21 tab(s), Refills(s) 0, Pharmacy: [facility], 154, cm, 02/11/23 10:10:00 EDT, Height/Length [...] Smokeless Tobacco Use:. Household tobacco concerns: No., 02/11/2023[facility] Comment on above:Result Comment: Electronically Signed By: Brigida Garg\.br\Date and Time Signed: 02/11/23 10:38 EDTXR hand RT min 3V*on 41-04-9955IN hand RT min 3V*[facility] [place] [address] [place] [address] XRay Report Signed Patient: Liana Jason MR#: [id number] : 1985 Acct:[id number] Age/Sex: 36 / F ADM Date: 08/18/22 [facility] Attending Dr: Joycelyn Nash APRN Copies to: [...] Haider Law M.D.08/18/2022 1:35 PM Dictation Location: [place] [address] Transcribed By: MAHENDRA 08/18/22 1335 Dictated By: Haider Law DO 08/18/22 1332 Signed By: 08/18/22 1335[facility] HospitalXR hand RT min 3V*[facility] [employer] Other XR hand RT min 3V*[facility] [employer] Other XR hand RT min 3V*[facility] Dro[employer] Other XR hand RT min 3V*CATRACHO [employer] [address]Rnnvp Dropl[employer] Other XR hand RT min 3V*XRay ReportSan Dimas Dro[employer] Other XR hand RT min 3V*SignedSan Dimas [employer] Other XR hand RT min 3V*Patient: Liana Jason MR#: [id number] [employer] Other XR hand RT min 3V*93[place] [employer] Other XR hand RT min 3V*: 1985 Acct:[id number] [employer] Other XR hand RT min 3V*Age/Sex: 36 / F ADM Date: 08/18/22 [facility] [employer] Other XR hand RT min 3V*Loc: XDUCLY Room: Type: [facility] Dropl[employer] Other XR hand RT min 3V*Attending Dr: Joycelyn Nash [facility] [employer] Other XR hand RT min 3V*Copies to: Joycelyn Nash [employer] Other XR hand RT min 3V*Ordering Provider: Joycelyn Nash [employer] Other xr hand RT min 3V*Date of Service: 08/18/22[place] [employer] Other XR hand RT min 3V* XR/XR hand RT min 3V*: [facility]Pe[facility] [employer] Other XR hand RT min 3V*4 views right hand plain filmPeacehealth Southwest Medical Center [employer] Other XR hand RT min 3V*COMPARISON: [facility] [employer] Other XR hand RT min 3V*HISTORY: Right hand injury. Seizure. Third metacarpal painPeacehealth Southwest Medical Center [employer] Other XR hand RT min 3V*ACUTE FINDINGS: [facility] [employer] Other XR hand RT min 3V*DEGENERATIVE CHANGE: Unremarkable [facility] [employer] Other XR hand RT min 3V*SOFT TISSUE FINDINGS: Unremarkable [facility] [employer] Other XR hand RT min 3V*JOINT EFFUSION: [facility] [employer] Other XR hand RT min 3V*POSTOP CHANGES: [facility] [employer] Other XR hand RT min 3V*BONY MINERALIZATION: AdequateSan Dimas [employer] Other XR hand RT min 3V* XR/XR hand RT min 3V*[facility] [employer] Other XR hand RT min 3V*IMPRESSION: No acute findingsPeacehealth Southwest Medical Center [employer] Other XR hand RT min 3V*Impression dictated by: Haider Law M.D.08/18/2022 1:35 PMNSmallpox Hospital [employer] Other XR hand RT min 3V*Dictation Location: [address] [employer] Other XR hand RT min 3V*Transcribed By: MAHENDRA 08/18/22 1335 [facility] [employer] Other XR hand RT min 3V*Dictated By: ThanhHaider Pcao DO 08/18/[address] [place] [address] [employer] Other xr hand RT min 3V*Signed By:[employer] Other xr hand RT min 3V*08/18/22 [facility] HospitalLIFESYNC HOLD[facility] Dropl[employer] Other cb AUTO DIFFon [id number] #0.1 103/ulNormal 0.0-0.1[facility] Memorial HospitalComment on above:Performed By: #### CBC #### [facility] [address] [place] [address] Dr. Ayo MartinezBasophils/100 WBC (Bld)0.9 %Normal0.2-2.0[facility] Comment on above:Performed By: #### CBC #### [facility] [address] [place] [address] Dr. Ayo Miranda #0.2 103/ulNormal0.0-0.7The [facility] For RehabilitationComment on above: Performed By: #### CBC #### [facility] [address] [place] [address] Dr. Ayo Locoosinophils/100 WBC (Bld)2.1 %Normal0.9-7.0[facility] Comment on above:Performed By: #### CBC #### [facility] [address] [place] [address] Dr. Ayo Locorythrocyte distribution width (RBC) [Ratio]13.2 %Abhded85.0-15.0 [facility] HospitalComment on above:Performed By: #### CBC #### [facility] [address] [place] [address] Dr. Ayo MartinezHematocrit (Bld) [Volume fraction]36.1 %Khibgj95.0-48.0[facility] Memorial HospitalComment on above:Performed By: #### CBC #### [facility] [address] [place] [address] Dr. Ayo MartinezHemoglobin (Bld) [Mass/Vol]11.9 g/dLCritically low12.0-16.0The [facility] RehabilitationComment on above:Performed By: #### CBC #### [facility] [address] [place] [address] Dr. Ayo Mendenhall #0.01 10e3/ulNormal0.00-0.03The [facility] For RehabilitationComment on above:Performed By: #### CBC #### [facility] [address] [place] [address] Dr. Ayo Mendenhall %0.1 %Normal0.0-0.5The [facility] For RehabilitationComment on above: Performed By: #### CBC #### [facility] [address] [place] [address] Dr. Ayo Ferrer #2.0 103/ulNormal1.2-3.8The [facility] For RehabilitationComment on above:Performed By: #### CBC #### [facility] [address] [place] [address] Dr. Ayo Joneshocytes/100 WBC (Bld)28.4 %Jfkxjz12.5-60.0The [facility] For RehabilitationComment on above:Performed By: #### CBC #### [facility] [address] [place] [address] Dr. Ayo Aguilar DIFF REQNONormalThe [facility] For RehabilitationComment on above: Performed By: #### CBC #### [facility] [address] [place] [address] Dr. Ayo Castro (RBC) [Entitic mass]27.7 kaPcardc49.7-34.0The [facility] For RehabilitationComment on above:Performed By: #### CBC #### [facility] [address] [place] [address] Dr. Ayo Castro (RBC) [Mass/Vol]33.0 g/vYCoyxff63.9-35.2The [facility] For RehabilitationComment on above:Performed By: #### CBC #### [facility] [address] [place] [address] Dr. Yilan ChangMCV (RBC) [Entitic vol]84.0 oUIwkpvt71.0-99.0The [facility] For RehabilitationComment on above:Performed By: #### CBC #### [facility] [address] [place] [address] Dr. Ayo Park #0.6 103/ulNormal0.3-0.8The [facility] For RehabilitationComment on above:Performed By: #### CBC #### [facility] [address] [place] [address] Dr. Ayo Moserocytes/100 WBC (Bld)7.8 %Normal1.7-12.0The [facility] Comment on above:Performed By: #### CBC #### [facility] [address] [place] [address] Dr. Ayo Carvajal #4.3 103/ulNormal1.4-6.5The [facility] For RehabilitationComment on above:Performed By: #### CBC #### [facility] [address] [place] [address] Dr. Ayo Footeutrophils/100 WBC (Bld)60.7 %Eyxtct19.0-75.0The [facility] For RehabilitationComment on above:Performed By: #### CBC #### [facility] [address] [place] [address] Dr. Ayo Pedrozalet mean volume (Bld) [Entitic vol]9.6 fLNormal9.5-13.5The [facility] RehabilitationComment on above:Performed By: #### CBC #### [facility] [address] [place] [address] Dr. Ayo ShoemakerT245 103/xhTjuyje043-423Uxv [facility] RehabilitationComment on above: Performed By: #### CBC #### [facility] [address] [place] [address] Dr. Ayo MartinezRBC4.30 106/ulNormal4.20-5.40The [facility] For RehabilitationComment on above:Performed By: #### CBC #### [facility] [address] [place] [address] Dr. Ayo MartinezWBC7.0 103/ulNormal4.0-11.0The [facility] For RehabilitationComment on above: Performed By: #### CBC #### [facility] [address] [place] [address] Dr. Ayo Schroeder 14(COMP METB)on 02-15-1606Wzvmzim [Mass/Vol]3.5 g/dLNormal 3.4-5.0The [facility] For RehabilitationComment on above:Performed By: #### CMP #### [facility] [address] [place] [address] Dr. Ayo MartinezAlbumin/Globulin [Mass ratio]0.8 {ratio}NormalThe [facility] For RehabilitationComment on above:Performed By: #### CMP #### [facility] [address] [place] [address] Dr. Ayo ThomasP [Catalytic activity/Vol]129 U/LCritically pcgm96-401Ehc [facility] RehabilitationComment on above:Performed By: #### CMP #### [facility] [address] [place] [address] Dr. Ayo Keating [Catalytic activity/Vol]20 U/FLeojdj03-86Jeu [facility] For RehabilitationComment on above:Performed By: #### CMP #### [facility] [address] [place] [address] Dr. Ayo Caceres gap [Moles/Vol]12.3 mmol/LNormalThe [facility] Comment on above:Performed By: #### CMP #### [facility] [address] [place] [address] Dr. Ayo MartinezAST [Catalytic activity/Vol]18 U/JKtjdox20-44Ztx [facility] RehabilitationComment on above:Performed By: #### CMP #### [facility] [address] [place] [address] Dr. Ayo MartinezBilirubin [Mass/Vol]0.3 mg/dLNormal0.2-1.0The [facility] Comment on above:Performed By: #### CMP #### [facility] [address] [place] [address] Dr. Ayo MartinezCalcium [Mass/Vol]8.9 mg/dLNormal8.5-10.1The [facility] Comment on above:Performed By: #### CMP #### [facility] [address] [place] [address] [address] Ayo MartinezChloride [Moles/Vol]108 mmol/LCritically inyz02-891YnlTrihealth Mccullough-Hyde Memorial HospitalComment on above:Performed By: #### CMP #### [facility] [address] [place] [address] [address] Ayo MartinezCO2 [Moles/Vol]24.8 mmol/AAzptfc90.0-32.0The [facility] Comment on above:Performed By: #### CMP #### [facility] [address] [place] [address] Dr. Ayo MartinezCreatinine [Mass/Vol]0.87 mg/dLNormal0.55-1.02The [facility] RehabilitationComment on above:Performed By: #### CMP #### [facility] [address] [place] [address] Dr. Ayo LocoGFR-AF BURMESE>60Normal>=60The [facility] For RehabilitationComment on above:Performed By: #### CMP #### [facility] [address] [place] [address] Dr. Ayo LocoGFR-NON AF BURMESE>60Normal>=60The [facility] RehabilitationComment on above:Performed By: #### CMP #### [facility] [address] [place] [address] Dr. Ayo MartinezGlobulin (S) [Mass/Vol]4.4 g/dLNormalThe [facility] RehabilitationComment on above:Performed By: #### CMP #### [facility] [address] [place] [address] Dr. Ayo MartinezGlucose [Mass/Vol]88 mg/bBIncwqn11-615Bma [facility] Comment on above:Performed By: #### CMP #### [facility] [address] [place] [address] Dr. Ayo MartinezPotassium [Moles/Vol]4.1 mmol/LNormal3.5-5.1The [facility] Comment on above:Performed By: #### CMP #### [facility] [address] [place] [address] Dr. Ayo MartinezProtein [Mass/Vol]7.9 g/dLNormal6.4-8.2[facility] Comment on above:Performed By: #### CMP #### [facility] [address] [place] [address] Dr. Ayo Suttondium [Moles/Vol]141 mmol/YFysdiv251-994Ccv [facility] Comment on above:Performed By: #### CMP #### [facility] [address] [place] [address] Dr. Ayo MartinezUrea nitrogen [Mass/Vol]10.0 mg/dLNormal7.0-18.0The [facility] RehabilitationComment on above:Performed By: #### CMP #### [facility] [address] [place] [address] Dr. Ayo Marshall nitrogen/Creatinine [Mass ratio]11.5 mg/mgNormalThe [facility] RehabilitationComment on above:Performed By: #### CMP #### [facility] [address] [place] [address] Dr. Ayo MatamorosVETIRACETAM, SERUM OR PLASMAon 00-11-5624Zdwvdoynyxzjs, S20.9 ug/sBYxoyfd75.0-40.0The [facility] RehabilitationComment on above:Performed By: #### KEPPRA #### [facility] [address] [place] [address] Dr. Ayo FrancoC AUTO DIFFon 56-18-8931TPTB #0.1 103/ulNormal0.0-0.1The [facility] For RehabilitationComment on above:Performed By: #### CBC #### [facility] [address] [place] [address] Dr. Ayo MartinezBasophils/100 WBC (Bld)0.6 %Normal0.2-2.0[facility] Comment on above:Performed By: #### CBC #### [facility] [address] [place] [address] [address] Ayo Miranda #0.2 103/ulNormal0.0-0.7The [facility] RehabilitationComment on above: Performed By: #### CBC #### [facility] [address] [place] [address] Dr. Ayo Locoosinophils/100 WBC (Bld)1.9 %Normal0.9-7.0The [facility] Comment on above:Performed By: #### CBC #### [facility] [address] [place] [address] Dr. Ayo Locorythrocyte distribution width (RBC) [Ratio]14.4 %Idwbqh74.0-15.0 The [facility] For RehabilitationComment on above:Performed By: #### CBC #### [facility] [address] [place] [address] Dr. Ayo MartinezHematocrit (Bld) [Volume fraction]37.8 %Oqrsbv23.0-48.0The [facility] For RehabilitationComment on above:Performed By: #### CBC #### [facility] [facility] [address] [place] [address] Dr. Ayo MartinezHemoglobin (Bld) [Mass/Vol]11.9 g/dLCritically low12.0-16.0The [facility] For RehabilitationComment on above:Performed By: #### CBC #### [facility] [address] [place] [address] Dr. Ayo Mendenhall #0.03 10e3/ulNormal0.00-0.03The [facility] For RehabilitationComment on above:Performed By: #### CBC #### [facility] [address] [place] [address] Dr. Ayo Mendenhall %0.4 %Normal0.0-0.5The [facility] For RehabilitationComment on above: Performed By: #### CBC #### [facility] [address] [place] [address] Dr. Ayo Jones #2.1 103/ulNormal1.2-3.8The [facility] For RehabilitationComment on above:Performed By: #### CBC #### [facility] [address] [place] [address] Dr. Ayo MartinezLymphocytes/100 WBC (Bld)25.7 %Efloxh48.5-60.0[facility] Hospital[facility] on above:Performed By: #### CBC #### [facility] [address] [place] [address] Dr. Ayo Aguilar DIFF REQNONormalThe [facility] For RehabilitationComment on above: Performed By: #### CBC #### [facility] [address] [place] [address] Dr. Ayo Castro (RBC) [Entitic mass]26.8 kmJutmpc10.7-34.0The [facility] Hospital[facility] on above:Performed By: #### CBC #### [facility] [address] [place] [address] Dr. Ayo Castro (RBC) [Mass/Vol]31.5 g/fGQavaii93.9-35.2The [facility] For RehabilitationComment on above:Performed By: #### CBC #### [facility] [address] [place] [address] Dr. Ayo Castro (RBC) [Entitic vol]85.1 uXOuffqb31.0-99.0[facility] on above:Performed By: #### CBC #### [facility] [address] [place] [address] Dr. Ayo Park #0.5 103/ulNormal0.3-0.8[facility] on above:Performed By: #### CBC #### [facility] [address] [place] [address] Dr. Ayo Moserocytes/100 WBC (Bld)6.1 %Normal1.7-12.0The [facility] Comment on above:Performed By: #### CBC #### [facility] [address] [place] [address] Dr. Ayo Carvajal #5.3 103/ulNormal1.4-6.5The [facility] Hospitalment on above:Performed By: #### CBC #### [facility] [address] [address] [address] Ayo Footeutrophils/100 WBC (Bld)65.3 %Gzgave37.0-75.0The [facility] on above:Performed By: #### CBC #### [facility] [address] [place] [address] Dr. Ayo Pedrozalet mean volume (Bld) [Entitic vol]9.8 fLNormal9.5-13.5The [facility] RehabilitationComment on above:Performed By: #### CBC #### [facility] [address] [place] [address] Dr. Ayo MartinezPLT320 103/flYhxbbr878-881Jer [facility] on above: Performed By: #### CBC #### [facility] [address] [place] [address] Dr. Ayo MartinezRBC4.44 106/ulNormal4.20-5.40The [facility] on above:Performed By: #### CBC #### [facility] [address] [place] [address] Dr. Ayo MartinezWBC8.1 103/ulNormal4.0-11.0The [facility] on above: Performed By: #### CBC #### [facility] [address] [place] [address] Dr. Ayo Flores T3on 88-99-7985YEMF T33.63 pg/mlLNormal2.77-5.27The [facility] on above:Performed By: #### FT3, TSH, CMP #### [facility] [address] [place] [address] Dr. Ayo Flores T4on 44-26-5343Jyhb T4 [Mass/Vol]1.00 ng/dLNormal0.78-2.19 The [facility] on above:Performed By: #### FT4 #### [facility] [address] [place] [address] Dr. Ayo Schroeder 14(COMP METB)on 34-25-3082Mnanron [Mass/Vol]3.7 g/dLNormal 3.4-5.0The [facility] For RehabilitationComment on above:Performed By: #### FT3, TSH, CMP #### [facility] [address] [address] [address] Ayo MartinezAlbumin/Globulin [Mass ratio]1.0 {ratio}NormalThe [facility] Hospital For RehabilitationComment on above:Performed By: #### FT3, TSH, CMP #### [facility] [address] [place] [address] Dr. Ayo ThomasP [Catalytic activity/Vol]136 U/LCritically zqby42-069Hnj [facility] For RehabilitationComment on above:Performed By: #### FT3, TSH, CMP #### [facility] [address] [place] [address] Dr. Ayo ThomasT [Catalytic activity/Vol]17 U/BFnnyuy59-73Sci [facility] For RehabilitationComment on above:Performed By: #### FT3, TSH, CMP #### [facility] [address] [place] [address] Dr. Ayo Caceres gap [Moles/Vol]14.7 mmol/LNormalThe [facility] Comment on above:Performed By: #### FT3, TSH, CMP #### [facility] [address] [place] [address] Dr. Ayo MartinezAST [Catalytic activity/Vol]12 U/LCritically hko31-87Xgm [facility] RehabilitationComment on above:Performed By: #### FT3, TSH, CMP #### [facility] [address] [place] [address] Dr. Ayo MartinezBilirubin [Mass/Vol]0.2 mg/dLNormal0.2-1.3The [facility] Comment on above:Performed By: #### FT3, TSH, CMP #### [facility] [address] [place] [address] Dr. Ayo MartinezCalcium [Mass/Vol]8.6 mg/dLNormal8.5-10.1The [facility] Comment on above:Performed By: #### FT3, TSH, CMP #### [facility] [address] [address] [address] Ayo MartinezChloride [Moles/Vol]105 mmol/ZFscqts45-248PoyTrihealth [facility] Comment on above:Performed By: #### FT3, TSH, CMP #### [facility] [address] [address] [address] Ayo MartinezCO2 [Moles/Vol]23.4 mmol/ECjvgem88.0-30.0[facility] Comment on above:Performed By: #### FT3, TSH, CMP #### [facility] [address] [place] [address] Dr. Ayo MartinezCreatinine [Mass/Vol]0.79 mg/dLNormal0.52-1.04[facility] Memorial HospitalComment on above:Performed By: #### FT3, TSH, CMP #### [facility] [address] [place] [address] Dr. Ayo LocoGFR-AF BURMESE>60Normal>=60The [facility] For RehabilitationComment on above:Performed By: #### FT3, TSH, CMP #### [facility] [address] [place] [address] Dr. Ayo LocoGFR-NON AF BURMESE>60Normal>=60[facility] Memorial HospitalComment on above:Performed By: #### FT3, TSH, CMP #### [facility] [address] [place] [address] Dr. Ayo MartinezGlobulin (S) [Mass/Vol]3.8 g/dLNormalThe [facility] RehabilitationComment on above:Performed By: #### FT3, TSH, CMP #### [facility] [address] [place] [address] Dr. Ayo MartinezGlucose [Mass/Vol]90 mg/kAKeoykv27-263NpnTrihealth [facility] Comment on above:Performed By: #### FT3, TSH, CMP #### [facility] [address] [place] [address] Dr. Ayo MartinezPotassium [Moles/Vol]4.1 mmol/LNormal3.4-5.0The [facility] Comment on above:Performed By: #### FT3, TSH, CMP #### [facility] [address] [address] [address] Ayo MartinezProtein [Mass/Vol]7.5 g/dLNormal6.1-8.2The [facility] Comment on above:Performed By: #### FT3, TSH, CMP #### [facility] [address] [place] [address] Dr. Ayo MartinezSodium [Moles/Vol]139 mmol/JGyrrpe315-970Djx [facility] Comment on above:Performed By: #### FT3, TSH, CMP #### [facility] [address] [place] [address] Dr. Ayo MartinezUrea nitrogen [Mass/Vol]10.0 mg/dLNormal7.0-18.0The [facility] For RehabilitationComment on above:Performed By: #### FT3, TSH, CMP #### [facility] [address] [place] [address] Dr. Ayo Marshall nitrogen/Creatinine [Mass ratio]12.7 mg/mgNoKettering Health – Soin Medical CenterComment on above:Performed By: #### FT3, TSH, CMP #### [facility] [address] [place] [address] Dr. Ayo Galicia 22-82-8885XGF9.067 uIU/mLNormal0.470-4.680The [facility] RehabilitationComment on above:Performed By: #### FT3, TSH, CMP #### [facility] [address] [place] [address] Dr. Ayo MARTINEZOhioHealth Shelby HospitalComment on above: Result Comment: <0.34 UIU/ml HYPERTHYROID 0.34-5.60 UIU/ml EUTHYROID >5.60 UIU/ml HYPOTHYROIDPerformed By: #### FT3, TSH, CMP #### [facility] [address] [place] [address] Dr. Ayo Martinez Vital Signs Date TimeVital SignValuePerforming TjpiprxcfSnysakzj34-07-0874 09:26-0500Body jlcuwt660.48 cmAmanda Shantelle [employer]CTURE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 [employer]08/20/23Team MemberRelationshipSpecialtyStart DateEnd Date Keerthi William MD [address] [place] [address] PCP - GeneralFamily Medicine06/19/23 Calderon Prescott NP [address] [address] PCP - [place] [employer]08/20/23 Richard Ferrari DO [address] [place] [address] Referring PhysicianNeurology1 Brigida Martin MD [address] [place] [address] Referring PhysicianFamily Medicine05/19/24Team MemberRelationshipSpecialtyStart End Date Keerthi William MD [address] [place] [address] PCP - GeneralFamily Medicine06/19/23 Calderon Prescott NP [address] [address] PCP - [place] [employer]08/20/23 Richard Ferrari DO [address] [address] Referring PhysicianNeurolog05/19/24 Brigida Martin MD [address] [place] [address] Referring PhysicianFamily Medicine05/19/24 Team Status: Active Member Role/Relationship Status Dates NON STAFF Primary Care Provider Active Team Status: Inactive Member Role/Relationship Status Dates Geraldine Pepper APRN Attending Provider Active S tart: February 20, 2025 End: February 20, 2025NON STAFFPrimary Care ProviderActiveStart: February 20, 2025 End: February 20, 2025 Goals (unrecognized section and content) Goals may [...] BE BASED ON THE PRIMARY CLINICAL RECORDS. [employer] provides no warranty or guarantee of the accuracy or completeness of information in this document.
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
--- NOTE | 2025-02-20 10:26 | ED.EYEPROB1 ---
HPI - Eye Problem General Chief complaint: Eye Problems Stated complaint: EYE INFECTION AND PAIN Time Seen by Provider: 02/20/25 10:16 Source: patient Mode of arrival: walk-in History of Present Illness HPI Narrative: cc - eye problem Pt woke with pain in the right eye - she does not recall any injury or foreign body. She said that she does not engage in any acivities that might injure the eye - no grinding, mechanical work,welding or other activities. She wears glasses but does not wear contact lenses. Related Data Home Medications ?Medication ?Instructions ?Recorded ?Confirmed levetiracetam 1,000 mg tablet 1,500 mg PO BID 04/07/23 11/07/23 tamsulosin 0.4 mg capsule 0.4 mg PO Q24H 11/07/23 11/07/23 topiramate 100 mg tablet 100 mg PO Q12H 11/07/23 11/07/23 trazodone 50 mg tablet 50 mg PO DAILY 11/07/23 11/07/23 Previous Rx's ?Medication ?Instructions ?Recorded ibuprofen 800 mg tablet 800 mg PO Q8H PRN pain #20 tabs 04/07/23 dicyclomine 20 mg tablet 20 mg PO TID PRN abdominal pain #7 11/07/23 tabs ondansetron 4 mg disintegrating 4 mg PO Q4H PRN nausea and 11/07/23 tablet vomiting 3 days #6 tabs tobramycin 0.3 %-dexamethasone 0.1 1 drp ophthalmic (eye) Q6H 7 days 02/20/25 % eye drops,suspension #5 mL Allergies Allergy/AdvReac Type Severity Reaction Status Date / Time nifedipine (From Procardia) AdvReac Severe Palpitation Verified 02/20/25 10:10 s PFSH PFSH Social History Smoking status: Never smoker Little interest or pleasure in doing things: not at all Feeling down, depressed, or hopeless: not at all Exam Narrative Exam Narrative: General:The patient appears well and in no apparent distress.Patient is resting comfortably on cart. Skin:Warm, dry, no pallor noted. Head:Normocephalic, atraumatic Neck:Supple, trachea mid-line, no tenderness, no lymphadenopathy Eye:Normal extraocular motion without associated pain.Pupils equal, round and reactive to light. Conjunctival injection noted. No swelling of the upper/lower eyelid.Patient?s upper eyelid was everted - no evidence of foreign body. The patient had ALCAINE/TETRACAINE applied to the right eye with fluorescein dye instilled afterward. Exam with Wood?s lamp showed uptake at the center of the right cornea. No evidence of hyphema, dendritic lesion, corneal ulcerations, preseptal cellulitis or orbital cellulitis. Ears, Nose, Mouth, and Throat:oral mucosa is moist Respiratory:Patient is in no distress Neurological:A&O x4, normal speech Psychiatric:Cooperative and interactive. Constitutional Vital Signs, click to edit/add: Last Vital Signs Temp 98 F 02/20/25 10:07 Pulse 90 02/20/25 10:07 Resp 18 02/20/25 10:07 BP 119/83 02/20/25 10:07 Pulse Ox 99 02/20/25 10:07 O2 Del Method Room Air 02/20/25 10:07 Course Vital Signs Vital signs: Vital Signs Temperature 98 F 02/20/25 10:07 Pulse Rate 90 02/20/25 10:07 Respiratory Rate 18 02/20/25 10:07 Blood Pressure 119/83 02/20/25 10:07 Pulse Oximetry 99 02/20/25 10:07 Oxygen Delivery Method Room Air 02/20/25 10:07 Temperature 98 F 02/20/25 10:07 Pulse Rate 90 02/20/25 10:07 Respiratory Rate 18 02/20/25 10:07 Blood Pressure 119/83 02/20/25 10:07 Pulse Oximetry 99 02/20/25 10:07 Oxygen Delivery Method Room Air 02/20/25 10:07 MDM - Eye Problem MDM Narrative Medical decision making narrative: The patient was found to have a corneal abrasion in the center of the right cornea. She felt better after getting tetracaine. She was discharged home with a prescription for TobraDex and was referred to Dr. Blanton the [facility] in [place] for follow-up. Discharge Plan Discharge Chief Complaint: Eye Problems Clinical Impression: Corneal abrasion Patient Disposition: Home, Self-Care Time of Disposition Decision: 10:24 Prescriptions / Home Meds: New tobramycin-dexamethasone 0.3-0.1 % drops,suspension 1 drp ophthalmic (eye) Q6H 7 Days Qty: 5 0RF No Action levetiracetam 1,000 mg tablet 1,500 mg PO BID ibuprofen 800 mg tablet 800 mg PO Q8H PRN (Reason: pain) Qty: 20 0RF trazodone 50 mg tablet 50 mg PO DAILY tamsulosin 0.4 mg capsule 0.4 mg PO Q24H topiramate 100 mg tablet 100 mg PO Q12H dicyclomine 20 mg tablet 20 mg PO TID PRN (Reason: abdominal pain) Qty: 7 0RF ondansetron 4 mg tablet,disintegrating 4 mg PO Q4H PRN (Reason: nausea and vomiting) 3 Days Qty: 6 0RF Print Language: Japanese Instructions: Corneal Abrasion (ED) Referrals: Neil Blanton MD [Physician, Opthalmology] - As soon as possible STEFANI RUBY [Primary Care Provider, Family Practice] - 1 week
[2025-02-20] MEDS: FLUORESCEIN SODIUM 1 MG STRIP OP (10:31)
[2025-02-20] MEDS: TETRACAINE HCL 0.5% OP SOL 80 DROP/4 ML BOTTLE OP (10:32)
== END 2025-02-20 10:41 | disposition home or self-care (01) ==
PROVIDERS: Emergency Provider Emergency Medicine; PCP Family Medicine
DX: S05.01XA Injury of conjunctiva and corneal abrasion without foreign body, right eye, initial encounter (principal); X58.XXXA Exposure to other specified factors, initial encounter
CPT/HCPCS: 99284